=== PATIENT | female | born 1950 | race Caucasian/White ===

== ENCOUNTER → 2018-07-18 10:04 | Outpatient (CLI) | payer MEDICARE, SELFPAY ==
--- NOTE | 2018-07-18 10:08 | MM_ITS ---
MM Dig screening mamm BI w/CAD ORDERING PHYSICIAN : Brittany Crespo PATIENT AGE: 68 years GENDER: Female COMPARISON: May 2016, June 2017, April 2015 INDICATION: ITS.REASON: SCREENING 68-year-old no hormones. No new complaints. Noncontributory family history. TECHNIQUE: Standard CC and MLO images were obtained. R2 CAD reviewed. . Additional right breast CC and nipple profile MLO included FINDINGS: Low density breast with generalized fatty replacement. No dominant mass no suspicious calcifications. No architectural distortion. No new areas of significant concern. No significant change since previous comparison studies listed above . Follow-up in one year recommended IMPRESSION: Stable bilateral mammogram. No new areas of concern. Bilateral follow-up one year recommended BI-RADS Category: 1 Negative RECOMMENDED FOLLOW-UP: 1YR 1 YEAR FOLLOW-UP (A letter has been sent to the patient regarding results of the study.)
== END ==
PROVIDERS: PCP Nurse Practitioner Family; Visit Provider Nurse Practitioner Family
DX: Z12.31 Encounter for screening mammogram for malignant neoplasm of breast (principal)
CPT/HCPCS: 77067

== ENCOUNTER → 2019-08-28 09:31 | Outpatient (CLI) | payer MEDICARE, SELFPAY ==
--- NOTE | 2019-08-28 09:33 | MM_ITS ---
PROCEDURE: MM DIG SCREENING MAMM BI W/CAD Patient Age:69Y CLINICAL INDICATION: SCREENING 69-year-old. No hormones. No new complaints noncontributory family history COMPARISON: [facility] DIG MAMM-SCREEN [facility]KA from 05/10/2015 [facility] DIG MAMM-SCREEN [facility]KA from 05/11/2016 [facility] DIG MAMM-SCREEN [facility]KA W/CAD from 06/28/2017 [facility] MM Dig screening mamm BI w/CAD from 07/18/2018 additional nipple profile cc view right breast and left MLO view TECHNIQUE: Standard CC and MLO images were obtained. R2 CAD reviewed. FINDINGS: Low-density breast with no dominant mass or suspicious calcifications. No significant change since prior studies. Right breast. No new findings. Stable moderate size axillary node again observed Left breast: No new findings. Stable benign spherical calcification. Stable small the intramammary node axillary left breast Bilateral follow-up 1 year recommended IMPRESSION: Stable bilateral mammogram No areas of concern Bilateral follow-up is recommended 1 year BI-RAD Category: 1 Negative FOLLOW-UP: 1YR 1 Year Follow-up (A letter has been sent to the patient regarding results of the study.) Dictated by: Juan Mascorro MD 08/29/2019 08:50 Electronically signed by Juan Mascorro MD in [place] 08/29/2019 08:50
== END ==
PROVIDERS: PCP Nurse Practitioner Family; Visit Provider Nurse Practitioner Family
DX: Z12.31 Encounter for screening mammogram for malignant neoplasm of breast (principal)
CPT/HCPCS: 77067

== ENCOUNTER → 2020-08-30 09:43 | Outpatient (CLI) | payer MEDICARE, SELFPAY ==
--- NOTE | 2020-08-30 10:01 | MM_ITS ---
PROCEDURE: MM DIG SCREENING MAMM BI W/CAD Digital Breast Tomosynthesis Included CLINICAL INDICATION: SCREENING There is no personal or family history of breast cancer. COMPARISON: MG [facility] DIG MAMM-SCREEN [facility]IVKA W/CAD from 06/28/2017 MG [facility] MM Dig screening mamm BI w/CAD from 07/18/2018 MG MM DIG SCREENING MAMM BI W/CAD from 08/28/2019 TECHNIQUE: Standard CC and MLO images and 3D Tomosynthesis was obtained. R2 CAD reviewed. FINDINGS: Scattered fibroglandular densities are seen in each breast. Able benign-appearing nodular density near the axillary tail left breast. There are stable benign-appearing macrocalcifications left breast. There is no new or suspicious lesion in either breast and no suspicious microcalcifications. IMPRESSION: Fibrofatty parenchyma with no suspicious lesions seen BI-RAD Category: 2 Benign Finding(s) FOLLOW-UP: 1YR 1 Year Follow-up (A letter has been sent to the patient regarding results of the study.) Dictated by: Dr. Brian Good MD 09/01/2020 10:20 Dr. Brian Good MD in [place] 09/01/2020 10:20
== END ==
PROVIDERS: PCP Nurse Practitioner Family; Visit Provider Nurse Practitioner Family
DX: Z12.31 Encounter for screening mammogram for malignant neoplasm of breast (principal)
CPT/HCPCS: 77063; 77067

== ENCOUNTER → 2021-02-22 07:47 | Outpatient (CLI) | payer MEDICARE, SELFPAY ==
[2021-02-22 08:22] LABS: Basophils # 0.1 K/mm3 (0-0.2); Basophils % 0.9 % (0.1-2.0); Eosinophils # 0.3 K/mm3 (0.0-0.4); Eosinophils % 3.8 % (0.1-12.0); Hematocrit 40.5 % (37.0-47.0); Hemoglobin 14.4 g/dL (12.2-16.2); Lymphocytes % 30.9 % (10-50); Mean Corpuscular HGB Conc 35.7 g/dL (31.8-35.4); Mean Corpuscular Hemoglobin 35.1 pg (27.0-31.2); Mean Corpuscular Volume 98.3 fl (81-99); Mean Platelet Volume 8.6 fl (7.4-10.4); Monocytes # 0.5 K/mm3 (0.1-1.0); Monocytes % 7.5 % (1.7-9.3); Neutrophils # 3.8 K/mm3 (1.8-7.8); Neutrophils % 56.9 % (37.0-80.0); Platelet Count 82 K/mm3 (142-424); Red Blood Count 4.12 M/mm3 (4.20-5.40); Red Cell Distribution Width 14.1 % (11.5-17.5); White Blood Count 6.6 K/mm3 (4.8-10.8)
[2021-02-22 08:44] LABS: Hemoglobin A1C 6.4 % (4.0-6.0)
[2021-02-22 10:22] LABS: Alanine Aminotransferase 38 U/L (12-78); Albumin Level 3.3 g/dl (3.5-5.0); Alkaline Phosphatase 116 U/L (38-126); Anion Gap 5.9 mEq/L (5-15); Aspartate Amino Transferase 55 U/L (14-36); Bilirubin,Total 1.6 mg/dl (0.2-1.3); Blood Urea Nitrogen 11 mg/dl (7-17); Calcium 8.9 mg/dl (8.4-10.2); Carbon Dioxide 31 mmol/L (22.0-30.0); Chloride 108 mmol/L (98-107); Chol/HDL Ratio 3.2 (1-3.5); Cholesterol 151 mg/dl (140-200); Estimated Glomerular Filt Rate 99 ml/min (>60); GFR (African American) 119 ML/MIN (>60); Globulin 3.2 g/dL (1.3-3.2); Glucose 124 mg/dl (74-100); HDL Cholesterol 47 mg/dl (40-60); Potassium 3.9 mmoL/L (3.5-5.1); Sodium 141 mmol/L (136-145); Total Protein,Serum 6.5 g/dl (6.3-8.2); Triglycerides 68 mg/dl (30-150); VLDL Cholesterol 14 mg/dL (0-40)
[2021-02-22 10:33] LABS: Direct LDL Cholesterol 82.31 mg/dL (100-129)
[2021-02-22 10:53] LABS: Thyroid Stimulating Hormone 2.32 uIU/mL (0.465-4.68)
== END ==
PROVIDERS: Visit Provider Nurse Practitioner Family
DX: D69.6 Thrombocytopenia, unspecified (principal); I10 Essential (primary) hypertension; R94.5 Abnormal results of liver function studies; E78.5 Hyperlipidemia, unspecified; E55.9 Vitamin D deficiency, unspecified; E11.9 Type 2 diabetes mellitus without complications; Z79.84 Long term (current) use of oral hypoglycemic drugs
CPT/HCPCS: 36415; 80053; 80061; 82306; 83036; 84443; 85025

== ENCOUNTER → 2021-06-08 06:53 | Outpatient (CLI) | payer MEDICARE, SELFPAY ==
[2021-06-08 07:48] LABS: Basophils # 0.1 K/mm3 (0-0.2); Basophils % 1.5 % (0.1-2.0); Eosinophils # 0.3 K/mm3 (0.0-0.4); Eosinophils % 4.8 % (0.1-12.0); Hematocrit 42.4 % (37.0-47.0); Hemoglobin 14.6 g/dL (12.2-16.2); Lymphocytes # 1.6 K/mm3 (0.7-4.5); Mean Corpuscular HGB Conc 34.5 g/dL (31.8-35.4); Mean Corpuscular Hemoglobin 35.4 pg (27.0-31.2); Mean Corpuscular Volume 102.4 fl (81-99); Mean Platelet Volume 8.1 fl (7.4-10.4); Monocytes # 0.5 K/mm3 (0.1-1.0); Monocytes % 9.1 % (1.7-9.3); Neutrophils # 2.8 K/mm3 (1.8-7.8); Neutrophils % 53.5 % (37.0-80.0); Platelet Count 86 K/mm3 (142-424); Red Blood Count 4.14 M/mm3 (4.20-5.40); Red Cell Distribution Width 13.6 % (11.5-17.5); White Blood Count 5.2 K/mm3 (4.8-10.8)
[2021-06-08 08:34] LABS: Alanine Aminotransferase 38 U/L (12-78); Albumin Level 3.1 g/dl (3.5-5.0); Alkaline Phosphatase 120 U/L (38-126); Anion Gap 4.9 mEq/L (5-15); Aspartate Amino Transferase 65 U/L (14-36); Bilirubin,Total 1.4 mg/dl (0.2-1.3); Blood Urea Nitrogen 12 mg/dl (7-17); Calcium 9.1 mg/dl (8.4-10.2); Carbon Dioxide 29 mmol/L (22.0-30.0); Chloride 110 mmol/L (98-107); Estimated Glomerular Filt Rate 121 ml/min (>60); GFR (African American) 147 ML/MIN (>60); Globulin 3.2 g/dL (1.3-3.2); Glucose 135 mg/dl (74-100); Potassium 3.9 mmoL/L (3.5-5.1); Sodium 140 mmol/L (136-145); Total Protein,Serum 6.3 g/dl (6.3-8.2)
[2021-06-08 10:06] LABS: Hemoglobin A1C 6.6 % (4.0-6.0)
== END ==
PROVIDERS: PCP Nurse Practitioner Family; Visit Provider Nurse Practitioner Family
DX: E11.9 Type 2 diabetes mellitus without complications (principal); D69.6 Thrombocytopenia, unspecified; Z79.84 Long term (current) use of oral hypoglycemic drugs
CPT/HCPCS: 36415; 80053; 83036; 85025

== ENCOUNTER → 2021-09-05 10:30 | Outpatient (CLI) | payer MEDICARE, SELFPAY ==
--- NOTE | 2021-09-05 10:33 | MM_ITS ---
PROCEDURE INFORMATION: Exam: MG Bilateral Screening 3D Mammography Exam date and time: 09/05/2021 10:33 AM Age: 71 years old Clinical indication: Screening mammogram TECHNIQUE: Imaging protocol: Bilateral screening tomosynthesis and 2D mammography including computer-aided detection (CAD) when performed. COMPARISON: 1. MG MM DIG SCREENING MAMM BI W/CAD 08/30/2020 10:04 AM 2. MG MM DIG SCREENING MAMM BI W/CAD 08/28/2019 9:41 AM 3. MG [facility] MM Dig screening mamm BI w/CAD 07/18/2018 10:36 AM 4. MG [facility] DIG MAMM-SCREEN [facility]KA W/CAD 06/28/2017 9:37 AM FINDINGS: MAMMOGRAPHY: Breast composition: There are scattered areas of fibroglandular density. Mass: None. Architectural distortion: No new or suspicious architectural distortion. Calcifications: No new or suspicious calcifications are present Asymmetric density: No new or suspicious asymmetric density is present Skin thickening: None. Axillary adenopathy: None. IMPRESSION: No mammographic evidence of malignancy. Recommend annual screening mammography unless otherwise clinically indicated. ASSESSMENT: BI-RADS category 1: Negative
== END ==
PROVIDERS: PCP Nurse Practitioner Family; Visit Provider Nurse Practitioner Family
DX: Z12.31 Encounter for screening mammogram for malignant neoplasm of breast (principal)
CPT/HCPCS: 77063; 77067

== ENCOUNTER → 2021-09-08 07:07 | Outpatient (CLI) | payer MEDICARE, SELFPAY ==
[2021-09-08 07:31] LABS: Basophils # 0.1 K/mm3 (0-0.2); Basophils % 1.1 % (0.1-2.0); Eosinophils # 0.3 K/mm3 (0.0-0.4); Eosinophils % 6.2 % (0.1-12.0); Hematocrit 41.5 % (37.0-47.0); Hemoglobin 13.8 g/dL (12.2-16.2); Lymphocytes # 1.7 K/mm3 (0.7-4.5); Lymphocytes % 36.1 % (10-50); Mean Corpuscular HGB Conc 33.3 g/dL (31.8-35.4); Mean Corpuscular Hemoglobin 34.5 pg (27.0-31.2); Mean Corpuscular Volume 103.6 fl (81-99); Mean Platelet Volume 8.7 fl (7.4-10.4); Monocytes # 0.4 K/mm3 (0.1-1.0); Monocytes % 9.1 % (1.7-9.3); Neutrophils # 2.3 K/mm3 (1.8-7.8); Neutrophils % 47.5 % (37.0-80.0); Platelet Count 76 K/mm3 (142-424); White Blood Count 4.8 K/mm3 (4.8-10.8)
[2021-09-08 08:52] LABS: Alanine Aminotransferase 42 U/L (12-78); Albumin/Globulin Ratio 0.9 (1.1-1.8); Alkaline Phosphatase 112 U/L (38-126); Anion Gap 8.1 mEq/L (5-15); Aspartate Amino Transferase 73 U/L (14-36); Bilirubin,Total 1.4 mg/dl (0.2-1.3); Blood Urea Nitrogen 11 mg/dl (7-17); Calcium 8.8 mg/dl (8.4-10.2); Carbon Dioxide 29 mmol/L (22.0-30.0); Chloride 108 mmol/L (98-107); Chol/HDL Ratio 3.8 (1-3.5); Cholesterol 157 mg/dl (140-200); Estimated Glomerular Filt Rate 98 ml/min (>60); GFR (African American) 119 ML/MIN (>60); Globulin 3.2 g/dL (1.3-3.2); Glucose 144 mg/dl (74-100); HDL Cholesterol 41 mg/dl (40-60); Potassium 4.1 mmoL/L (3.5-5.1); Sodium 141 mmol/L (136-145); Total Protein,Serum 6.2 g/dl (6.3-8.2); Triglycerides 81 mg/dl (30-150); VLDL Cholesterol 16 mg/dL (0-40)
[2021-09-08 09:03] LABS: Direct LDL Cholesterol 97.81 mg/dL (100-129)
[2021-09-08 09:08] LABS: 25-OH Vitamin D, Total 47.6 ng/mL (30-100)
== END ==
PROVIDERS: Visit Provider Nurse Practitioner Family
DX: E11.9 Type 2 diabetes mellitus without complications (principal); I10 Essential (primary) hypertension; D69.6 Thrombocytopenia, unspecified; E55.9 Vitamin D deficiency, unspecified; Z79.84 Long term (current) use of oral hypoglycemic drugs
CPT/HCPCS: 36415; 80053; 80061; 82306; 83036; 85025

== ENCOUNTER → 2021-12-13 12:23 | Outpatient (CLI) | payer MEDICARE, SELFPAY ==
[2021-12-13 13:03] LABS: Basophils # 0.1 K/mm3 (0-0.2); Basophils % 0.3 % (0.1-2.0); Eosinophils # 0.1 K/mm3 (0.0-0.4); Eosinophils % 0.7 % (0.1-12.0); Hematocrit 41.3 % (37.0-47.0); Hemoglobin 14.2 g/dL (12.2-16.2); Lymphocytes # 1.3 K/mm3 (0.7-4.5); Lymphocytes % 9.1 % (10-50); Mean Corpuscular HGB Conc 34.4 g/dL (31.8-35.4); Mean Corpuscular Hemoglobin 36.1 pg (27.0-31.2); Mean Corpuscular Volume 105.2 fl (81-99); Monocytes # 0.8 K/mm3 (0.1-1.0); Monocytes % 5.4 % (1.7-9.3); Neutrophils % 84.4 % (37.0-80.0); Platelet Count 85 K/mm3 (142-424); Red Blood Count 3.93 M/mm3 (4.20-5.40); Red Cell Distribution Width 14.5 % (11.5-17.5); White Blood Count 14.2 K/mm3 (4.8-10.8)
[2021-12-13 13:18] LABS: Alanine Aminotransferase 48 U/L (12-78); Albumin Level 2.9 g/dl (3.5-5.0); Albumin/Globulin Ratio 0.9 (1.1-1.8); Alkaline Phosphatase 91 U/L (38-126); Anion Gap 6.4 mEq/L (5-15); Aspartate Amino Transferase 61 U/L (14-36); Bilirubin,Total 2.3 mg/dl (0.2-1.3); Blood Urea Nitrogen 22 mg/dl (7-17); Calcium 8.6 mg/dl (8.4-10.2); Carbon Dioxide 29 mmol/L (22.0-30.0); Chloride 102 mmol/L (98-107); Estimated Glomerular Filt Rate 71 ml/min (>60); GFR (African American) 85 ML/MIN (>60); Globulin 3.1 g/dL (1.3-3.2); Glucose 165 mg/dl (74-100); Potassium 3.4 mmoL/L (3.5-5.1); Sodium 134 mmol/L (136-145)
[2021-12-13 13:23] LABS: C-Reactive Protein 143.6 mg/L (0-4)
[2021-12-13 13:41] LABS: Erythrocyte Sedimentation Rate 86 mm/hr (0-30)
== END ==
PROVIDERS: PCP Nurse Practitioner Family; Visit Provider Nurse Practitioner Family
DX: K52.9 Noninfective gastroenteritis and colitis, unspecified (principal); L03.116 Cellulitis of left lower limb; B95.1 Streptococcus, group B, as the cause of diseases classified elsewhere
CPT/HCPCS: 36415; 80053; 85025; 85651; 86140; 87070; 87077; 87186; 87205

== ENCOUNTER → 2021-12-14 10:19 | Outpatient (CLI) | payer MEDICARE, SELFPAY ==
--- NOTE | 2021-12-14 10:24 | XR_ITS ---
FINAL REPORT CLINICAL HISTORY: CELLULITIS OF LT anterior LEG. stuck in leg with milton barbed wired FINDINGS: LEFT TIBIA FIBULA Two views demonstrate no acute fracture or dislocation. There are mild degenerative changes of the knee and ankle. No soft tissue abnormality is seen. IMPRESSION: No acute process. Reviewed, Interpreted and Dictated by Nahum Ernandez III, MD Transcribed by Shanta Peoples Authenticated by Nahum Ernandez III, MD on 12/14/2021 11:30:36 AM [facility]
== END ==
PROVIDERS: PCP Nurse Practitioner Family; Visit Provider Nurse Practitioner Family
DX: L03.116 Cellulitis of left lower limb (principal)
CPT/HCPCS: 73590

== ENCOUNTER → 2022-06-21 07:12 | Outpatient (CLI) | payer MEDICARE, SELFPAY ==
[2022-06-21 08:57] LABS: Basophils # 0.1 K/mm3 (0-0.2); Basophils % 1.3 % (0.1-2.0); Eosinophils # 0.4 K/mm3 (0.0-0.4); Eosinophils % 8.2 % (0.1-12.0); Hemoglobin 13.9 g/dL (12.2-16.2); Lymphocytes # 1.6 K/mm3 (0.7-4.5); Lymphocytes % 29.3 % (10-50); Mean Corpuscular HGB Conc 33.8 g/dL (31.8-35.4); Mean Corpuscular Hemoglobin 34.9 pg (27.0-31.2); Mean Corpuscular Volume 103.2 fl (81-99); Mean Platelet Volume 9.2 fl (7.4-10.4); Monocytes # 0.5 K/mm3 (0.1-1.0); Monocytes % 8.3 % (1.7-9.3); Neutrophils # 2.8 K/mm3 (1.8-7.8); Platelet Count 89 K/mm3 (142-424); Red Blood Count 3.97 M/mm3 (4.20-5.40); Red Cell Distribution Width 14.3 % (11.5-17.5); White Blood Count 5.4 K/mm3 (4.8-10.8)
[2022-06-21 09:58] LABS: Alanine Aminotransferase 37 U/L (12-78); Albumin Level 3.1 g/dl (3.5-5.0); Alkaline Phosphatase 155 U/L (38-126); Anion Gap 9.2 mEq/L (5-15); Aspartate Amino Transferase 76 U/L (14-36); Bilirubin,Total 1.3 mg/dl (0.2-1.3); Blood Urea Nitrogen 12 mg/dl (7-17); Carbon Dioxide 29 mmol/L (22.0-30.0); Chloride 105 mmol/L (98-107); Estimated Glomerular Filt Rate 98 ml/min (>60); GFR (African American) 119 ML/MIN (>60); Globulin 3.2 g/dL (1.3-3.2); Glucose 137 mg/dl (74-100); Potassium 4.2 mmoL/L (3.5-5.1); Sodium 139 mmol/L (136-145); Total Protein,Serum 6.3 g/dl (6.3-8.2)
[2022-06-21 11:37] LABS: Hemoglobin A1C 6.3 % (4.0-6.0)
== END ==
PROVIDERS: PCP Nurse Practitioner Family; Visit Provider Nurse Practitioner Family
DX: E11.9 Type 2 diabetes mellitus without complications (principal); D69.6 Thrombocytopenia, unspecified; Z79.84 Long term (current) use of oral hypoglycemic drugs
CPT/HCPCS: 36415; 80053; 83036; 85025

== ENCOUNTER → 2022-11-03 07:00 | Outpatient (CLI) | payer MEDICARE, SELFPAY ==
[2022-11-03 07:26] LABS: Basophils # 0.1 K/mm3 (0-0.2); Basophils % 2.1 % (0.1-2.0); Eosinophils # 0.5 K/mm3 (0.0-0.4); Eosinophils % 9.8 % (0.1-12.0); Hematocrit 38.7 % (37.0-47.0); Hemoglobin 13.2 g/dL (12.2-16.2); Lymphocytes # 1.5 K/mm3 (0.7-4.5); Mean Corpuscular HGB Conc 34.1 g/dL (31.8-35.4); Mean Corpuscular Hemoglobin 34.9 pg (27.0-31.2); Mean Corpuscular Volume 102.4 fl (81-99); Monocytes # 0.4 K/mm3 (0.1-1.0); Monocytes % 8.6 % (1.7-9.3); Neutrophils # 2.5 K/mm3 (1.8-7.8); Neutrophils % 50.5 % (37.0-80.0); Platelet Count 81 K/mm3 (142-424); Red Blood Count 3.78 M/mm3 (4.20-5.40); Red Cell Distribution Width 14.8 % (11.5-17.5)
[2022-11-03 07:29] LABS: Hemoglobin A1C 6.5 % (4.0-6.0)
[2022-11-03 07:44] LABS: Chloride 108 mmol/L (98-107); Potassium 3.7 mmoL/L (3.5-5.1); Sodium 138 mmol/L (136-145)
[2022-11-03 07:47] LABS: Alanine Aminotransferase 33 U/L (12-78); Albumin Level 2.9 g/dl (3.5-5.0); Albumin/Globulin Ratio 0.9 (1.1-1.8); Alkaline Phosphatase 115 U/L (38-126); Anion Gap 3.7 mEq/L (5-15); Aspartate Amino Transferase 63 U/L (14-36); Blood Urea Nitrogen 10 mg/dl (7-17); Calcium 8.5 mg/dl (8.4-10.2); Carbon Dioxide 30 mmol/L (22.0-30.0); Chol/HDL Ratio 3.7 (1-3.5); Cholesterol 150 mg/dl (140-200); Estimated Glomerular Filt Rate 98 ml/min (>60); GFR (African American) 119 ML/MIN (>60); Globulin 3.4 g/dL (1.3-3.2); Glucose 141 mg/dl (74-100); HDL Cholesterol 41 mg/dl (40-60); Total Protein,Serum 6.3 g/dl (6.3-8.2); Triglycerides 95 mg/dl (30-150); VLDL Cholesterol 19 mg/dL (0-40)
[2022-11-03 07:58] LABS: Direct LDL Cholesterol 84.13 mg/dL (100-129)
== END ==
PROVIDERS: PCP Internal Medicine Adolescent Medicine; Visit Provider Nurse Practitioner Family
DX: I10 Essential (primary) hypertension (principal); E11.9 Type 2 diabetes mellitus without complications; D69.6 Thrombocytopenia, unspecified; Z79.84 Long term (current) use of oral hypoglycemic drugs
CPT/HCPCS: 36415; 80053; 80061; 83036; 85025

== ENCOUNTER → 2023-05-18 07:14 | Outpatient (CLI) | payer MEDICARE, SELFPAY ==
[2023-05-18 07:38] LABS: Basophils % 0.7 % (0.1-2.0); Eosinophils # 0.4 K/mm3 (0.0-0.4); Eosinophils % 9.7 % (0.1-12.0); Hematocrit 36.7 % (37.0-47.0); Hemoglobin 12.2 g/dL (12.2-16.2); Lymphocytes # 1.3 K/mm3 (0.7-4.5); Lymphocytes % 31.1 % (10-50); Mean Corpuscular HGB Conc 33.3 g/dL (31.8-35.4); Mean Corpuscular Hemoglobin 34.3 pg (27.0-31.2); Mean Platelet Volume 8.3 fl (7.4-10.4); Monocytes # 0.3 K/mm3 (0.1-1.0); Monocytes % 7.3 % (1.7-9.3); Neutrophils # 2.1 K/mm3 (1.8-7.8); Neutrophils % 51.3 % (37.0-80.0); Platelet Count 87 K/mm3 (142-424); Red Blood Count 3.57 M/mm3 (4.20-5.40); Red Cell Distribution Width 14.2 % (11.5-17.5); White Blood Count 4.2 K/mm3 (4.8-10.8)
[2023-05-18 08:47] LABS: Hemoglobin A1C 5.3 % (4.0-6.0)
[2023-05-18 08:54] LABS: Alanine Aminotransferase 32 U/L (12-78); Albumin Level 2.8 g/dl (3.5-5.0); Albumin/Globulin Ratio 0.8 (1.1-1.8); Alkaline Phosphatase 125 U/L (38-126); Anion Gap 8.9 mEq/L (5-15); Aspartate Amino Transferase 60 U/L (14-36); Bilirubin,Total 1.8 mg/dl (0.2-1.3); Blood Urea Nitrogen 11 mg/dl (7-17); Carbon Dioxide 28 mmol/L (22.0-30.0); Chloride 109 mmol/L (98-107); Chol/HDL Ratio 4.4 (1-3.5); Cholesterol 137 mg/dl (140-200); Estimated Glomerular Filt Rate 82 ml/min (>60); GFR (African American) 99 ML/MIN (>60); Globulin 3.5 g/dL (1.3-3.2); Glucose 120 mg/dl (74-100); HDL Cholesterol 31 mg/dl (40-60); Potassium 3.9 mmoL/L (3.5-5.1); Sodium 142 mmol/L (136-145); Total Protein,Serum 6.3 g/dl (6.3-8.2); Triglycerides 111 mg/dl (30-150); VLDL Cholesterol 22 mg/dL (0-40)
[2023-05-18 09:05] LABS: Creatinine,Urine Random 178 mg/dL (Not Estab.); Microalbumin/Creatinine Ratio 5.4
[2023-05-18 09:06] LABS: Direct LDL Cholesterol 65.18 mg/dL (100-129)
[2023-05-18 09:11] LABS: 25-OH Vitamin D, Total 67.6 ng/mL (30-100)
== END ==
PROVIDERS: PCP Nurse Practitioner Family; Visit Provider Nurse Practitioner Family
DX: D69.6 Thrombocytopenia, unspecified (principal); E11.9 Type 2 diabetes mellitus without complications; I10 Essential (primary) hypertension; E55.9 Vitamin D deficiency, unspecified; E78.5 Hyperlipidemia, unspecified
CPT/HCPCS: 36415; 80053; 80061; 82043; 82306; 82570; 83036; 85025

== ENCOUNTER 2023-11-23 07:53 | Outpatient (CLI) | payer MEDICARE, SELFPAY ==
[2023-11-23 08:52] LABS: Basophils # 0.1 K/mm3 (0-0.2); Basophils % 1.5 % (0.1-2.0); Eosinophils # 0.5 K/mm3 (0.0-0.4); Hematocrit 38.1 % (37.0-47.0); Hemoglobin 13.2 g/dL (12.2-16.2); Lymphocytes # 1.2 K/mm3 (0.7-4.5); Lymphocytes % 27.3 % (10-50); Mean Corpuscular HGB Conc 34.7 g/dL (31.8-35.4); Mean Corpuscular Hemoglobin 36.9 pg (27.0-31.2); Mean Corpuscular Volume 106.4 fl (81-99); Monocytes # 0.4 K/mm3 (0.1-1.0); Monocytes % 8.4 % (1.7-9.3); Neutrophils # 2.4 K/mm3 (1.8-7.8); Neutrophils % 52.8 % (37.0-80.0); Platelet Count 68 K/mm3 (142-424); Red Blood Count 3.58 M/mm3 (4.20-5.40); Red Cell Distribution Width 14.3 % (11.5-17.5); White Blood Count 4.5 K/mm3 (4.8-10.8)
[2023-11-23 09:30] LABS: Alanine Aminotransferase 38 U/L (12-78); Albumin Level 2.9 g/dl (3.5-5.0); Albumin/Globulin Ratio 0.9 (1.1-1.8); Alkaline Phosphatase 122 U/L (38-126); Anion Gap 6.7 mEq/L (5-15); Aspartate Amino Transferase 70 U/L (14-36); Blood Urea Nitrogen 14 mg/dl (7-17); Calcium 9.3 mg/dl (8.4-10.2); Carbon Dioxide 28 mmol/L (22.0-30.0); Chloride 108 mmol/L (98-107); Chol/HDL Ratio 3.6 (1-3.5); Cholesterol 153 mg/dl (140-200); Estimated Glomerular Filt Rate 82 ml/min (>60); GFR (African American) 99 ML/MIN (>60); Globulin 3.3 g/dL (1.3-3.2); Glucose 117 mg/dl (74-100); HDL Cholesterol 43 mg/dl (40-60); Potassium 3.7 mmoL/L (3.5-5.1); Sodium 139 mmol/L (136-145); Total Protein,Serum 6.2 g/dl (6.3-8.2); Triglycerides 82 mg/dl (30-150); VLDL Cholesterol 16 mg/dL (0-40)
[2023-11-23 09:55] LABS: Direct LDL Cholesterol 78.83 mg/dL (100-129)
== END 2023-11-23 23:59 ==
LOC: LAB 07:53
PROVIDERS: PCP Nurse Practitioner Family; Visit Provider Nurse Practitioner Family
DX: I10 Essential (primary) hypertension (principal); E11.9 Type 2 diabetes mellitus without complications; E78.5 Hyperlipidemia, unspecified; D69.6 Thrombocytopenia, unspecified
CPT/HCPCS: 36415; 80053; 80061; 83036; 85025

== ENCOUNTER 2024-02-07 13:35 | Outpatient (CLI) | payer MEDICARE, SELFPAY ==
--- NOTE | 2024-02-07 | CA_ITS ---
FINAL REPORT TECHNIQUE: Multiple transverse and longitudinal images were performed of the right femoral-popliteal deep venous system with augmentation and compression maneuvers. CLINICAL HISTORY: Right lower extremity pain and edema FINDINGS: Right lower extremity duplex ultrasound demonstrates normal flow in the deep venous system. There is no abnormal echogenicity to suggest thrombus. There is normal compression and augmentation. A visualized lymph node seen in the right groin demonstrates a fatty hilum. IMPRESSION: No evidence of right DVT. Reviewed, Interpreted and Dictated by Tristan Chinchilla MD Transcribed by Ann Marsh Authenticated and [facility]
== END 2024-02-07 23:59 | disposition home or self-care (01) ==
LOC: RT 13:36
PROVIDERS: PCP Nurse Practitioner Family; Visit Provider Physician Assistant
DX: M79.604 Pain in right leg; R60.1 Generalized edema
CPT/HCPCS: 93971

== ENCOUNTER 2024-03-14 06:52 | Outpatient (CLI) | payer MEDICARE, SELFPAY ==
[2024-03-14 07:26] LABS: Basophils % 0.9 % (0.1-2.0); Eosinophils # 0.4 K/mm3 (0.0-0.4); Eosinophils % 9.8 % (0.1-12.0); Hematocrit 34.5 % (37.0-47.0); Lymphocytes # 1.5 K/mm3 (0.7-4.5); Lymphocytes % 35.8 % (10-50); Mean Corpuscular HGB Conc 34.9 g/dL (31.8-35.4); Mean Corpuscular Hemoglobin 36.7 pg (27.0-31.2); Mean Corpuscular Volume 105.4 fl (81-99); Mean Platelet Volume 9.2 fl (7.4-10.4); Monocytes # 0.4 K/mm3 (0.1-1.0); Monocytes % 8.5 % (1.7-9.3); Neutrophils # 1.9 K/mm3 (1.8-7.8); Platelet Count 67 K/mm3 (142-424); Red Blood Count 3.28 M/mm3 (4.20-5.40); Red Cell Distribution Width 14.7 % (11.5-17.5); White Blood Count 4.2 K/mm3 (4.8-10.8)
[2024-03-14 08:16] LABS: Hemoglobin A1C 5.4 % (4.0-6.0)
[2024-03-14 09:29] LABS: Chloride 109 mmol/L (98-107); Sodium 136 mmol/L (136-145)
[2024-03-14 09:30] LABS: Potassium 4.1 mmoL/L (3.5-5.1)
[2024-03-14 09:32] LABS: Alanine Aminotransferase 29 U/L (12-78); Alkaline Phosphatase 119 U/L (38-126); Anion Gap 5.1 mEq/L (5-15); Aspartate Amino Transferase 58 U/L (14-36); Bilirubin,Total 1.6 mg/dl (0.2-1.3); Blood Urea Nitrogen 10 mg/dl (7-17); Carbon Dioxide 26 mmol/L (22.0-30.0); Estimated Glomerular Filt Rate 82 ml/min (>60); GFR (African American) 99 ML/MIN (>60)
[2024-03-14 09:33] LABS: Albumin Level 2.7 g/dl (3.5-5.0); Albumin/Globulin Ratio 0.8 (1.1-1.8); Calcium 9.3 mg/dl (8.4-10.2); Globulin 3.4 g/dL (1.3-3.2); Glucose 93 mg/dl (74-100); Total Protein,Serum 6.1 g/dl (6.3-8.2)
== END 2024-03-14 23:59 | disposition home or self-care (01) ==
LOC: LAB 06:53
PROVIDERS: PCP Nurse Practitioner Family; Visit Provider Nurse Practitioner Family
DX: I10 Essential (primary) hypertension (principal); E11.69 Type 2 diabetes mellitus with other specified complication; E55.9 Vitamin D deficiency, unspecified
CPT/HCPCS: 36415; 80053; 82306; 83036; 85025

== ENCOUNTER 2024-07-08 07:06 | Outpatient (CLI) | payer MEDICARE, SELFPAY ==
[2024-07-08 07:41] LABS: Albumin Level 2.4 g/dl (3.5-5.0); Chloride 108 mmol/L (98-107)
[2024-07-08 07:42] LABS: Basophils % 0.9 % (0.1-2.0); Eosinophils # 0.3 K/mm3 (0.0-0.4); Eosinophils % 7.2 % (0.1-12.0); Hematocrit 34.6 % (37.0-47.0); Hemoglobin 12.3 g/dL (12.2-16.2); Lymphocytes # 1.2 K/mm3 (0.7-4.5); Lymphocytes % 29.2 % (10-50); Mean Corpuscular HGB Conc 35.4 g/dL (31.8-35.4); Mean Corpuscular Hemoglobin 36.2 pg (27.0-31.2); Mean Corpuscular Volume 102.3 fl (81-99); Mean Platelet Volume 8.3 fl (7.4-10.4); Monocytes # 0.4 K/mm3 (0.1-1.0); Neutrophils # 2.1 K/mm3 (1.8-7.8); Neutrophils % 52.6 % (37.0-80.0); Platelet Count 69 K/mm3 (142-424); Potassium 3.8 mmoL/L (3.5-5.1); Red Blood Count 3.38 M/mm3 (4.20-5.40); Red Cell Distribution Width 14.5 % (11.5-17.5); Sodium 139 mmol/L (136-145); White Blood Count 3.9 K/mm3 (4.8-10.8)
[2024-07-08 07:44] LABS: Alanine Aminotransferase 30 U/L (12-78); Anion Gap 6.8 mEq/L (5-15); Aspartate Amino Transferase 53 U/L (14-36); Blood Urea Nitrogen 11 mg/dl (7-17); Carbon Dioxide 28 mmol/L (22.0-30.0); Estimated Glomerular Filt Rate 70 ml/min (>60); GFR (African American) 85 ML/MIN (>60)
[2024-07-08 07:45] LABS: Albumin/Globulin Ratio 0.8 (1.1-1.8); Alkaline Phosphatase 105 U/L (38-126); Bilirubin,Total 1.9 mg/dl (0.2-1.3); Calcium 8.8 mg/dl (8.4-10.2); Chol/HDL Ratio 3.5 (1-3.5); Cholesterol 136 mg/dl (140-200); Globulin 3.2 g/dL (1.3-3.2); Glucose 109 mg/dl (74-100); HDL Cholesterol 39 mg/dl (40-60); Total Protein,Serum 5.6 g/dl (6.3-8.2); Triglycerides 74 mg/dl (30-150); VLDL Cholesterol 15 mg/dL (0-40)
[2024-07-08 07:56] LABS: Direct LDL Cholesterol 61.34 mg/dL (100-129)
[2024-07-08 08:39] LABS: Hemoglobin A1C 4.7 % (4.0-6.0)
== END 2024-07-08 23:59 | disposition home or self-care (01) ==
LOC: LAB 07:11
PROVIDERS: PCP Nurse Practitioner Family; Visit Provider Nurse Practitioner Family
DX: I10 Essential (primary) hypertension (principal); E11.9 Type 2 diabetes mellitus without complications; E78.5 Hyperlipidemia, unspecified
CPT/HCPCS: 36415; 80053; 80061; 83036; 85025

== ENCOUNTER 2024-12-17 09:16 | Outpatient (CLI) | payer MEDICARE, SELFPAY ==
--- NOTE | 2024-12-17 09:20 | US_ITS ---
FINAL REPORT CLINICAL HISTORY: ABNORMAL LFT S COMPARISON: None FINDINGS: HEPATIC ULTRASOUND Multiple transverse and longitudinal scans were performed of the right upper quadrant of the abdomen. FINDINGS: There is a hypoechoic mass in the central anterior liver measuring up to 46 mm. The lesion appears solid. The remainder of the liver parenchyma is unremarkable. There is mild biliary ductal dilatation measuring up to 10 mm. The gallbladder is surgically absent. No evidence of ascites. IMPRESSION: Liver mass. Recommend MR correlation using hemangioma protocol. Mild biliary ductal dilatation. This could also be better evaluated with MRI. Reviewed, Interpreted and Dictated by Neva Valente MD Transcribed by Tere Bo Authenticated and [facility]
== END 2024-12-17 23:59 | disposition home or self-care (01) ==
LOC: RAD 09:17
PROVIDERS: PCP Nurse Practitioner Family; Visit Provider Physician Assistant Medical
DX: R79.89 Other specified abnormal findings of blood chemistry (principal); K76.0 Fatty (change of) liver, not elsewhere classified
CPT/HCPCS: 76705

== ENCOUNTER 2025-05-21 15:46 | Outpatient (CLI) | payer MEDICARE, SELFPAY ==
--- OUTSIDE RECORDS SUMMARY | 2025-04-02 06:13 | XMS_ITS | Encounter Summary ---
Author Organization [facility] Address [address] [id number] Care Team Providers Care Mechanical Designer Name Role Phone Juaquin Anaya MD Primary Care Provider [phone] Eryn Valente MD Unavailable [phone] Reason for Referral * Consultation (Routine) - Closed Specialty Diagnoses / Procedures Referred By Contact Referred To Contact Interventional Radiology Diagnoses Liver cell carcinoma Kanika Diaz MD [address] [place] [address] Phone: tel:[phone] fax:[phone] [facility] Vascular Interventional Radiology [address], [facility] [address] [place] [address] Phone: tel: Referral ID Status Reason Start Date Expiration Date V isits Requested Visits Authorized [id number] Closed Specialty Services Required 04/02/2025 10/02/2026 1 1 * Imaging (Routine) - Closed Specialty Diagnoses / Procedures Referred By Salvador chopra Referred To Contact Radiology Diagnoses Liver cell carcinoma Procedures IR Therasphere Treatment Kanika Diaz MD [address] [place] [address] Phone: tel: fax: Referral ID Status Reason Start Date Expiration Date Visits Re quested Visits Authorized [id number] Closed 03/26/2025 09/25/2026 1 1 Reason for Visit * Imaging (Routine) - Closed Specialty Diagnoses / Procedures Referred By Contac t Referred To Contact Radiology Diagnoses Liver cell carcinoma Procedures IR Therasphere Treatment Kanika Diaz MD [address] [place] [address] Phone: tel: fax: Referral ID Status Reason Start Date Expiration Date Visits Re quested Visits Authorized [id number] Closed 03/26/2025 09/25/2026 1 1 Encounter Details Date Type Department Care Team (Latest Contact Info) Description 04/02/2025 6:13 AM EDT - 04/02/2025 7:59 AM EDT Hospital Encounter [facility] Interventional Radiology [address] [place] [phone] Kanika Diaz MD [address] [place] [address] Cynthia Mir RN HOSPTIAL SYSTEM DESIGNER RECOVERY Liver cell carcinoma Discharge Disposition: Home or Self Care Social History Tobacco Use Types Packs/Day Years Used Date Smoking Tobacco: Never Passive Smoke Exposure: Never Smokeless Tobacco: Never Alcohol Use Standard Drinks/Week Comments No 0 (1 standard drink = 0.6 oz pur e alcohol) PHQ-2 Answer Date Recorded Patient Health Questionnaire-2 Score 0 12/02/2024 PHQ-9 Answer Date Recorded Patient Health Questionnaire-9 Score 0 12/02/2024 Comments No Sex and Gender Information Value Date Recorded Sex Assigned at Not on file Legal Sex Female 6:06 PM EDT Gender Identity Not on file Sexual Orientation Not on file documented as of this encounter Last Filed Vital Signs Vital Sign Reading Time Taken Comments Blood Pressure 121/48 04/02/2025 7:25 AM EDT Pulse 56 04/02/2025 7:30 AM EDT Temperature 36.7 C (98 F) 04/02/2025 7:10 AM EDT Respiratory Rate 17 04/02/2025 7:30 AM EDT Oxygen Saturation 98% 04/02/2025 7:30 AM EDT Inhaled Oxygen Concentration - - Weight - - Height - - Body Mass Index - - documented in this encounter Discharge Instructions * Discharge Instructions* Cynthia Mir RN - 04/02/2025 11:33 AM EDT *Interventional Radiology* (IR) Questions/Concerns & Appointments If there are questions or concerns after discharge please call: [facility]iology Clinic at [phone] Sunday - Sunday 8:00 AM to 4:30 PM After hours, weekends, and holidays please call [phone] and ask for the Interventional Radiology provider/Resident on-call For Emergencies please go to the nearest Emergency Room or dial 911. Intervention Radiology Appointments: If you need to reschedule a procedure, please call our Schedulers at [phone], option [phone]. If you need to schedule or reschedule a clinic appointment, please call [phone]. [facility] Vascular and Interventional Radiology Clinic [id number] [facility] [address] [place] [address] DISCHARGE INSTRUCTIONS FOR GROIN STICK After discharge, take it easy for the next 72 hours. The day you come home from your procedure, youare instructed to rest with as little walking as necessary. You should avoid going up and down stairs. You may sleep, watch TV and read. Day #1 (the day after your procedure): You may start to increase your walking but only minimal walking. Continue to mostly rest. Day #2 (the second day after your procedure): You may resume regular (not strenuous) walking. Do not do any strenuous activity or lift anything heavier than a carton of milk for 72 hours after the procedure. Try not to go up and down stairs too frequently. You should not drive for at least 48 hours. There will be a dressing over your groin. You may remove it after 24 hours, but keep the area cleanand dry. Although you may shower with no dressing on your groin after 24 hours, please place a Band-Aid at the puncture site after showering. Pat site dry. Do Not Rub. No tub baths, swimming or submerging in water for the next week. It is normal to have a little more discomfort in your groin the day after the procedure. You may have slightly more bruising at the puncture site. This is normal. You may take acetaminophen in regular or extra strength to minimize the discomfort. Your doctor or nurse practitioner will contact you within a couple of days after your procedure to see how you are feeling and discuss any follow-up plan. If you should develop bleeding at your groin site, apply direct pressure for 15 to 20 minutes. Oncebleeding stop lay flat for 2 hours. If bleeding persists continue to hold pressure and call 911 or go to the emergency department WHEN TO CALL YOUR HEALTHCARE PROVIDER: - Severe pain near the groin site - Fainting or feeling lightheaded - Trouble breathing - A fever of 100.4F (38C) or higher, or as directed by your healthcare provider - Feeling weak - Foot that is cold to touch on the same side of the groin stick documented in this encounter Medications at Time of Discharge Calcium Carb-Cholecalcif flaca (Caltrate 600+D3 Soft) 600-20 MG-MCG chewable tablet in the morning. carvedilol (Coreg) 3.125 MG tablet TAKE 1 TABLET BY MOUTH EVERY MORNING AND TAKE 1 TABLET BY MOUTH EVERY EVENING with food 60 tablet 2 03/04/2025 losartan-hydroCH LOROthiazide (Hyzaar) 100-25 MG tablet Take 1 tablet by mouth Daily. nutrional drink glucose control (Boost Glucose Control) liquid liquid Drink 1 supplement up to 3 times a day or As Directed as a nutritional supplement. Flavor preference: per patient. Please dispense up to 4 cases at a time per patient request 237 mL 25 12/02/2024 Semaglutide,0.25 or 0.5MG/DOS, (Ozempic, 0.25 or 0.5 MG/DOSE,) 2 MG/3ML solution pen-injector spironolactone (Aldactone) 25 MG tablet Take 1 tablet by mouth twice a day. 07/09/2024 documented as of this encounter Miscellaneous Notes * Post-Procedure Note - Gonzalez Beck MD - 04/02/2025 8:00 AM EDT Vascular and Interventional Radiology Brief Postprocedure Note Attending: Dr. Diaz Head Of Talent Management: Dr. Beck Pre-operative Diagnosis: LI-RADS 5 segment 5/6 lesion. Post-operative Diagnosis: Same Type of Anesthesia: Conscious Sedation Description of Findings: Technically successful segment 6 and 8 Y 90 treatment. No immediate complication. Technical/Surgical Procedures Used: Please see separate PACS dictation for further details. Specimen Obtained: No Complications: None Estimated Blood Loss: minimal Procedure Events Event Event Time Sedation Start 04/02/2025 8:44 AM Sedation Stop 04/02/2025 10:19 AM See detailed result report with images in PACS. The patient tolerated the procedure well without incident or complication and is in stable condition. * Pre-Procedure Note - Gonzalez Beck MD - 04/02/2025 8:00 AM EDT Images from the original note were not included. INTERVENTIONAL RADIOLOGY SEDATION PRE-PROCEDURAL ASSESSMENT AND PLAN OF CARE Indication for procedure: The encounter diagnosis was Liver cell carcinoma. Planned Procedure: Theraspheres treatment Relevant past medical history: Lirads 5 lesion segment 5/6 Previous problems with surgery, anesthesia or sedation: No Previous family history or problems with anesthesia or sedation: No History of tobacco use, alcohol use, or substance abuse: Tobacco Use History[1], Social History Substance and Sexual Activity Alcohol Use No , Social History Substance and Sexual Activity Drug Use No Comment: Drug use: No illicit drug use Height and Weight: Visit Vitals BP (!) 121/48 Pulse 56 Temp 36.7 ??C (98 ??F) SpO2 98% Allergies to medication: Sulfa drugs Current medications: Current Medications[2] Relevant Labs: Lab Results Component Value Date CREATININE 0.94 03/11/2025 EGFR 63.4 03/11/2025 INR 1.3 (H) 03/11/2025 Planned Sedation/Anesthesia: Moderate Airway assessment: normal Mallampati Score: III (soft and hard palate and base of uvula visible) ASA: ASA 2 - Patient with mild systemic disease with no functional limitations Directed physical examination: Vitals: 04/02/25 0730 BP: Pulse: 56 Resp: 17 Temp: SpO2: 98% Patient is awake, alert and oriented. Hemodynamically stable. No respiratory difficulty. No acute distress. Benefits, risks and alternatives of procedure and planned sedation have been discussed with the patient and/or their environmental marketing representative. All questions answered and they agree to proceed. [1] Social History Tobacco Use Smoking Status Never Passive exposure: Never Smokeless Tobacco Never [2] Current Outpatient Medications Medication Sig Dispense Refill Calcium Carb-Cholecalciferol (Caltrate 600+D3 Soft) 600-20 MG-MCG chewable tablet in the morning. carvedilol (Coreg) 3.125 MG tablet TAKE 1 TABLET BY MOUTH EVERY MORNING AND TAKE 1 TABLET BY MOUTH EVERY EVENING with food (Patient taking differently: Take 1 tablet by mouth 2 times a day with meals.) 60 tablet 2 losartan-hydroCHLOROthiazide (Hyzaar) 100-25 MG tablet Take 1 tablet by mouth Daily. nutrional drink glucose control (Boost Glucose Control) liquid liquid Drink 1 supplement up to 3 times a day or As Directed as a nutritional supplement. Flavor preference: per patient. Please dispense up to 4 cases at a time per patient request 237 mL 25 Semaglutide,0.25 or 0.5MG/DOS, (Ozempic, 0.25 or 0.5 MG/DOSE,) 2 MG/3ML solution pen-injector spironolactone (Aldactone) 25 MG tablet Take 1 tablet by mouth twice a day. Current Facility-Administered Medications Medication Dose Route Frequency Provider Last Rate Last Admin Heparin in NS 1999-0.9 UNIT/L-% infusion - Pyxis Override Pull iohexol (OMNIPaque) 300 MG/ML injection - Pyxis Override Pull lidocaine PF (Xylocaine) 1 % injection - Pyxis Override Pull sodium chloride 0.9 % flush 10 mL 10 mL Intravenous q12h Kanika Diaz MD And sodium chloride 0.9 % flush 10 mL 10 mL Intravenous PRN Kanika Diaz MD * H&P - Gonzalez Beck MD - 04/02/2025 7:59 AM EDT Images from the original note were not included. Subjective Chief complaint LIRADS 5 segment 5/6 lesion here for theraspheres treatment. History Of Present Illness Malini Ma is a 74 y.o. female with PMH of CAD, HTN, PAC, Takotsubo Cardiomyopathy, T2DM, obesity with BMI 38, pantycopenia, hepatic steatosis, elevated LFTs, and recently discovered right hepatic lobe mass. MR abdomen on 02/16/25 demonstrated cirrhosis, borderline splenomegaly, multiple portosystemic collaterals, and a segment V/ 4.5 cm LI-RADS 5 (Definite HCC) mass. AFP on 12/02/24 was 4.5, Tbili on 03/11/25 was 1.3. She was presented to tumor board on 02/20/25 with plan for y90. ECOG 1. Patient underwent Theraspheres mapping on of the segment V/ mass. She does not have any new complaints today and is amenable with proceeding with Theraspheres treatment. Medical/Surgical/Social/Family History Past Medical History[1] Surgical History[2] Social History[3] Family History[4] Travel History Relevant International Travel History: Travel Screening Question Response Have you been in contact with someone who was sick? No / Unsure Do you have any of the following new or worsening symptoms? None of these Have you traveled internationally or domestically in the last month? No Travel History Travel since 03/03/25 No documented travel since 03/03/25 Allergies Sulfa drugs Medications Current Medications[5] Objective A complete ROS was obtained. All were negative except as noted in HPI. Reviewed and is negative as pertains to the current illness unless specifically specified. General: resting comfortably, in no apparent distress HEENT: normocephalic, atraumatic, PERRL, conjunctiva clear, oropharynx unremarkable Cardiovascular: regular rate and rhythm. Respiratory: without signs of respiratory distress. Abdomen: soft, nontender, nondistended, without masses. Extremities: no gross deformities, intact range of motion, without cyanosis or edema. Small skin tear in right inguinal fold. Neuro: normal reactivity for age. Last Recorded Vitals Blood pressure (!) 121/48, pulse 56, temperature 36.7 ??C (98 ??F), resp. rate 17, SpO2 98%. Results Review {Vanishing Link Review Results :[id number] I have reviewed the latest lab and imaging results. Assessment & Plan Liver cell carcinoma 74 y.o. female with PMH of hepatic steatosis, elevated LFTs, and recently discovered right hepatic lobe mass. MR abdomen on 02/16/25 demonstrated a segment V/ 4.5 cm LI-RADS 5 mass. Patient presents for Theraspheres treatment following mapping on 03/16/25. PLAN: Image guided Theraspheres treatment of segment V/ mass. [1] Past Medical History: Diagnosis Date Personal history of other diseases of the circulatory system History of hypertension Personal history of other endocrine, nutritional and metabolic disease History of diabetes mellitus [2] Past Surgical History: Procedure Laterality Date GALLBLADDER SURGERY N/A Gallbladder surgery from [facility] HAND SURGERY N/A Hand surgery from [facility] HYSTERECTOMY N/A Hysterectomy from [facility] WISDOM TOOTH EXTRACTION N/A [place] tooth extraction from [facility] [3] Social History Tobacco Use Smoking status: Never Passive exposure: Never Smokeless tobacco: Never Vaping Use Vaping status: Never Used Substance Use Topics Alcohol use: No Drug use: No Comment: Drug use: No illicit drug use [4] Family History Problem Relation Name Age of Onset Aneurysm Mother [5] Current Outpatient Medications Medication Sig Dispense Refill Calcium Carb-Cholecalciferol (Caltrate 600+D3 Soft) 600-20 MG-MCG chewable tablet in the morning. carvedilol (Coreg) 3.125 MG tablet TAKE 1 TABLET BY MOUTH EVERY MORNING AND TAKE 1 TABLET BY MOUTH EVERY EVENING with food (Patient taking differently: Take 1 tablet by mouth 2 times a day with meals.) 60 tablet 2 losartan-hydroCHLOROthiazide (Hyzaar) 100-25 MG tablet Take 1 tablet by mouth Daily. nutrional drink glucose control (Boost Glucose Control) liquid liquid Drink 1 supplement up to 3 times a day or As Directed as a nutritional supplement. Flavor preference: per patient. Please dispense up to 4 cases at a time per patient request 237 mL 25 Semaglutide,0.25 or 0.5MG/DOS, (Ozempic, 0.25 or 0.5 MG/DOSE,) 2 MG/3ML solution pen-injector spironolactone (Aldactone) 25 MG tablet Take 1 tablet by mouth twice a day. Current Facility-Administered Medications Medication Dose Route Frequency Provider Last Rate Last Admin Heparin in NS 1999-0.9 UNIT/L-% infusion - Pyxis Override Pull iohexol (OMNIPaque) 300 MG/ML injection - Pyxis Override Pull lidocaine PF (Xylocaine) 1 % injection - Pyxis Override Pull sodium chloride 0.9 % flush 10 mL 10 mL Intravenous q12h Kanika Diaz MD And sodium chloride 0.9 % flush 10 mL 10 mL Intravenous PRN Kanika Diaz MD Cosigned by Kanika Diaz MD at 04/06/2025 6:37 PM EDT Associated attestation - Kanika Diaz MD - 04/06/2025 6:37 PM EDT I saw and evaluated the patient with the resident/fellow. I discussed the case with the resident/fellow and agree with the findings and plan as documented. documented in this encounter Plan of Treatment Upcoming Encounters Date Type Department Care Team (Late st Contact Info) Description 06/04/2025 1:00 PM EDT Office Visit [facility] Medicine Specialties [address] [place] [address] Jefferson Barger PA [address] [place] [address] 07/03/2025 12:30 PM EDT Appointment [facility] MRI [address] [place] [id number] 07/06/2025 11:00 AM EDT Office Visit [facility] Vascular Interventional Radiology [address] [facility] [address] [place] [phone] Scheduled Referrals Name Type Priority Associated Diagnoses Order Schedule Discharge Ambulatory referral to [facility] Outpatient Referral Routine Liver cell carcinoma Expected: 04/16/2025, Expires: 10/04/2026 documented as of this encounter Goals Goal Patient Goal Type Associated Problems Recent Progress Patient-Stated? Author Autogenera dajuan Goal Care Plan Autogenerated Problem No Isabell Farrar documented as of this encounter Procedures Procedure Name Priority Date/Time Associated Diagnosis Comments IR THERASPHERE TREATMENT Routine 04/02/2025 10:30 AM EDT Liver cell carcinoma EXTRA TUBE LAVENDER TOP Routine 04/02/2025 7:28 AM EDT EXTRA TUBES Routine 04/02/2025 7:28 AM EDT COMPREHENSIVE METABOLIC PANEL, PLASMA STAT 04/02/2025 7:28 AM EDT documented in this encounter Results * IR Therasphere Treatment (04/02/2025 10:30 AM EDT) Anatomical Region Laterality Modality X-Ray Angiograph y Impressions 04/06/2025 7:20 PM EDT Technically successful glass microspheres selective internal radiation therapy of the segment 8 branch of the right hepatic artery of the liver as described above. Technically successful glass microspheres selective internal radiation therapy of the segment 6 branch of the right hepatic artery of the liver as described above. PLAN: -Standard postprocedural monitoring while in recovery. -Strict bedrest x2 hours with right leg straight. -Patient will follow-up in outpatient VIR clinic in 2 weeks. CRITICAL RESULT: No. COMMUNICATION: Per this written report. By electronically signing this report, I, the attending physician, attest that I was present for the entire procedure(s) and agree with the final edited report. Drafted by Gonzalez Beck MD on 04/02/2025 11:45 AM Final report signed by Kanika Diaz MD on 04/06/2025 7:20 PM Narrative 04/06/2025 7:20 PM EDT CLINICAL INDICATION: 74 y.o. female with PMH of hepatic steatosis, elevated LFTs, and recently discovered right hepatic lobe mass. MR abdomen on 02/16/25 demonstrated a segment V/ 4.5 cm LI-RADS 5 mass. Patient presents for Theraspheres treatment following mapping on 03/16/25. TECHNIQUE: Rehab Care Assistant: Kanika Diaz MD Secondary Patented Hogshead Assembler: Gonzalez Beck M.D. Nurse: Erin Sow Technologist: Eugene Alvarez and Toño Hooks Radiation dose: 2375 mGy Medications: IV conscious sedation with continuous physiologic monitoring provided by a qualified healthcare professional using Versed 2 mg IV and Fentanyl 100 mcg IV. Nitroglycerin 200 mcg intra-arterial administration. 1% Lidocaine SQ. Antibiotics: None. Duration of Conscious Sedation: Time out: 0844 hours close out: 1019 hours Data points as follows: Dose 1 (segment 8): Previous Dose: None. Lung dose: 2.72 daniels Dose Administered today: 49.37 mci of Y-90 total dose. PreCal ordered: 1.83 GBq x 1 vials Estimated lung mass: 1 kg Dose 2 (segment 6): Previous Dose: 49.37 mCi to segment 8 branch RHA. Lung dose: 2.68 daniels Dose Administered today: 48.11 mci of Y-90 total dose. PreCal ordered: 1.88 GBq x 1 vials Estimated lung mass: 1 kg Treatment Simulation: Performed on 03/16/2025. TC-99m MAA planar scan and SPECT/CT images demonstrated predominant intrahepatic localization with lung shunt fraction of 3%. Correlation with MRI of the liver from 02/16/2025 was made. Correlation with angiographic finding made between initial planning angiography and same dayTC-99m MAA with today's planned angiographic site of administration. Procedure: Hepatic Intra-arterial Administration of Yttrium-90 spheres for Brachytherapy of segment 5/6 mass. The patient was identified. After the risks and benefits of the procedure were discussed with the patient, an informed written consent was obtained. The patient was then brought back to the interventional suite and placed supine on the table. A time out was performed. The patient was then prepped and draped in the normal sterile fashion. [facility] AppGratiss safety checklist was followed before, during, and at the end of the procedure. The right common femoral artery was identified in the groin. An infrainguinal site of access was marked on fluoroscopy. Ultrasound guidance was used to evaluate potential access sites. The right common femoral artery was identified as adequate in caliber and patency for vascular access. Local anesthetic was administered. Ultrasound guided access to the right common femoral artery was obtained with a 21 gauge Micropuncture needle. Ultrasound images were sent to permanent storage in PACS. After standard exchanges, a 0.035 inch Bentson wire was advanced. Access was secured using a 5 Fr vascular sheath. A 5 Afghan Cobra catheter was advanced over the Bentson wire and formed in the descending aorta. Using the 5 Afghan catheter, the Celiac artery was catheterized. The position was confirmed with hand contrast injection. The catheter was advanced into the common hepatic artery over a 0.035 inch Glidewire. Hand contrast injection again confirmed appropriate positioning. Digital subtraction angiography was performed. Through the Cobra catheter, a 2.4 Afghan Progreat microcatheter in conjunction with the microwire was advanced into the segment 8 branch of the right hepatic artery and digital subtraction angiography was performed. From this position, CT arterial and venous phase images were obtained to confirm appropriate catheter positioning and coverage of the segment 8 portion of the right hepatic lobe mass. Intra-arterial Theraspheres glass spheres administration was performed with the microcatheter in this location as per IFU by the Interventional Radiologist Dr. Kanika Diaz. Subsequently, the microcatheter was removed along with BTG's administration tubing and placed in appropriate radioactive waste container as per IFU. Attention was then turned to the segment 6 branch of the right hepatic artery supplying the segment 5/6 mass. Through the 5 Afghan Cobra catheter, a new 2.4 Afghan Progreat microcatheter in conjunction with the microwire was advanced into the segment 6 branch of the right hepatic artery and digital subtraction angiography was performed. Mild spasm was noted. Therefore, 200 mcg nitroglycerin was instilled via the microcatheter. From this position, CT arterial and venous phase images were obtained to confirm appropriate catheter positioning and coverage of the segment 6 portion of the right hepatic lobe mass. Intra-arterial Theraspheres glass spheres administration was performed with the microcatheter in this location as per IFU by the Interventional Radiologist Dr. Kanika Diaz. Subsequently, the microcatheter and Cobra catheter were removed in unison along with BTG's administration tubing and placed in appropriate radioactive waste container as per IFU. Prior to sheath removal, a run was done at the groin to assess ability to use a vascular closure device. The 5 Afghan [place] sheath was exchanged over a 0.035 inch Bentson wire for a 6 Afghan Angio-Seal closure device which was deployed as per IFU followed by 5 minutes of manual compression. A sterile occlusive dressing was then applied. No immediate complications. The patient tolerated the procedure well. The patient was transferred immediately after termination of procedure to obtain [facility] abdominal imaging in stable condition. Radiation pharmacovigilance safety expert was present for production quality manager and radiation safety monitoring. COMPARISON: MRI abdomen 02/16/2025, Theraspheres mapping 03/16/2025 . FINDINGS: 1. Digital subtraction angiography of the common hepatic artery: Patent right hepatic, middle hepatic, GDA, and right gastric arteries. Delayed arterial enhancement of the right hepatic lobe mass is noted. 2. DSA, CTA, and CTV of segment 8 branch RHA: This branch vessel supplies the anteriormost portion of the right hepatic lobe mass. 3. Theraspheres administration within segment 8 branch of the right hepatic artery supplying the segment 5/6 mass. 4. DSA, CTA, and CTV of segment 6 branch RHA: Dominant arterial supply to the right hepatic lobe mass. 5. Theraspheres administration within segment 6 branch of the right hepatic artery supplying the segment 5/6 mass. COMPLICATIONS: No immediate complication. Procedure Note Kanika Diaz MD - 04/06/2025 CLINICAL INDICATION: 74 y.o. female with PMH of hepatic steatosis, elevated LFTs, and recentlydiscovered right hepatic lobe mass. MR abdomen on 02/16/25 demonstrated asegment V/ 4.5 cm LI-RADS 5 mass. Patient presents for Theraspherestreatment following mapping on 03/16/25. TECHNIQUE: Rehab Care Assistant: Kanika Diaz MD Secondary Patented Hogshead Assembler: Gonzalez Beck M.D. Nurse: Erin Sow Technologist: Eugene Alvarez and Toño Hooks Radiation dose: 2375 mGy Medications: IV conscious sedation with continuous physiologic monitoringprovided by a qualified healthcare professional using Versed 2 mg IV andFentanyl 100 mcg IV. Nitroglycerin 200 mcg intra-arterial administration.1% Lidocaine SQ. Antibiotics: None. Duration of Conscious Sedation: Time out: 0844 hours close out: 1019hours Data points as follows: Dose 1 (segment 8): Previous Dose: None. Lung dose: 2.72 daniels Dose Administered today: 49.37 mci of Y-90 total dose. PreCal ordered: 1.83 GBq x 1 vials Estimated lung mass: 1 kg Dose 2 (segment 6): Previous Dose: 49.37 mCi to segment 8 branch RHA. Lung dose: 2.68 daniels Dose Administered today: 48.11 mci of Y-90 total dose. PreCal ordered: 1.88 GBq x 1 vials Estimated lung mass: 1 kg Treatment Simulation: Performed on 03/16/2025. TC-99m MAA planar scan and SPECT/CT imagesdemonstrated predominant intrahepatic localization with lung shuntfraction of 3%. Correlation with MRI of the liver from 02/16/2025 was made. Correlation with angiographic finding made between initial planningangiography and same dayTC-99m MAA with today's planned angiographic siteof administration. Procedure: Hepatic Intra-arterial Administration of Yttrium-90 spheres forBrachytherapy of segment 5/6 mass. The patient was identified. After the risks and benefits of the procedurewere discussed with the patient, an informed written consent was obtained.The patient was then brought back to the interventional suite and placedsupine on the table. A time out was performed. The patient was thenprepped and draped in the normal sterile fashion. [facility] Theraspheres safetychecklist was followed before, during, and at the end of the procedure. The right common femoral artery was identified in the groin. Aninfrainguinal site of access was marked on fluoroscopy. Ultrasoundguidance was used to evaluate potential access sites. The right commonfemoral artery was identified as adequate in caliber and patency forvascular access. Local anesthetic was administered. Ultrasound guidedaccess to the right common femoral artery was obtained with a 21 gaugeMicropuncture needle. [facility] After standard exchanges, a 0.035 inch Bentson wire was advanced. Accesswas secured using a 5 Fr vascular sheath. A 5 Afghan Cobra catheter wasadvanced over the Bentson wire and formed in the descending aorta. Usingthe 5 Afghan catheter, the Celiac artery was catheterized. The positionwas confirmed with hand contrast injection. The catheter was advanced intothe common hepatic artery over a 0.035 inch Glidewire. Hand contrastinjection again confirmed appropriate positioning. Digital subtractionangiography was performed. Through the Cobra catheter, a 2.4 Afghan Progreat microcatheter inconjunction with the microwire was advanced into the segment 8 branch ofthe right hepatic artery and digital subtraction angiography wasperformed. From this position, CT arterial and venous phase images wereobtained to confirm appropriate catheter positioning and coverage of thesegment 8 portion of the right hepatic lobe mass. Intra-arterialTheraspheres glass spheres administration was performed with themicrocatheter in this location as per IFU by the InterventionalRadiologist Dr. Kanika Diaz. Subsequently, the microcatheter wasremoved along with [facility]'s administration tubing and placed in appropriateradioactive waste container as per IFU. Attention was then turned to the segment 6 branch of the right hepaticartery supplying the segment 5/6 mass. Through the 5 Afghan Cobracatheter, a new 2.4 Afghan Progreat microcatheter in conjunction with themicrowire was advanced into the segment 6 branch of the right hepaticartery and digital subtraction angiography was performed. Mild spasm wasnoted. Therefore, 200 mcg nitroglycerin was instilled via themicrocatheter. From this position, CT arterial and venous phase imageswere obtained to confirm appropriate catheter positioning and coverage ofthe segment 6 portion of the right hepatic lobe mass. Intra-arterialTheraspheres glass spheres administration was performed with themicrocatheter in this location as per IFU by the InterventionalRadiologist Dr. Kanika Diaz. Subsequently, the microcatheter and Cobracatheter were removed in unison along with [facility]'s administration tubing andplaced in appropriate radioactive waste container as per IFU. Prior to sheath removal, a run was done at the groin to assess ability touse a vascular closure device. The 5 Afghan Hineston sheath was exchangedover a 0.035 inch Bentson wire for a 6 Afghan Angio-Seal closure devicewhich was deployed as per IFU followed by 5 minutes of manual compression.A sterile occlusive dressing was then applied. No immediate complications. The patient tolerated the procedure well. Thepatient was transferred immediately [facility]. Radiationsafety officer was present for production quality manager and radiation safetymonitoring. COMPARISON: MRI abdomen 02/16/2025, Theraspheres mapping 03/16/2025 . FINDINGS: 1. Digital subtraction angiography of the common hepatic artery: Patentright hepatic, middle hepatic, GDA, and right gastric arteries. Delayedarterial enhancement of the right hepatic lobe mass is noted. 2. DSA, CTA, and CTV of segment 8 branch RHA: This branch vessel suppliesthe anteriormost portion of the right hepatic lobe mass. 3. Theraspheres administration within segment 8 branch of the righthepatic artery supplying the segment 5/6 mass. 4. DSA, CTA, and CTV of segment 6 branch RHA: Dominant arterial supply tothe right hepatic lobe mass. 5. Theraspheres administration within segment 6 branch of the righthepatic artery supplying the segment 5/6 mass. COMPLICATIONS: No immediate complication. IMPRESSION: Technically successful glass microspheres selective internal radiationtherapy of the segment 8 branch of the right hepatic artery of the liveras described above. Technically successful glass microspheres selective internal radiationtherapy of the segment 6 branch of the right hepatic artery of the liveras described above. PLAN: -Standard postprocedural monitoring while in recovery. -Strict bedrest x2 hours with right leg straight. -Patient will follow-up in outpatient VIR clinic in 2 weeks. CRITICAL RESULT: No. COMMUNICATION: Per this written report. By electronically signing this report, I, the attending physician, attestthat I was present for the entire procedure(s) and agree with the finaledited report. Drafted by Gonzalez eBck MD on 04/02/2025 11:45 AM Final report signed by Kanika Diaz MD on 04/06/2025 7:20 PM us Kanika Diaz MD IMG IR PROCEDURES Final Res ult * Lavender Top (04/02/2025 7:28 AM EDT) Pathologist [facility] Extra Hold for add-ons 04/02/2025 8:13 AM EDT [facility] Comment:Auto resulted. Blood Venous blood specimen / Unknown 04/02/2025 7:28 AM EDT 04/02/2025 7:33 AM EDT us Kanika Diaz MD LAB BLOOD ORDERABLES Final Result [facility] [address] [place] [address] * (ABNORMAL) Comprehensive metabolic panel (04/02/2025 7:28 AM EDT) Pathologist [facility] Glucose, Plasma 107(H) 74 - 99 mg/dL 04/02/2025 8:03 AM EDT [facility] BUN, Plasma 22 8 - 23 mg/dL 04/02/2025 8:03 AM EDT [facility] Creatinine, Plasma 0.98 0.60 - 1.10 mg/dL 04/02/2025 8:03 AM EDT [facility] BUN/Creatinine Ratio 22 04/02/2025 8:03 AM EDT [facility] Sodium, Plasma 135(L) 136 - 145 mmol/L 04/02/2025 8:03 AM EDT [facility] Potassium, Plasma 5.2(H) 3.6 - 4.9 mmol/L 04/02/2025 8:03 AM EDT [facility] Chloride, Plasma 107 97 - 107 mmol/L 04/02/2025 8:03 AM EDT [facility] CO2, Plasma 20(L) 22 - 29 mmol/L 04/02/2025 8:03 AM EDT [facility] Anion Gap 8 6 - 16 mmol/L 04/02/2025 8:03 AM EDT [facility] Total Calcium, Plasma 9.2 8.9 - 10.2 mg/dL 04/02/2025 8:03 AM EDT [facility] Total Protein 6.1(L) 6.3 - 7.9 g/dL 04/02/2025 8:03 AM EDT [facility] Albumin, Plasma 3.2(L) 3.5 - 5.2 g/dL 04/02/2025 8:03 AM EDT [facility] AST, Plasma 55(H) 10 - 35 U/L 04/02/2025 8:03 AM EDT [facility] ALT, Plasma 36(H) 10 - 35 U/L 04/02/2025 8:03 AM EDT [facility] Alkaline Phosphatase, Plasma 115 46 - 142 U/L 04/02/2025 8:03 AM EDT [facility] Total Bilirubin, Plasma 1.3(H) 0.2 - 1.1 mg/dL 04/02/2025 8:03 AM EDT [facility] eGFRcr 60.3 mL/min/1.7 3m*2 04/02/2025 8:03 AM EDT [facility] Comment:Reported eGFRcr in m L/min/1.73m2 is based the CKD-EPI 2020 equation that does not use a race coefficient. Blood Venous blood specimen / Unknown Venipuncture / Unknown 04/02/2025 7:28 AM EDT 04/02/2025 7:32 AM EDT Kanika Diaz MD LAB BLOOD ORDERABLES Final Result [facility] [address] [place] [address] documented in this encounter Visit Diagnoses Diagnosis Liver cell carcinoma Malignant neoplasm of liver, primary documented in this encounter Administered Medications Inactive Administered Medications - up to 3 most recent administrations Medication Order MAR Action Action Date Dose Rate Site fentaNYL (Sublimaze) injection Intravenous, As needed, Starting on Farrah 04/02/25 at 0845, Until Farrah 04/02/25 at 0919, Routine, Intraprocedure Given 04/02/2025 9:19 AM EDT 50 mcg Given 04/02/2025 8:45 AM EDT 50 mcg iohexol (OMNIPaque) 300 MG/ML injection - Pyxis Override Pull 1 dose, Starting on Farrah 04/02/25 at 0730, Until Farrah 04/02/25 at 1031 Given 04/02/2025 10:31 AM EDT 100 mL lidocaine (Xylocaine) 1 % injection Intradermal, As needed, Starting on Farrah 04/02/25 at 0858, Until Farrah 04/02/25 at 0858, Routine, Intraprocedure Given 04/02/2025 8:58 AM EDT 10 mL Rig ht Femoral midazolam (Versed) injection Intravenous, As needed, Starting on Farrah 04/02/25 at 0845, Until Farrah 04/02/25 at 0919, Routine, Intraprocedure Given 04/02/2025 9:19 AM EDT 1 mg Given 04/02/2025 8:45 AM EDT 1 mg nitroglycerin (Tridil) in D5W IV solution 100 mcg/mL As needed, Starting on Farrah 04/02/25 at 0956, Until Farrah 04/02/25 at 0956, Routine, Intraprocedure Given 04/02/2025 9:56 AM EDT 200 mcg Right Femoral yttrium-90 glass miscrospheres (TheraSphere) radio-isotope injection 49.46 millicurie 49.46 millicurie, Intrahepatic, Once, 1 dose, On Farrah 04/02/25 at 1000, Routine, Imaging NM Protocol Orders Given by Other 04/02/2025 10:20 AM EDT 49.46 millicuries yttrium-90 glass miscrospheres (TheraSphere) radio-isotope injection 49.46 millicurie 49.46 millicurie, Intrahepatic, Once, 1 dose, On Farrah 04/02/25 at 1000, Routine, Imaging NM Protocol Orders Given by Other 04/02/2025 9:45 AM EDT 49.37 millicuries documented in this encounter Additional Health Concerns Active Problems Noted Date Diagnosed Date Autogenerated Problem 12/03/2024 Assessment Noted Time PHQ-9 Depression Total Score: 0 12/03/19 11:48 AM EDT A fall risk assessment has been complete d for the patient 03/11/2025 9:24 AM EDT A Body Mass Index follow-up plan has been documented for the patient 04/02/2025 12:29 PM EDT documented as of this encounter Care Teams Mechanical Designer Relationship Specialty Start Date End Date Juaquin Anaya MD [address] [place] [address] PCP - General 01/21/21 Eryn Valente MD [address] [address] Medical Oncologist Hematology and Oncology 11/14/23 documented as of this encounter
--- OUTSIDE RECORDS SUMMARY | 2025-04-02 08:00 | XMS_ITS | Encounter Summary ---
Author Organization [facility] Address [address] [id number] Care Team Providers Care Manager Career Name Role Phone Juaquin Anaya MD Primary Care Provider [phone] Eryn Valente MD Unavailable [phone] Reason for Referral * Imaging (Routine) - Closed Specialty Diagnoses / Procedures Referred By Contac t Referred To Contact Radiology Diagnoses Liver cell carcinoma Procedures NM Supervision Parenteral Radiomicrospheres Therapy Liver Tumor Kanika Diaz MD [address] [place] [address] Phone: tel: fax: Referral ID Status Reason Start Date Expiration Date Visits Re quested Visits Authorized [id number] Closed 03/26/2025 09/25/2026 1 1 Reason for Visit * Imaging (Routine) - Closed Specialty Diagnoses / Procedures Referred By Contac t Referred To Contact Radiology Diagnoses Liver cell carcinoma Procedures NM Supervision Parenteral Radiomicrospheres Therapy Liver Tumor Kanika Diaz MD [address] [place] [address] Phone: tel: fax: Referral ID Status Reason Start Date Expiration Date Visits Re quested Visits Authorized [id number] Closed 03/26/2025 09/25/2026 1 1 Encounter Details Date Type Department Care Team (Latest Contact Info) Description 04/02/2025 8:00 AM EDT - 04/02/2025 9:59 AM EDT Hospital Encounter [facility] Nuclear Medicine [address] [place] [id number] Liver cell carcinoma Discharge Disposition: Home or [...] on file documented as of this encounter Medications at Time of Discharge [...] day. 07/09/2024 documented as of this encounter Plan of Treatment Upcoming Encounters Date Type Department Care Team (Late st Contact Info) Description 06/04/2025 1:00 PM EDT [facility] Visit [facility] [address] [place] [address] Jefferson Barger PA [address] [place] [address] 07/03/2025 12:30 PM EDT Appointment [facility] [address] [place] [address] 07/06/2025 11:00 AM EDT Office Visit [facility] Vascular Interventional Radiology [address] [place] [address] documented as of this encounter Goals Goal Patient Goal Type Associated Problems Recent Progress Patient-Stated? Author Autogenera dajuan Goal Care Plan Autogenerated Problem No Isabell Farrar documented as of this encounter Procedures Procedure Name Priority Date/Time Associated Diagnosis Comments NM SUPERVISION PARENTERAL RADIOMICROSPHERES THERAPY LIVER TUMOR Routine 04/02/2025 10:30 AM EDT Liver cell carcinoma documented in this encounter Results * NM Supervision Parenteral Radiomicrospheres Therapy Liver Tumor (04/02/2025 10:30 AM EDT) Anatomical Region Laterality Modality Nuclear Medicine Impressions 04/02/2025 3:14 PM EDT 49.37 mCi of Y-90 TheraSpheres administered into liver (segment 8). 48.11 mCi of Y-90 TheraSpheres administered into liver (segment 6). Post-therapy imaging planned. CRITICAL RESULT: No. COMMUNICATION: Per this written report. By electronically signing this report, I, the attending physician, attest that I have personally reviewed the images/data for the above examination(s) and agree with the final edited report. Drafted by Leroy Salgado DO on 04/02/2025 2:58 PM Final report signed by Herson Mjeia MD on 04/02/2025 3:14 PM Narrative 04/02/2025 3:14 PM EDT CLINICAL INDICATION: Neoplasm, liver malignant, primary. Patient has been evaluated by Interventional Radiology for suitability of initial Y-90 TheraSphere therapy. Pre-therapy hepatic arterial perfusion scan on 03/16/2025 showed 3% extrahepatic shunting to lungs. excluded by post-menopausal state or hysterectomy. TECHNIQUE: First Administration: 49.46 mCi of Y-90 TheraSpheres deemed appropriate for treatment of hepatic lesion(s). Y-90 TheraSpheres delivered to [facility] as unit dosage, assayed, and taken to Interventional Radiology. Delivery apparatus returned to [facility] and residual activity measured to determine administered activity. Intra-arterial administration of 49.37 mCi of Y-90 TheraSpheres into segment 8 by interventional radiologistKanika MD. Second Administration: 49.46 mCi of Y-90 TheraSpheres deemed appropriate for treatment of hepatic lesion(s). Delivery apparatus returned to [facility] and residual activity measured to determine administered activity. Intra-arterial administration of 48.11 mCi of Y-90 TheraSpheres into segment 6 by interventional radiologistKanika MD. COMPARISON/CORRELATION: Pre-therapy hepatic arterial perfusion scan dated 03/16/2025. Correlation with same-day abdominal angiography. FINDINGS: 49.37 mCi of Y-90 TheraSpheres administered into liver (segment 8). 48.11 mCi of Y-90 TheraSpheres administered into liver (segment 6). Procedure Note Herson Mejia MD - 04/02/2025 CLINICAL INDICATION: Neoplasm, liver malignant, primary. Patient has been evaluated by Interventional Radiology for suitability ofinitial Y-90 TheraSphere therapy. Pre-therapy hepatic arterial perfusionscan on 03/16/2025 showed 3% extrahepatic shunting to lungs. Pregnancyexcluded by post-menopausal state or hysterectomy. TECHNIQUE: First Administration: 49.46 mCi of Y-90 TheraSpheres deemed appropriatefor treatment of hepatic lesion(s). Y-90 TheraSpheres delivered to [facility] as unit dosage, assayed,and taken to Interventional Radiology. Delivery apparatus returned to [facility] and residual activitymeasured to determine administered activity. Intra-arterial administration of 49.37 mCi of Y-90 TheraSpheres intosegment 8 by interventional radiologistKanika MD. Second Administration: 49.46 mCi of Y-90 TheraSpheres deemed appropriatefor treatment of hepatic lesion(s). Delivery apparatus returned to [facility] and residual activitymeasured to determine administered activity. Intra-arterial administration of 48.11 mCi of Y-90 TheraSpheres intosegment 6 by interventional radiologistKanika MD. COMPARISON/CORRELATION: Pre-therapy hepatic arterial perfusion scan dated 03/16/2025. Correlationwith same-day abdominal angiography. FINDINGS: 49.37 mCi of Y-90 TheraSpheres administered into liver (segment 8). 48.11 mCi of Y-90 TheraSpheres administered into liver (segment 6). IMPRESSION: 49.37 mCi of Y-90 TheraSpheres administered into liver (segment 8). 48.11 mCi of Y-90 TheraSpheres administered into liver (segment 6). Post-therapy imaging planned. CRITICAL RESULT: No. COMMUNICATION: Per this written report. By electronically signing this report, I, the attending physician, attestthat I have personally reviewed the images/data for the aboveexamination(s) and agree with the final edited report. Drafted by Leroy Salgado DO on 04/02/2025 2:58 PM Final report signed by Herson Mejia MD on 04/02/2025 3:14 PM Kanika Diaz MD IMG NM PROCEDURES Final Res ult documented in this encounter Visit Diagnoses Diagnosis Liver cell carcinoma Malignant neoplasm of liver, primary documented in this encounter Additional Health Concerns Active Problems Noted Date Diagnosed Date Autogenerated Problem 12/03/2024 Assessment Noted Time PHQ-9 Depression Total Score: 0 12/03/19 25 11:48 AM EDT A fall risk assessment has been complete d for the patient 03/11/2025 9:24 AM EDT A Body Mass Index follow-up plan has been documented for the patient 04/02/2025 12:29 PM EDT documented as of this encounter Care Teams Manager Career Relationship Specialty Start Date End Date Juaquin Anaya MD [address] [place] [address] PCP - General 01/21/21 Eryn Valente MD [address] [place] [address] Medical Oncologist Hematology and Oncology 11/14/23 documented as of this encounter
--- OUTSIDE RECORDS SUMMARY | 2025-04-02 10:00 | XMS_ITS | Encounter Summary ---
Author Organization [facility] Address [address] [id number] Care Team Providers Care Roadway Engineer Name Role Phone Juaquin Anaya MD Primary Care Provider [phone] Eryn Valente MD Unavailable [phone] Reason for Referral * Imaging (Routine) - Authorized Specialty Diagnoses / Procedures Referred By Contac t Referred To Contact Radiology Diagnoses Liver cell carcinoma Procedures NM Liver Spleen Scan w SPECT/CT Kanika Diaz MD [address] [place] [phone] Phone: tel: fax: Referral ID Status Reason Start Date Expiration Date V isits Requested Visits Authorized [id number] Authorized 03/26/2025 09/25/2026 2 2 Reason for Visit * Imaging (Routine) - Authorized Specialty Diagnoses / Procedures Referred By Contac t Referred To Contact Radiology Diagnoses Liver cell carcinoma Procedures NM Liver Spleen Scan w SPECT/CT Kanika Diaz MD [address] [place] [phone] Phone: tel: fax: Referral ID Status Reason Start Date Expiration Date V isits Requested Visits Authorized [id number] Authorized 03/26/2025 09/25/2026 2 2 Encounter Details Date Type Department Care Team (Latest Contact Info) Description 04/02/2025 10:00 AM EDT - 04/02/2025 11:59 PM EDT Hospital Encounter [facility] Nuclear Medicine [address] [place] [phone] Liver cell carcinoma Discharge Disposition: Home or [...] Description 06/04/2025 1:00 PM EDT Office Visit [facility] [address] [place] [address] Jefferson Barger PA [address] [place] [address] 07/03/2025 12:30 PM EDT Appointment Loli DELGADO [address] [place] [address] 07/06/2025 11:00 AM EDT Office Visit [facility] Vascular Interventional Radiology [address] Dwyer [address] [place] [phone] documented as of this encounter Goals Goal Patient Goal Type Associated Problems Recent Progress Patient-Stated? Author Autogenera dajuan Goal Care Plan Autogenerated Problem No Isabell Farrar documented as of this encounter Procedures Procedure Name Priority Date/Time Associated Diagnosis Comments NM LIVER SPLEEN SCAN W SPECT/CT Routine 04/02/2025 11:29 AM EDT Liver cell carcinoma documented in this encounter Results * NM Liver Spleen Scan w SPECT/CT (04/02/2025 11:29 AM EDT) Anatomical Region Laterality Modality Abdomen Nuclear Medicine Impressions 04/02/2025 3:49 PM EDT Predominant intrahepatic localization. No significant extrahepatic localization. Compared to Pre-therapy Perfusion Scan: No significant change in biodistribution. CRITICAL RESULT: No. COMMUNICATION: Per this written report. By electronically signing this report, I, the attending physician, attest that I have personally reviewed the images/data for the above examination(s) and agree with the final edited report. Drafted by Leroy Salgado DO on 04/02/2025 3:07 PM Final report signed by Herson Mejia MD on 04/02/2025 3:49 PM Narrative 04/02/2025 3:49 PM EDT CLINICAL INDICATION: Neoplasm, liver malignant, primary. TECHNIQUE: Initial intra-arterial administration of 49.37 mCi of Y-90 TheraSpheres into the segment 8, and 48.11 mCi of Y-90 TheraSpheres into segment 6 by interventional radiologist, Kanika Diaz MD. Bremsstrahlung images of abdomen were acquired using high-energy collimator with pulse height analyzer set wide open. There were 43 minutes between radiopharmaceutical administration and imaging. SPECT and CT images of liver and upper abdomen were acquired and processed using Siemens Press-sensevo 16 SPECT/CT hybrid technology. Three-dimensional attenuation-corrected SPECT, CT and fused SPECT/CT tomographic images in coronal, sagittal, and transverse planes were created and reviewed interactively to optimize sensitivity, specificity, and anatomic localization. CT: low-dose, [id number], without intravenous contrast; TOTAL DLP (Dose Length Product): 224.78 mGy*cm. For reference to the report, annotated images have not been created and made available in PACS. COMPARISON/CORRELATION: Pre-therapy hepatic arterial perfusion scan dated 03/16/2025. Correlation with same-day abdominal angiography. MRI abdomen 02/16/2025. FINDINGS: Liver: All administered activity localized in right lobe (segments 6 and 8). Chest and Abdomen: No gross lung, stomach, intestine or spleen localization. Incidental CT: Known right liver mass is barely visible and better characterized on comparison MRI. Cirrhotic liver morphology. Splenomegaly. No acute findings. Procedure Note Herson Mejia MD - 04/02/2025 CLINICAL INDICATION: Neoplasm, liver malignant, primary. TECHNIQUE: Initial intra-arterial administration of 49.37 mCi of Y-90 TheraSpheresinto the segment 8, and 48.11 mCi of Y-90 TheraSpheres into segment 6 byinterventional radiologist, Kanika Diaz MD. Bremsstrahlung images of abdomen were acquired using high-energycollimator with pulse height analyzer set wide open. There were 43 minutesbetween radiopharmaceutical administration and imaging. SPECT and CT images of liver and upper abdomen were acquired and processedusing Siemens TradeTools FXa Intevo 16 SPECT/CT hybrid technology.Three-dimensional attenuation-corrected SPECT, CT and fused SPECT/CTtomographic images in coronal, sagittal, and transverse planes werecreated and reviewed interactively to optimize sensitivity, specificity,and anatomic localization. CT: low-dose, [id number]-uviw, withoutintravenous contrast; TOTAL DLP (Dose Length Product): 224.78 mGy*cm. For reference to the report, annotated images have not been created andmade available in PACS. COMPARISON/CORRELATION: Pre-therapy hepatic arterial perfusion scan dated 03/16/2025. Correlationwith same-day abdominal angiography. MRI abdomen 02/16/2025. FINDINGS: Liver: All administered activity localized in right lobe (segments 6 and8). Chest and Abdomen: No gross lung, stomach, intestine or spleenlocalization. Incidental CT: Known right liver mass is barely visible and bettercharacterized on comparison MRI. Cirrhotic liver morphology. Splenomegaly.No acute findings. IMPRESSION: Predominant intrahepatic localization. No significant extrahepatic localization. Compared to Pre-therapy Perfusion Scan: No significant change inbiodistribution. CRITICAL RESULT: No. COMMUNICATION: Per this written report. By electronically signing this report, I, the attending physician, attestthat I have personally reviewed the images/data for the aboveexamination(s) and agree with the final edited report. Drafted by Leroy Salgado DO on 04/02/2025 3:07 PM Final report signed by Herson Mejia MD on 04/02/2025 3:49 PM Kanika Diaz MD IMG NM PROCEDURES [...] documented as of this encounter Care Teams Roadway Engineer Relationship Specialty Start Date End Date Juaquin Anaya MD [address] [place] [address] PCP - General 01/21/21 Eryn Valente MD [address] [facility] [address] [place] [address] Medical Oncologist Hematology and Oncology 11/14/23 documented as of this encounter
--- OUTSIDE RECORDS SUMMARY | 2025-04-06 10:00 | XMS_ITS ---
Author Organization [facility] Address [address] [facility] [address] [place] [address] Care Team Providers Care Roll Slicing Machine Tender Name Role Phone Juaquin Anaya Primary Care Provider Brittany Crespo [phone] Allergies No Known Allergies REASON FOR VISIT Cold/allergies Medications Medication SIG (Take, Route, Frequency, Duration) Notes Start Date End Date Status Nystop 562187 UNIT/GM 1 ko applied topically 3 times a day; Duration: 10 days prn 11/23/2021 Active Carvedilol 3.125 MG 1 tablet with food Orally Twice a day Active Losartan Potassium-HCTZ 100-25 MG TAKE ONE TABLET BY MOUTH ONCE A DAY; Duration: 90 Active Triamcinolone Acetonide 0.1 % 1 application Externally twice a day; Duration: 7 days 03/10/2025 Active FREE STYLE LITE TEST STRIPS DIRECTED BID AND PRN *Please review for potential replacement for e-prescription and drug interaction check* 04/03/2011 Active Spironolactone 25 MG 1 tab(s) orally 2 times a day; Duration: 30 days 07/09/2024 Active Ozempic (0.25 or 0.5 MG/DOSE) 2 MG/3ML INJECT 0.25 MG SUBCUTANEOUSLY ONCE WEEKLY; Duration: 28 Active Triamcinolone Acetonide 0.1 % 1 ko applied topically 3 times a day; Duration: 7 days 05/22/2023 Active Levocetirizine Dihydrochloride 5 MG 1 tablet in the evening Orally Once a day; Duration: 30 days 04/06/2025 Active Escitalopram Oxalate 10 MG 1 tab(s) orally once a day at night; Duration: 90 days Active Cefdinir 300 MG 300 mg Orally 2 times a day; Duration: 7 days 04/06/2025 Active Caltrate 600+D Plus Minerals 600-800 MG-UNIT 1 tab(s) orally 2 times a day Active FreeStyle Lancets DIRECTED BID AND PRN *Please review and pick correct strength-formulat ion from [employer] options. If intended option is not shown, discontinue and re-order from Quick Search* 04/03/2011 Active Vital Signs Temperature 97.5 degrees Fahrenheit 04/06/20 25 Heart Rate 72 /min 04/06/2025 Blood pressure systolic 108 mm Hg 04/06/20 25 Blood pressure diastolic 60 mm Hg 025 Height 63.75 in 04/06/2025 Weight 228.4 lbs 04/06/2025 BMI 39.51 kg/m2 04/06/2025 Encounters Encounter Location Date Provider Diagnosis [facility] [address] [place] [address] 04/06/2025 Brittany Crespo Lower resp. tract infection J22 ; Wheezing R06.2 and Nasal congestion R09.81 Assessments Encounter Date Diagnosis (ICD Code) Assessment Notes Treatment Notes Treatment Clinical Notes Section Notes 04/06/2025 Lower resp. tract infection (ICD-10 - J22) Given her age, sputum production, abnormal lung sounds and multiple risk factors for pneumonia we will start on oral antibiotics as noted. Encourage close follow-up in 1 week, sooner with any progressive symptoms. Also encouraged her to start plain Mucinex, use her albuterol as needed and add levocetirizine once a day. Return precautions reviewed 04/06/2025 Wheezing (ICD-10 - R06.2) 04/06/2025 Nasal congestion (ICD-10 - R09.81) Plan Of Treatment Medication Medication Name Sig Start Date Stop Date Notes Levocetirizine Dihydrochlori de 5 MG 1 tablet in the evening Orally Once a day; Duration: 30 days 04/06/2025 Cefdinir 300 MG 300 mg Orally 2 time s a day; Duration: 7 days 04/06/2025 Next Appt Details Follow Up: 1-2 weeks, Reason : Progress Notes * Malini MADOB: [birth year] (74 yo F)Acc No.[id number]:04/06/2025 Progress Notes Patient: Malini KERNS Provider: ALLEN John :1950 A ge:74 Y S ex:Female Date:04/06/2025 Address:[address] [place], [place] [address], [id number] Pcp:Juaquin Anaya Subjective: * Chief Complaints: * 1 . Cold/allergies. * HPI: g en: 74-year-old female with recently diagnosed hepatocellular cancer presents with complaints of progressive cough, wheezing, chest congestion over the past 1 to 2 weeks. Cough has gotten worse and is productive over the past few days. She can hear herself wheezing and rattling when she lies down at night and this wakes her from sleep. No fevers to her knowledge. Not sure about the quality of what she is coughing up. She is not taking any kind of allergy or cough medication currently. Denies any known exposure to illness other than being in and out of hospital recently. * ROS: C ONSTITUTIONAL: no L oss of appetite. n o F ever. n o W eakness. F atigue yes. D ERMATOLOGY: no R bernie. G ASTROENTEROLOGY: no V omiting. n o D iarrhea. * Medical History: D egenerative Disc Disease s/p surgery with Dr Ceja, Right middle finger tendon rupture, type II diabetes, Hypertension, Dysrhymthia, Osteopenia, noncritical CAD, Chronic thrombocytopenia, evaluated by [facility] [place]Onc [facility], Portal HTN/Fatty liver disease, positive cologuard test in January 2020, Liver cirrhosis, Hepatocellular cancer. * Medications: T aking Carvedilol 3.125 MG Tablet 1 tablet with food Orally Twice a day , Taking FREE STYLE LITE TEST STRIPS DIRECTED BID AND PRN , Notes to Pharmacist: *Please review for potential replacement for e-prescription and drug interaction check*, Taking FreeStyle Lancets DIRECTED BID AND PRN , Notes to Pharmacist: *Please review and pick correct strength-formulation from [employer] options. If intended option is not shown, discontinue and re-order from Quick Search*, Taking Caltrate 600+D Plus Minerals 600-800 MG-UNIT Tablet 1 tab(s) orally 2 times a day , Taking Escitalopram Oxalate 10 MG Tablet 1 tab(s) orally once a day at night , Taking Triamcinolone Acetonide 0.1 % Cream 1 ko applied topically 3 times a day , Taking Spironolactone 25 MG Tablet 1 tab(s) orally 2 times a day , Taking Ozempic (0.25 or 0.5 MG/DOSE) 2 MG/3ML Solution Pen-injector INJECT 0.25 MG SUBCUTANEOUSLY ONCE WEEKLY , Taking Losartan Potassium-HCTZ 100-25 MG Tablet TAKE ONE TABLET BY MOUTH ONCE A DAY , Taking Triamcinolone Acetonide 0.1 % Cream 1 application Externally twice a day , Taking Nystop 449843 UNIT/GM Powder 1 ko applied topically 3 times a day , Notes to Pharmacist: prn, Medication List reviewed and reconciled with the patient * Allergies: N .K.D.A. Objective: * Vitals: N urse: KJ, Pain: 0, Temp: 97.5, RR: 18, HR: 72, BP: 108/60, Ht: 63.75, Wt: 228.4, BMI:39.51. * Examination: E NT/Respiratory: General Appearance : w ell nourished and hydrated, alert.? Ears: a uditory canals normal bilaterally, tympanic membranes normal bilaterally. Nose : m ild congestion. Sinuses : n on tender bilaterally. Oral Cavity n o erythema or exudate seen on pharynx. Neck : n o cervical lymphadenopathy. Heart : R RR, normal S1 S2, no murmurs. Lungs : r honchi in the right upper chest and left lower chest that do not clear with cough, c ongested cough. Abdomen : s oft, NT/ND, BS present. Skin : c lear without rashes. Assessment: * Assessment: 1. L ower resp. tract infection - J22 (Primary) 2 . W heezing - R06.2 ? 3 . N carmen congestion - R09.81 Plan: * Treatment: 2. N carmen congestion Start Levocetirizine Dihydrochloride Tablet, 5 MG, 1 tablet in the evening, Orally, Once a day, 30 days, 30, Refills 1. * Follow Up: 1 -2 weeks * * Sign off status: Completed true * Provider: ALLEN John Date: 04/06/2025 Generated for Rodneyi ng/Fanicki/eTransmitting on: 05/21/2025 03:48 PM EDT History and Physical Notes * Examination Category Sub-Category Detail Notes Category Not es ENT/Respiratory Oral Cavity no erythema or exudate se en on pharynx Sinuses : non tender bilateral ly Ears: auditory canals norm al bilaterally, tympanic membranes normal bilaterally Neck : no cervical lymphade nopathy Heart : RRR, normal S1 S2, n o murmurs Lungs : rhonchi in the right upper chest and left lower chest that do not clear with cough, congested cough Abdomen : soft, NT/ND, BS pres ent General Appearance : well nourished and hydrated, alert Nose : mild congestion Skin : clear without rashes
--- OUTSIDE RECORDS SUMMARY | 2025-04-16 05:00 | XMS_ITS ---
Author Organization [facility] Address [address] [facility] [address] [place] [address] Care Team Providers Care Php Engineer Name Role Phone Juaquin Anaya Primary Care Provider [phone] Brittany Crespo [phone] Allergies No Known Allergies REASON FOR VISIT 1 Week Follow up Medications Medication SIG (Take, Route, Frequency, Duration) Notes Start Date End Date Status Nystop 133961 UNIT/GM 1 ko applied topically 3 times a day; Duration: 10 days prn 11/23/2021 Active Triamcinolone Acetonide 0.1 % 1 application Externally twice a day; Duration: 7 days 03/10/2025 Active Losartan Potassium-HCTZ 100-25 MG TAKE ONE TABLET BY MOUTH ONCE A DAY; Duration: 90 Active Levocetirizine Dihydrochloride 5 MG 1 tablet in the evening Orally Once a day; Duration: 30 days 04/06/2025 Active Cefdinir 300 MG 300 mg Orally 2 times a day; Duration: 7 days 04/06/2025 Active Ozempic (0.25 or 0.5 MG/DOSE) 2 MG/3ML INJECT 0.25 MG SUBCUTANEOUSLY ONCE WEEKLY; Duration: 28 Active Spironolactone 25 MG 1 tab(s) orally 2 times a day; Duration: 30 days 07/09/2024 Active Triamcinolone Acetonide 0.1 % 1 ko applied topically 3 times a day; Duration: 7 days 05/22/2023 Active Escitalopram Oxalate 10 MG 1 tab(s) orally once a day at night; Duration: 90 days Active Caltrate 600+D Plus Minerals 600-800 MG-UNIT 1 tab(s) orally 2 times a day Active FreeStyle Lancets DIRECTED BID AND PRN *Please review and pick correct strength-formulat ion from [employer] options. If intended option is not shown, discontinue and re-order from Quick Search* 04/03/2011 Active FREE STYLE LITE TEST STRIPS DIRECTED BID AND PRN *Please review for potential replacement for e-prescription and drug interaction check* 04/03/2011 Active Carvedilol 3.125 MG 1 tablet with food Orally Twice a day Active Vital Signs Temperature 97.5 degrees Fahrenheit 04/16/20 25 Heart Rate 62 /min 04/16/2025 Blood pressure systolic 114 mm Hg 04/16/20 25 Blood pressure diastolic 64 mm Hg 025 Height 63.75 in 04/16/2025 Weight 227.6 lbs 04/16/2025 BMI 39.37 kg/m2 04/16/2025 Encounters Encounter Location Date Provider Diagnosis [facility] [address] [place] [address] 04/16/2025 Brittany Crespo Lower resp. tract infection J22 ; Wheezing R06.2 and Nasal congestion R09.81 Assessments Encounter Date Diagnosis (ICD Code) Assessment Notes Treatment Notes Treatment Clinical Notes Section Notes 04/16/2025 Lower resp. tract infection (ICD-10 - J22) Lung exam is improved Continue xyzal, albuterol as needed, provided her a spacer to use with her inhaler encouraged to discuss coreg with her hepatology team, consider different beta collin if symptoms progress she needs CXR 04/16/2025 Wheezing (ICD-10 - R06.2) 04/16/2025 Nasal congestion (ICD-10 - R09.81) Plan Of Treatment Next Appt Details Follow Up: as scheduled, Luz Maira son: Progress Notes * Malini MADOB: [birth year] (75 yo F)Acc No.[id number]:04/16/2025 Progress Notes Patient: Malini KERNS Provider: ALLEN John :1950 A ge:75 Y S ex:Female Date:04/16/2025 Address:[place], [id number] Pcp:Juaquin Anaya Subjective: * Chief Complaints: * 1 . 1 Week Follow up. * HPI: g en: 74-year-old female with recently diagnosed hepatocellular cancer presents to [facility] regarding complaints of progressive cough, wheezing, chest congestion over the past couple of weeks. Completing antibiotics and feels much better overall. Cough is occasional, less SOA. Still with some intermittent wheezing. Believes some of her symptoms are allergy related and also notes general malaise and SOA since starting coreg for EV a/w cirrhosis. * ROS: C ONSTITUTIONAL: no L oss of appetite. n o F ever. n o W eakness. F atigue y es. D ERMATOLOGY: no R bernie. G ASTROENTEROLOGY: no V omiting. n o D iarrhea. * Medical History: D egenerative Disc Disease s/p surgery with Dr Ceja, Right middle finger tendon rupture, type II diabetes, Hypertension, Dysrhymthia, Osteopenia, noncritical CAD, Chronic thrombocytopenia, evaluated by [facility] Hem/Onc clinic, Portal HTN/Fatty liver disease, positive cologuard test in January 2020, Liver cirrhosis, Hepatocellular cancer. * Surgical History: B ack surgery , MARIBELL BSO , Cholecystectomy , heart catherization 2013, colonoscopy 05/2020. * Hospitalization/Major Diagno stic Procedure: C hildbirth , Surgeries . * Family History: F ather: , heart issues. M other: , diagnosed with Stroke. P aternal Grand Father: . P aternal Grand Mother: . M aternal Grand Father: . Maternal Grand Mother: . M aternal uncle: , aneurysm. M aternal aunt: , aneurysm. S iblings: alive. C hildren: alive. 1 brother(s) , 1 sister(s) . 1 son(s) , 2 daughter(s) - healthy. . * Social History: S moking A re you a:: nonsmoker. R ecreational drug use: no. Exercise: no. Home smoke detector use: yes. Caffeine: yes, frequency: 2 cups coffee in am. Living Will: Yes. Alcohol: no. Sexually active: yes. Travel outside [place]: no. Occupation: retired from school cafeteria. * Medications: T riri Carvedilol 3.125 MG Tablet 1 tablet with food Orally Twice a day , Taking FREE STYLE LITE TEST STRIPS DIRECTED BID AND PRN , Notes to Pharmacist: *Please review for potential replacement for e-prescription and drug interaction check*, Taking FreeStyle Lancets DIRECTED BID AND PRN , Notes to Pharmacist: *Please review and pick correct strength-formulation from [employer] options. If intended option is not shown, [...] Externally twice a day , Taking Nystop 819946 UNIT/GM Powder 1 ko applied topically 3 times a day , Notes to Pharmacist: prn, Taking Cefdinir 300 MG Capsule 300 mg Orally 2 times a day , Taking Levocetirizine Dihydrochloride 5 MG Tablet 1 tablet in the evening Orally Once a day , Medication List reviewed and reconciled with the patient * Allergies: N .K.D.A. Objective: * Vitals: N urse: KJ, Pain: 0, Temp: 97.5, RR: 18, HR: 62, BP: 114/64, Ht: 63.75, Wt: 227.6, BMI:39.37. * Examination: E NT/Respiratory: General Appearance : w ell nourished and hydrated, alert.? Ears: a uditory canals normal bilaterally, tympanic membranes normal bilaterally. Nose : m ild congestion. Sinuses : n on tender bilaterally. Oral Cavity n o erythema or exudate seen on pharynx. Neck : n o cervical lymphadenopathy. Heart : R RR, normal S1 S2, no murmurs. Lungs : c lear to auscultation bilaterally. Abdomen : s oft, NT/ND, BS present. Skin : c lear without rashes. Assessment: * Assessment: 1. L ower resp. tract infection - J22 (Primary) 2 . W heezing - R06.2 ? 3 . N carmen congestion - R09.81 Plan: * Treatment: * Follow Up: a s scheduled * * Sign off status: Completed true * Provider: ALLEN John Date: 04/16/2025 Generated for Venus brice/Thomas/Kaveh on: 0 05/21/2025 03:48 PM EDT History and Physical Notes * Examination Category Sub-Category Detail Notes Category Not es ENT/Respiratory Oral Cavity no erythema or exudate se en on pharynx Sinuses : non tender bilateral ly Ears: auditory canals norm al bilaterally, tympanic membranes normal bilaterally Neck : no cervical lymphade nopathy Heart : RRR, normal S1 S2, n o murmurs Lungs : clear to auscultatio n bilaterally Abdomen : soft, NT/ND, BS pres ent General Appearance : well nourished and hydrated, alert Nose : mild congestion Skin : clear without rashes
--- OUTSIDE RECORDS SUMMARY | 2025-04-16 14:30 | XMS_ITS | Encounter Summary ---
Author Organization [facility] [address] [facility] [place] [id number] Care Team Providers Care Instructor [employer] Name Role Phone Juaquin Anaya MD Primary Care Provider [phone] Eryn Valente MD Unavailable [phone] Reason for Referral * Imaging (Routine) - Pending Review Specialty Diagnoses / Procedures Referred By Contac t Referred To Contact Radiology Diagnoses Hepatocellular carcinoma Procedures MR Abdomen w and wo IV Contrast Solange Diop APRN, DNP [address] [place] [address] Phone: tel: fax: Referral ID Status Reason Start Date Expiration Date V isits Requested Visits Authorized [id number] Pending Review 04/16/2025 10/16/2026 1 1 Reason for Visit * Consultation (Routine) - Closed Specialty Diagnoses / Procedures Referred By Contact Referred To Contact Interventional Radiology Diagnoses Liver cell carcinoma Kanika Diaz MD [address] [place] [address] Phone: tel:[phone] fax:[phone] [facility] Vascular Interventional Radiology [address] [place] [address] Phone: tel: Referral ID Status Reason Start Date Expiration Date V isits Requested Visits Authorized [id number] Closed Specialty Services Required 04/02/2025 10/02/2026 1 1 Encounter Details Date Type Department Care Team (Latest Contact Info) Description 04/16/2025 2:30 PM EDT Office Visit [facility] Vascular Interventional Radiology [address] [place] [address] Solange Diop APRN, [facility] [address] [place] [address] Abnormal LFTs (Primary Dx); Hepatocellular carcinoma Social History Tobacco Use Types Packs/Day Years Used Date Smoking Tobacco: Never Passive Smoke Exposure: Never Smokeless Tobacco: Never Alcohol Use Standard Drinks/Week Comments Never 0 (1 standard drink = 0.6 oz pur e alcohol) PHQ-2 Answer Date Recorded Patient Health Questionnaire-2 Score 0 12/02/2024 PHQ-9 Answer Date Recorded Patient Health Questionnaire-9 Score 0 12/02/2024 AUDIT-C Answer Date Recorded Q1: How often do you have a drink containing alcohol? Never 04/16/2025 Q2: How many drinks containi ng alcohol do you have on a typical day when you are drinking? Patient does not drink Q3: How often do you have si x or more drinks on one occasion? Never 04/16/2025 Comments No Sex and Gender Information Value Date Recorded Sex Assigned at Not on file Legal Sex Female 6:06 PM EDT Gender Identity Not on file Sexual Orientation Not on file documented as of this encounter Last Filed Vital Signs Vital Sign Reading Time Taken Comments Blood Pressure 118/75 04/16/2025 2:19 PM EDT Pulse 58 04/16/2025 2:19 PM EDT Temperature 36.4 C (97.5 F) 04/16/2025 2:19 PM EDT Respiratory Rate - - Oxygen Saturation 98% 04/16/2025 2:19 PM EDT Inhaled Oxygen Concentration - - Weight 104 kg (228 lb 2.8 oz) 04/16/2025 2:19 PM EDT Height 160 cm (5' 2.99 ) 04/16/2025 2:19 PM EDT Body Mass Index 40.43 04/16/2025 2:19 PM EDT documented in this encounter Functional Status * AUDIT-C Score Answer Date of Assessment Author 0 04/16/2025 2:22 PM EDT Magda Dooley RN * Question Answer Date of Assessment Author Q1: How often do you have a drink containing alcohol? Never 04/16/2025 2:22 PM EDT Magda Dooley R N Q2: How many drinks containing alcohol do you have on a typical day when you are drinking? Patient does not drink 04/16/2025 2:22 PM EDT Magda Dooley RN Q3: How often do you have six or more drinks on one occasion? Never 04/16/2025 2:22 PM EDT Magda Dooley R N documented as of this encounter Miscellaneous Notes * Progress Notes - Solange Diop, VOLUNTEER SERVICES SPECIALIST, DNP - 04/16/2025 2:30 PM EDT Images from the original note were not included. Malini Ma presents today for follow up after y90 of the liver. Subjective History of Present Illness: Malini Ma is a 75 y.o. year old female with CAD, HTN, PAC, Takotsubo Cardiomyopathy, T2DM,Obesity with BMI 38, Pantycopenia, Hepatic Steatosis and Elevated Liver enzymes who presents for follow up after y90 mapping and treatment. She had an MR on 02/16 with cirrhosis, borderline splenomegaly and multiple portosystemic collaterals, segment V/ 4/5 cm LI-RADS 5 (Definite HCC). AFP on 12/02 was 4.5, Tbili was 1.1. She was presented to tumor board on 02/20 with plan for y90, which she underwent on 04/02/25. Lung shunt fraction 3%. Segment 8 treatment: lung dose 2.72 daniels, 49.37 mci of Y-90 total dose Segment 6 treatment: lung dose 2.68 daniels, 48.11 mci of Y-90 total dose She endorses decreased appetite. Denies fever, chills, nausea, vomiting, abdominal pain, jaundice, SOA or chest pain. Allergies: Sulfa drugs Medications: Current Medications[1] Past Surgical History: Surgical History[2] Past Medical History: She has a past medical history of Personal history of other diseases of the circulatory system and Personal history of other endocrine, nutritional and metabolic disease. Past Family History: Herfamily history includes Aneurysm in her mother. Past Social History: She reports that she has never smoked. She has never been exposed to tobacco smoke. She has never used smokeless tobacco. She reports that she does not drink alcohol and does not use drugs. Review of Symptoms: 14 point ROS negative except for above. Objective Physical Exam: Vitals: 04/16/25 1419 BP: 118/75 Pulse: 58 Temp: 36.4 ??C (97.5 ??F) SpO2: 98% Physical Exam Constitutional: Appearance: Normal appearance. She is obese. Eyes: Pupils: Pupils are equal, round, and reactive to light. Cardiovascular: Rate and Rhythm: Regular rhythm. Pulmonary: Effort: Pulmonary effort is normal. Abdominal: Palpations: Abdomen is soft. Skin: General: Skin is warm. Neurological: General: No focal deficit present. Mental Status: She is alert and oriented to person, place, and time. Psychiatric: Mood and Affect: Mood normal. Behavior: Behavior normal. Imaging: IR Therasphere Treatment Narrative: CLINICAL INDICATION: 74 y.o. female with PMH of hepatic steatosis, elevated LFTs, and recently discovered right hepatic lobe mass. MR abdomen on 02/16/25 demonstrated a segment V/ 4.5 cm LI-RADS 5 mass. Patient presents for Theraspheres treatment following mapping on 03/16/25. TECHNIQUE: Lab Coordinator: Kanika Diaz MD Secondary Regional Safety Manager: Gonzalez Beck M.D. Nurse: Erin Sow Technologist: [...] Administration of Yttrium-90 spheres for Brachytherapy of segment5/6 mass. The patient was identified. After the risks and benefits of the procedure were discussed with the patient, an informed written consent was obtained. The patient was then brought back to the interventional suite and placed supine on the table. A time out was performed. The patient was then prepped and draped in the normal sterile fashion. [facility] Theraspheres safety checklist was followed before, during, and [...] a 5 Fr vascular sheath. A 5 [place] Cobra catheter was advanced over the Bentson wire and formed in the descending aorta. Using the 5 [place] catheter, the Celiac artery was catheterized. The position was confirmed with hand contrast injection. The catheter was advanced into the common hepatic artery over a 0.035 inch Glidewire. Hand contrast injection again confirmed appropriate positioning. Digital subtraction angiography was performed. Through the Cobra catheter, a 2.4 [place] Progreat microcatheter in conjunction with the microwire was advanced into the segment 8 branch of the right hepatic artery and digital subtraction angiography was performed. From this position, CT arterial and venous phase images were obtained to confirm appropriate catheter positioning and coverage of the segment 8 portion of the right hepatic lobe mass.Intra-arterial Theraspheres glass spheres administration was performed with the microcatheter in this location as per IFU by the Interventional Radiologist Dr. Kanika Diaz. Subsequently, the microcatheter was removed along with [facility]'s administration tubing and placed in appropriate radioactive waste container as per IFU. Attention was then turned to the segment 6 branch of the right hepatic artery supplying the segment5/6 mass. Through the 5 [place] Cobra catheter, a new 2.4 [place] Progreat microcatheter in conjunction with the microwire was advanced into the segment 6 branch of the right hepatic artery and digitalsubtraction angiography was performed. Mild spasm was noted. [...] use a vascular closure device. The 5 [place] Wheeling sheath was exchanged over a 0.035 inch Bentson wire for a 6 [place] Angio-Seal closure device which was deployed as per IFU followed by 5 minutes of manual compression. A sterile occlusive dressing was then applied. No immediate complications. The patient tolerated the procedure well. The patient was transferred immediately after termination of procedure to obtain Bremsstrahlung abdominal imaging in stable condition. Radiation public safety police was present for quality assurance auditor and radiation safety monitoring. COMPARISON: MRI abdomen [...] segment 5/6 mass. COMPLICATIONS: No immediate complication. Impression: Technically successful glass microspheres selective internal radiation [...] Kanika Diaz MD on 04/06/2025 7:20 PM Labs: Labs in chart were reviewed. 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 Hyperbilirubinemia - MELD 3.0: 17 at 04/17/2025 2:45 PM MELD-Na: 18 at 04/17/2025 2:45 PM Calculated from: Serum Creatinine: 1 mg/dL at 04/16/2025 3:08 PM Serum Sodium: 131 mmol/L at 04/16/2025 3:08 PM Total Bilirubin: 1.9 mg/dL at 04/16/2025 3:08 PM Serum Albumin: 3.3 g/dL at 04/16/2025 3:08 PM INR(ratio): 1.3 at 04/17/2025 2:45 PM Age at listing (hypothetical): 75 years Sex: Female at 04/17/2025 2:45 PM - Followed by GI - Metabolic associations with elevated BMI 38, T2DM (well controlled; Ozempic), HTN (well controlled; Losartan/hydrochlorothiazide) and CAD/HLD (well controlled; no medication). - Fibroscan 12/02/2024: CAP Median 289, E Median 23.8 kPa - CT Chest 02/18/2025: No evidence of metastatic disease in the chest. - MR on 02/16 with cirrhosis, borderline splenomegaly and multiple portosystemic collaterals, and a segment V/ 4/5 cm LI-RADS 5 (Definite HCC). AFP on 12/02 was 4.5, tbilit was 1.1. 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 - HE: Denies - She was presented to tumor board on 02/20 with plan for y90 - Underwent mapping on 03/16/25, lung shunt fraction 3% - Underwent SIR therapy of segment 8 and segment 6 branches of right hepatic artery - Segment 8 treatment: lung dose 2.72 daniels, 49.37 mci of Y-90 total dose - Segment 6 treatment: lung dose 2.68 daniels, 48.11 mci of Y-90 total dose - She endorses decreased appetite - Denies fever, chills, nausea, vomiting, abdominal pain, jaundice, SOA or chest pain - T bili increased to 1.9 and AFP increased from 4.5 in November to 13.7 on 04/16/25 Class 3 obesity: - Body mass index is 40.43 kg/m??. - Complicates multiple aspects of care PLAN: - CMP and AFP ordered, personally reviewed as above - Follow up with GI scheduled for 06/04/25, GI notified of increased bilirubin and AFP and recommendto repeat labs at that visit - Scheduled for repeat MR abdomen on 07/03/25 - Follow up in VIR clinic for imaging review on 07/06/25 - Return to clinic as needed Case discussed with attending physician, Dr. Diaz. Diagnosis Plan 1. Abnormal LFTs Comprehensive metabolic panel Alpha fetoprotein, serum 2. Hepatocellular carcinoma MR Abdomen w and wo IV Contrast I spent 53 minutes on this encounter; including preparing to see the patient, which involved review/interpretation of diagnostics and reports, obtaining and/or reviewing separately obtained history, performing appropriate physical exam, communicating findings, reviewing labs/imaging, counseling/educating the patient, discussing potential complications (bleeding, infection, damage to surrounding structures), documentation in EMR and formulating subsequent treatment plan. This note was generated, at least in part, by Voice Recognition Technology in combination with keyboard input. It has been reviewed by the undersigned; however, may still contain unintended errors. Thank you for allowing me to participate in the care of Malini Ma. Solange Diop APRN, DNP Vascular & Interventional Radiology [1] Current Outpatient Medications: Calcium Carb-Cholecalciferol (Caltrate 600+D3 Soft) 600-20 MG-MCG chewable tablet, in the morning.,Disp: , Rfl: losartan-hydroCHLOROthiazide (Hyzaar) 100-25 MG tablet, Take 1 tablet by mouth Daily., Disp: , Rfl: nutrional drink glucose control (Boost Glucose Control) liquid liquid, Drink 1 supplement up to 3 times a day or As Directed as a nutritional supplement. Flavor preference: per patient. Please dispense up to 4 cases at a time per patient request, Disp: 237 mL, Rfl: 25 Semaglutide,0.25 or 0.5MG/DOS, (Ozempic, 0.25 or 0.5 MG/DOSE,) 2 MG/3ML solution pen-injector, , Disp: , Rfl: spironolactone (Aldactone) 25 MG tablet, Take 1 tablet by mouth twice a day., Disp: , Rfl: carvedilol (Coreg) 3.125 MG tablet, TAKE 1 TABLET BY MOUTH EVERY MORNING AND TAKE 1 TABLET BY MOUTHEVERY EVENING with food (Patient not taking: Reported on 04/16/2025), Disp: 60 tablet, Rfl: 2 [2] Past Surgical History: Procedure Laterality Date GALLBLADDER SURGERY N/A Gallbladder surgery from [facility] HAND SURGERY N/A Hand surgery from [facility] HYSTERECTOMY N/A Hysterectomy from [facility] WISDOM TOOTH EXTRACTION N/A Thurman tooth extraction from [facility] documented in this encounter Plan of Treatment Upcoming Encounters Date Type Department Care Team (Late st Contact Info) Description 06/04/2025 1:00 PM EDT Office Visit [facility] Medicine Specialties [address] [place] [address] Jefferson Barger, PA [address] [place] [address] 07/03/2025 12:30 PM EDT Appointment [facility] [address] [place] [address] 07/06/2025 11:00 AM EDT Office Visit [facility] Vascular Interventional Radiology [address] [place] [address] Scheduled Orders Name Type Priority Associated Diagnoses Orde r Schedule MR Abdomen w and wo IV Contrast Imaging Routine Hepatocellular carcinoma Expected: 04/16/2025 (Approximate), Expires: 10/18/2026 documented as of this encounter Goals Goal Patient Goal Type Associated Problems Recent Progress Patient-Stated? Author Autogenera dajuan Goal Care Plan Autogenerated Problem No Isabell Farrar documented as of this encounter Results * (ABNORMAL) Alpha fetoprotein, serum (04/16/2025 3:08 PM EDT) Alpha Fetoprotein, Serum 13.7(H) <10.0 ng/mL 04/16/2025 4:54 PM EDT [facility] Blood Venous blood specimen / Unknown Venipuncture / Unknown 04/16/2025 3:08 PM EDT 04/16/2025 3:08 PM EDT Narrative [facility] - 04/16/2025 4:54 PM EDT Performed by Jamal electrochemiluminescent immunoassay which is traceable to the 1st AFP IRP WHO Reference standard 72/255. Results obtained with different test methods or kits cannot be used interchangeably. us Alma Bridges VOLUNTEER SERVICES SPECIALIST LAB BLOOD ORDERABLES Final R esult [facility] [address] [place] [address] * (ABNORMAL) Comprehensive metabolic panel (04/16/2025 3:08 PM EDT) Glucose, Plasma 101(H) 74 - 99 mg/dL 04/16/2025 4:46 PM EDT [facility] BUN, Plasma 16 8 - 23 mg/dL 04/16/2025 4:46 PM EDT [facility] Creatinine, Plasma 1.00 0.60 - 1.10 mg/dL 04/16/2025 4:46 PM EDT [facility] BUN/Creatinine Ratio 16 04/16/2025 4:46 PM EDT [facility] Sodium, Plasma 131(L) 136 - 145 mmol/L 04/16/2025 4:46 PM EDT [facility] Potassium, Plasma 5.1(H) 3.6 - 4.9 mmol/L 04/16/2025 4:46 PM EDT [facility] Chloride, Plasma 103 97 - 107 mmol/L 04/16/2025 4:46 PM EDT [facility] CO2, Plasma 22 22 - 29 mmol/L 04/16/2025 4:46 PM EDT [facility] Anion Gap 6 6 - 16 mmol/L 04/16/2025 4:46 PM EDT [facility] Total Calcium, Plasma 9.2 8.9 - 10.2 mg/dL 04/16/2025 4:46 PM EDT [facility] Total Protein 6.6 6.3 - 7.9 g/dL 04/16/2025 4:46 PM EDT [facility] Albumin, Plasma 3.3(L) 3.5 - 5.2 g/dL 04/16/2025 4:46 PM EDT [facility] AST, Plasma 68(H) 10 - 35 U/L 04/16/2025 4:46 PM EDT [facility] ALT, Plasma 44(H) 10 - 35 U/L 04/16/2025 4:46 PM EDT [facility] Alkaline Phosphatase, Plasma 177(H) 46 - 142 U/L 04/16/2025 4:46 PM EDT [facility] Total Bilirubin, Plasma 1.9(H) 0.2 - 1.1 mg/dL 04/16/2025 4:46 PM EDT [facility] eGFRcr 58.5 mL/min/1.7 3m*2 04/16/2025 4:46 PM EDT [facility] Comment:Reported eGFRcr in m L/min/1.73m2 is based the CKD-EPI 2020 equation that does not use a race coefficient. Blood Venous blood specimen / Unknown Venipuncture / Unknown 04/16/2025 3:08 PM EDT 04/16/2025 3:08 PM EDT us Alma Bridges VOLUNTEER SERVICES SPECIALIST LAB BLOOD ORDERABLES Final R esult [facility] [address] [place] [address] documented in this encounter Visit Diagnoses Diagnosis Abnormal LFTs- Primary Hepatocellular carcinoma Malignant neoplasm of liver, primary documented in this encounter Additional Health Concerns Active Problems Noted Date Diagnosed Date Autogenerated Problem 12/03/2024 Assessment Noted Time PHQ-9 Depression Total Score: 0 12/03/19 25 11:48 AM EDT A fall risk assessment has been complete d for the patient 04/16/2025 2:23 PM EDT A Body Mass Index follow-up plan has been documented for the patient 04/21/2025 2:16 PM EDT documented as of this encounter Care Teams Instructor Bus [employer] Relationship Specialty Start Date End Date Juaquin Anaya MD [address] [place] [address] PCP - General 01/21/21 Eryn Valente MD [address] [address] Medical Oncologist Hematology and Oncology 11/14/23 documented as of this encounter
--- OUTSIDE RECORDS SUMMARY | 2025-05-14 05:00 | XMS_ITS ---
Author Organization [facility] Address [address] [place] [address] Care Team Providers Care Electric Powerline Examiner Name Role Phone Juaquin Anaya Primary Care Provider Cherie Brittany Unavailable [phone] Allergies No Known Allergies Results Component Value Reference Range Notes Microalbumin (In-House) Reviewed date:05/14/2025 01:52:02 PM Interpretation:Normal Performing Lab: Notes/Report: Normal ALB 10 mg CRE 100 mg A:C < 30 mg/g LIPID PANEL, STANDARD (7600) Reviewed date:05/18/2025 11:20:44 AM Interpretation: Performing Lab:CB, [facility] [id number] [facility], [place] [id number] Dominic Ruth Notes/Report: NON-FASTING; NON-FASTING FASTING:YES FASTING: YES CHOLESTEROL, TOTAL 120 <200 mg/dL HDL CHOLESTEROL 42 > OR = 50 mg/dL TRIGLYCERIDES 45 <150 mg/dL LDL-CHOLESTEROL 65 Reference range: <100 Desirable range <100 mg/dL for primary prevention; <70 mg/dL for patients with CHD or diabetic patients with > or = 2 CHD risk factors. LDL-C is now calculated using the Harleen calculation, which is a validated novel method providing better accuracy than the Friedewald equation in the estimation of LDL-C. Ari ROJAS et al. RIDDHI. 2013;310(19): 5152-9194 (http://education.Carsabi.com/faq/VWF865) CHOL/HDLC RATIO 2.9 <5.0 (calc) NON HDL CHOLESTEROL 78 <130 mg/dL (calc) For patients with diabetes plus 1 major ASCVD risk factor, treating to a non-HDL-C goal of <100 mg/dL (LDL-C of <70 mg/dL) is considered a therapeutic option. HEMOGLOBIN A1c (496) Reviewed date:05/18/2025 11:20:44 AM Interpretation: Performing Lab:CB, [facility], [facility] ServicesSndrMP[address] Dominic Ruth Notes/Report: NON-FASTING; NON-FASTING FASTING:YES FASTING: YES HEMOGLOBIN A1c 5.2 <5.7 % For the purpose of screening for the presence of diabetes: <5.7% Consistent with the absence of diabetes 5.7-6.4% Consistent with increased risk for diabetes (prediabetes) > or =6.5% Consistent with diabetes This assay result is consistent with a decreased risk of diabetes. Currently, no consensus exists regarding use of hemoglobin A1c for diagnosis of diabetes in children. According to [place] Diabetes Association (ADA) guidelines, hemoglobin A1c <7.0% represents optimal control in non- diabetic patients. Different metrics may apply to specific patient populations. Standards of Medical Care in Diabetes(ADA). REASON FOR VISIT Annual Wellness-fasting Medications Medication SIG (Take, Route, Frequency, Duration) Notes Start Date End Date Status Nystop 444186 UNIT/GM 1 raquel applied topi akosua 3 times a day; Duration: 10 days prn 11/23/2021 Active Levocetirizine Dihydrochloride 5 MG 1 tablet in the evening Orally Once a day; Duration: 30 days 04/06/2025 Active Spironolactone 25 mg TAKE 1 TABLET BY [facility] TWICE DAILY; Duration: 30 Active Ozempic (0.25 or 0.5 MG/DOSE) 2 MG/3ML INJECT 0.25 MG SUBCUTANEOUSLY ONCE WEEKLY; Duration: 28 Active Losartan Potassium-HCTZ 100-25 MG TAKE ONE TABLET BY MOUTH ONCE A DAY; Duration: 90 Active Triamcinolone Acetonide 0.1 % 1 application Externally twice a day; Duration: 7 days 03/10/2025 Active Caltrate 600+D Plus Minerals 600-800 MG-UNIT 1 tab(s) orally 2 times a day Active Escitalopram Oxalate 10 MG 1 tab(s) oral ly once a day at night; Duration: 90 days Active Triamcinolone Acetonide 0.1 % 1 raquel applied topically 3 times a day; Duration: 7 days 05/22/2023 Active Carvedilol 3.125 MG 1 tablet with food O rally Twice a day Active FREE STYLE LITE TEST STRIPS DIRECTED BID AND PRN 04/03/2011 Active FreeStyle Lancets DIRECTED BID AND PRN 04/03/20 11 Active Immunizations Vaccine Route Administration Date Status Comme nts Arexvy IM Intramuscular 05/14/2025 Administered Vital Signs Temperature 97.2 degrees Fahrenheit 05/14/20 25 Heart Rate 74 /min 05/14/2025 Blood pressure systolic 106 mm Hg 05/14/20 25 Blood pressure diastolic 58 mm Hg 025 Height 63.75 in 05/14/2025 Weight 224.8 lbs 05/14/2025 BMI 38.89 kg/m2 05/14/2025 Encounters Encounter Location Date Provider Diagnosis [facility] [address] [place] [address] 05/14/2025 Brittany Crespo Visit for screening mammogram Z12.31 ; Medicare annual wellness visit, subsequent Z00.00 ; Type 2 diabetes mellitus with other specified complication E11.69 ; Encounter for immunization Z23 ; Cirrhosis of liver without ascites, unspecified hepatic cirrhosis type K74.60 ; HCC (hepatocellular carcinoma) C22.0 ; Essential hypertension I10 ; Thrombocytopenia D69.6 ; Anxiety F41.9 ; BMI 38.0-38.9,adult Z68.38 and Mixed hyperlipidemia E78.2 Assessments Encounter Date Diagnosis (ICD Code) Assessment Notes Treatment Notes Treatment Clinical Notes Section Notes 05/14/2025 Visit for screening mammogram (ICD-10 - Z12.31) 05/14/2025 Medicare annual wellness visit, subsequent (ICD-10 - Z00.00) wellness is UTD with exception of updating mammogram. Declines DEXA repeat 05/14/2025 Type 2 diabetes mellitus with other specified complication (ICD-10 - E11.69) well controlled, labs as noted 05/14/2025 Encounter for immunization (ICD-10 - Z23) 05/14/2025 Cirrhosis of liver without ascites, unspecified hepatic cirrhosis type (ICD-10 - K74.60) continue FU with , notes reviewed with patient 05/14/2025 HCC (hepatocellular carcinoma) (ICD-10 - C22.0) s/p treatment and following with [facility] 05/14/2025 Essential hypertension (ICD-10 - I10) Well-controll ed on current regimen 05/14/2025 Thrombocytopenia (ICD-10 - D69.6) stable, due to cirrhosis 05/14/2025 Anxiety (ICD-10 - F41.9) continue lexapro 05/14/2025 BMI 38.0-38.9,adult (ICD-10 - Z68.38) weight is down overall, continue efforts 05/14/2025 Mixed hyperlipidemia (ICD-10 - E78.2) Statin therapy held secondary to liver disease, cardiology has reviewed this as well Plan Of Treatment Treatment Notes Assessment Notes Essential hypertension Well-controlled o n current regimen Pending Test Test Name Order Date Mammogram: Screening 05/14/2025 Next Appt Details Follow Up: 6 Months, Reason: Progress Notes * Malini MADOB: [birth year] (75 yo F)Acc No.[id number]:05/14/2025 Progress Notes Patient: Cher TomasMÓNICA Malini Provider: ALLEN John :1950 A ge:75 Y S ex:Female Date:05/14/2025 Address:[address] [place], [place] [address] , [id number] Pcp:Juaquin Anaya Subjective: * Chief Complaints: * 1 . Annual Wellness-fasting. * HPI: g en: 75 year old female presents today for routine 6 month FU regarding DM, fatty liver disease, HTN. Since her last AWV has been diagnosed with HCC likely secondary to liver cirrhosis and is following with . S/P Y90 procedure and has FU labs tomorrow, imaging in about 6-8 weeks Has annual FU with cardiology. No CP, SOA, palpitations. Follows with podiatry in [place], no recent foot or ankle issues. Still with some dermatitis intermittently, triamcinolone PRN. Foot pain is better overall. She has had some issues recently with recurring respiratory symptoms, wheezing, cough, shortness of breath. These are all significantly better since starting levocetirizine routinely. She continues to feel like carvedilol has caused some of her issues with swelling, shortness of breath, fatigue and plans to discuss this with her hepatology team. * ROS: F UNCTIONAL STATUS: ADLS I ndependent for all ADL/IADL. R ESPIRATORY: See HPI Y es. S hortness of breath y es. n o?Chest pain. C ARDIOLOGY: Positive for a nnual cardiology visit at [facility]. ? C ONSTITUTIONAL: Weight gain y es. n o F ever. n o W eakness. F atigue yes. D ERMATOLOGY: Reviewed, No Symptoms Reported: Y es. E NDOCRINOLOGY: See HPI Y es. D iabetes yes. G ASTROENTEROLOGY: Reviewed, No Symptoms Reported: Y es. H EMATOLOGY/LYMPH: See HPI Y es. M USCULOSKELETAL: back pain y es. P SYCHOLOGY: no D epression. H igh stress level yes. A nxiety y es, w ell controlled on lexapro. U ROLOGY: no D ifficulty urinating. n o F requent urination.?no U rinary incontinence. * Medical History: D egenerative Disc Disease s/p surgery with Dr Ceja, Right middle finger tendon rupture, type II diabetes, Hypertension, Dysrhymthia, Osteopenia, noncritical CAD, Chronic thrombocytopenia, evaluated by [facility]On[facility], Portal HTN/Fatty liver disease, positive cologuard test in January 2020, Liver cirrhosis, Hepatocellular cancer. * Surgical History: B ack surgery , MARIBELL BSO , Cholecystectomy , heart catherization 2013, colonoscopy 05/2020, Y90 03/2025. * Hospitalization/Major Diagno stic Procedure: Yanet mccann , Surgeries . * Family History: F ather: , heart issues. M other: , diagnosed with Stroke. P aternal Grand Father: . P aternal Grand Mother: . M aternal Grand Father: . Maternal Grand Mother: . M aternal uncle: , aneurysm. M aternal aunt: , aneurysm. S iblings: alive. C veronique: alive. 1 brother(s) , 1 sister(s) . 1 son(s) , 2 daughter(s) - healthy. . * Social History: S moking A re you a:: nonsmoker. R ecreational drug use: no. Exercise: no. Home smoke detector use: yes. Caffeine: yes, frequency: 2 cups coffee in am. Living Will: Yes. Alcohol: no. Sexually active: yes. Travel outside [place]: no. Occupation: retired from [employer]. * Medications: T aking Carvedilol 3.125 MG Tablet 1 tablet with food Orally Twice a day , Taking FREE STYLE LITE TEST STRIPS DIRECTED BID AND PRN , Taking FreeStyle Lancets DIRECTED BID AND PRN , Taking Caltrate 600+D Plus Minerals 600-800 MG-UNIT Tablet 1 tab(s) orally 2 times a day , Taking Escitalopram Oxalate 10 MG Tablet 1 tab(s) orally once a day at night , Taking Triamcinolone Acetonide 0.1 % Cream 1 raquel applied topically 3 times a day , Taking Losartan Potassium-HCTZ 100-25 MG Tablet TAKE ONE TABLET BY MOUTH ONCE A DAY , Taking Triamcinolone Acetonide 0.1 % Cream 1 application Externally twice a day , Taking Nystop 344125 UNIT/GM Powder 1 raquel applied topically 3 times a day , Notes to Pharmacist: prn, Taking Levocetirizine Dihydrochloride 5 MG Tablet 1 tablet in the evening Orally Once a day , Taking Spironolactone 25 mg Tablet TAKE 1 TABLET BY MOUTH TWICE DAILY , Taking Ozempic (0.25 or 0.5 MG/DOSE) 2 MG/3ML Solution Pen-injector INJECT 0.25 MG SUBCUTANEOUSLY ONCE WEEKLY , Discontinued Cefdinir 300 MG Capsule 300 mg Orally 2 times a day , Medication List reviewed and reconciled with the patient * Allergies: N .K.D.A. Objective: * Vitals: N urse: jl, Pain: 0, Temp: 97.2, RR: 18, HR: 74, BP: 106/58, Ht: 63.75, Wt: 224.8, BMI:38.89. * Examination: G eneral Examination: General P leasant and Cooperative, NAD on RA,. Chest: n ormal shape and expansion. Heart: R egular Rate and Rhythm, no murmur, rubs or gallops. Lungs: L CTAB, No wheezes, crackles or rhonchi, Good air movement,. Neurologic Exam: Alert and oriented x 3. Peripheral pulses: n ormal (2+) bilaterally. Extremities: n o clubbing, trace BLE edema, no acute foot lesions. neck S upple without lymphadenopathy. Psych Normal Mood/Affect. Assessment: * Assessment: 1. M edicare annual wellness visit, subsequent - Z00.00 (Primary) 2 . V isit for screening mammogram - Z12.31 3 . T ype 2 diabetes mellitus with other specified complication - E11.69 4 . E ncounter for immunization - Z23 5. C irrhosis of liver without ascites, unspecified hepatic cirrhosis type - K74.60 ? 6 . H CC (hepatocellular carcinoma) - C22.0 7 . E ssential hypertension - I10 8 . T hrombocytopenia - D69.6 9 . A nxiety - F41.9 10. B WI 38.0-38.9,adult - Z68.38 1 1. M ixed hyperlipidemia - E78.2 Plan: * Treatment: 2. V isit for screening mammogram I maging: Mammogram: Screening 3.?Type 2 diabetes mellitus with other specified complication?LAB: LIPID PANEL, STANDARD (7600) (Collection Date & Time - 05/14/2025 09:50 AM)* Value Reference Range T RIGLYCERIDES 45 <150 - mg/dL * C HOLESTEROL, TOTAL 120 <200 - mg/dL * H DL CHOLESTEROL 42 L > OR = 50 - mg/dL * L DL-CHOLESTEROL 65 - mg/dL (calc) * C HOL/HDLC RATIO 2.9 <5.0 - (calc) * N ON HDL CHOLESTEROL 78 <130 - mg/dL (calc) * Ana Cottrell 05/18/2025 11:19:33 AM EDT > Patient informedThis lab was reviewed by Ana Cottrell on 05/18/2025 at 11:20 AM EDT ?LAB: HEMOGLOBIN A1c (496) (Collection Date & Time - 05/14/2025 09:50 AM)* Value Reference Range H EMOGLOBIN A1c 5.2 <5.7 - % * Ana Cottrell 05/18/2025 11:19:33 AM EDT > Patient informedThis lab was reviewed by Ana Cottrell on 05/18/2025 at 11:20 AM EDT ?LAB: Microalbumin (In-House) (Collection Date & Time - 05/14/2025)?Normal* Value Reference Range A LB 10 mg * C RE 100 mg * A :C < 30 mg/g Clinical Notes: well controlled, labs as noted??4.?Cirrhosis of liver without ascites, unspecified hepatic cirrhosis type? Clinical Notes: continue FU with [facility], notes reviewed with patient??5.?HCC (hepatocellular carcinoma)? Clinical Notes: s/p treatment and following with [facility]??6.?Essential hypertension? Notes: Well-controlled on current regimen??7.?Thrombocytopenia? Clinical Notes: stable, due to cirrhosis??8.?Anxiety? Clinical Notes: continue lexapro??9.?BMI 38.0-38.9,adult? Clinical Notes: weight is down overall, continue efforts??10.?Mixed hyperlipidemia? Clinical Notes: Statin therapy held secondary to liver disease, cardiology has reviewed this as well?? * Immunizations: Arexvy : 0.5 mL (Dose No:1) (Route: Intramuscular) given by CLIFTON Broussard on Right Deltoid * Procedure Codes: 8 2044 MICROALBUMIN, URINE, Modifiers: QW , 96713 Arexvy, 70144 ADMINISTRATION IMMUNIZATION ONE VACCINE, G0439 ANNUAL WELLNESS VST; PPS SUBSQT VST, 42202 HEALTH RISK [id number], 1123F ADVANCED DIRECTIVE - HAS A LIVING WILL, G8417 BMI >=30 CALCUATE W/FOLLOWUP, G8510 NEGATIVE SCREENING F/U NOT REQUIRED, G9903 Pt scrn tbco id as non user, G8752 Most recent systolic blood pressure < 140mmhg, G8754 Most recent diastolic blood pressure < 90mmhg, G9744 PATIENT NOT ELIG D/T ACTIVE DX HTN * Preventive Medicine: Counseling: L iving will H as living will. C are goal follow up plan B WI management provided Y es, E xercise Counseling Provided- Y es, Saniya medina Normal BMI Follow-up G iving encouragement to exercise. RAQUEL Screening: F alls: Future screening for fall risks H ave you had two or more falls in the past year? N o, H ave you had any falls with injury in the past year? N o. Depression Screening: P HQ 2 F eeling down depressed or hopeless N o. Immunizations: i nfluenza H ave you had a flu shot since the most recent May 11 ? Y es. P neumonia vaccine: Status for Older Adults A re you up-to-date on your pneumonia vaccine? yes or no B oth Prevnar and Pneumovax. H epatitis A C ompleted series.?Shingrix U TD. C OVID C ompleted series. R SV vaccination C ompleted today.? Screening / Special Tests: M ammogram a nnually. P ap Smear o justo age 64 years, s/p hysterectomy for noncancerous reasons. C olonoscopy 2 023, repeat 5 years. B one mineral Density 2 016 Osteopenia, needs update, will consider. L roscoe Cancer Screening Not indicated - nonsmoker. * Follow Up: 6 Months * * Sign off status: Completed true * Provider: ALLEN John Date: 0 05/14/2025 Generated for Venus brice/Thomas/Teresaitting on: 05/21/2025 03:48 PM EDT History and Physical Notes * Examination Category Sub-Category Detail Notes Category Not es General Examination Heart: Regular Rate and Rhythm, no murmur, rubs or gallops Lungs: LCTAB, No wheezes, c rackles or rhonchi, Good air movement, Extremities: no clubbing, trace B LE edema, no acute foot lesions Neurologic Exam: Alert and oriented x 3 Peripheral pulses: normal (2+) bilatera lly Chest: normal shape and exp ansion neck Supple without lymph adenopathy General Pleasant and Coopera tive, NAD on RA, Psych Normal Mood/Affect
--- NOTE | 2025-05-21 15:48 | MM_ITS ---
PROCEDURE INFORMATION: Exam: MG Bilateral Screening 3D Mammography Exam date and time: 05/21/2025 3:49 PM Age: 75 years old Clinical indication: Screening examination TECHNIQUE: Imaging protocol: Bilateral Screening tomosynthesis and 2D mammography including computer-aided detection (CAD) when performed. COMPARISON: 1. MG MM DIG SCREENING MAMM BI W/CAD 09/05/2021 10:34 AM 2. MG MM DIG SCREENING MAMM BI W/CAD 08/30/2020 10:04 AM FINDINGS: MAMMOGRAPHY: Breast composition: The breasts are almost entirely fatty. Mass: None. Architectural distortion: None. Calcifications: No suspicious calcifications. Asymmetric density: None. Skin thickening: None. Axillary adenopathy: None. IMPRESSION: No mammographic evidence of malignancy. Annual screening is recommended unless otherwise clinically indicated. ASSESSMENT: BI-RADS Category 1: Negative.
--- OUTSIDE RECORDS SUMMARY | 2025-05-21 15:48 | XMS_ITS | Encounter Summary ---
Author Organization [facility] Address [address] [place] [address] Care Team Providers Care Operations Accountant Name Role Phone Juaquin Anaya MD Primary Care Provider [phone] Eryn Valente MD Unavailable [phone] Encounter Details Date Type Department Care Team (Latest Contact Info) Description 04/17/2025 Travel Social History Tobacco Use Types Packs/Day Years [...] on file documented as of this encounter Plan of Treatment Upcoming Encounters Date Type Department Care Team (Late st Contact Info) Description 06/04/2025 1:00 PM EDT Office Visit [facility] [address] [place] [address] Jefferson Barger, PA [address] [place] [address] 07/03/2025 12:30 PM EDT Appointment Loli DELGAOD [address] [place] [id number] 07/06/2025 11:00 AM EDT Office Visit [facility] Vascular Interventional Radiology [address] [place] [id number] documented as of this encounter Goals Goal Patient Goal Type Associated Problems Recent Progress Patient-Stated? Author Autogenera dajuan Goal Care Plan Autogenerated Problem No Isabell Farrar documented as of this encounter Visit Diagnoses Not on filedocumented in this encounter Additional Health Concerns Active [...] documented as of this encounter Care Teams Operations Accountant Relationship Specialty Start Date End Date Juaquin Anaya MD [facility] [address] [place] [address] PCP - General 01/21/21 Eryn Valente MD [address] [place] [address] Medical Oncologist Hematology and Oncology 11/14/23 documented as of this encounter
--- OUTSIDE RECORDS SUMMARY | 2025-05-21 15:48 | XMS_ITS | Encounter Summary ---
Author Organization Healthcare Address [address] [place] [address] Care Team Providers Care Store Receiver Name Role Phone Juaquin Anaya MD Primary Care Provider [phone] Eryn Valente MD Unavailable [phone] Encounter Details Date Type Department Care Team (Late st Contact Info) Description 04/17/2025 Orders Only [facility] Medicine Specialties [address] [place] [address] Jefferson Barger, PA [address] [place] [address] Other cirrhosis of liver (CMS/HCC) (Primary Dx); Other fatigue; Dyspnea, unspecified type Social History Tobacco Use Types Packs/Day Years [...] Description 06/04/2025 1:00 PM EDT Office Visit [facility] Medicine Specialties [address] [place] [address] Jefferson Barger PA [address] [place] [address] 07/03/2025 12:30 PM EDT Appointment [facility] [address] [place] [address] 07/06/2025 11:00 AM EDT Office Visit [facility] Vascular Interventional Radiology [address] [facility] [address] [place] [address] documented as of this encounter Goals Goal Patient Goal Type Associated Problems Recent Progress Patient-Stated? Author Autogenera dajuan Goal Care Plan Autogenerated Problem No Isabell Farrar documented as of this encounter Results * (ABNORMAL) Ferritin (04/17/2025 2:45 PM EDT) Ferritin, Serum 548(H) 13 - 150 ng/mL 04/17/2025 4:43 PM EDT [facility] Blood Venous blood specimen / Unknown Venipuncture / Unknown 04/17/2025 2:45 PM EDT 04/17/2025 2:45 PM EDT us Jefferson ANNE LAB BLOOD ORDERABLES Final Res ult [facility] [address] [place] [address] * (ABNORMAL) Iron & Total Iron Binding Capacity, Plasma (Includes Transferrin) (04/17/2025 2:45 PM EDT) Iron, Plasma 152 30 - 160 ug/dL 04/17/2025 4:12 PM EDT [facility] Transferrin, Plasma 175(L) 200 - 360 mg/dL 04/17/2025 4:12 PM EDT [facility] Total Iron Binding Capacity, Plasma 219(L) 240 - 450 ug/mL 04/17/2025 4:12 PM EDT [facility] Transferrin Saturation 69(H) 14 - 50 % 04/17/2025 4:12 PM EDT [facility] Blood Venous blood specimen / Unknown Venipuncture / Unknown 04/17/2025 2:45 PM EDT 04/17/2025 2:45 PM EDT Jefferson ANNE LAB BLOOD ORDERABLES Final Res ult Performing Organization Address [facility] Co de Phone Number [facility] [address] [place] [address] * (ABNORMAL) Protime-INR (04/17/2025 2:45 PM EDT) Prothrombin Time 16.4(H) 12.0 - 14.3 sec LAB COAGULATION METHOD 04/17/2025 4:40 PM EDT [facility] INR 1.3(H) 0.9 - 1.1 LAB COAGULATION METHOD 04/17/2025 4:40 PM EDT [facility] Blood Venous blood specimen / Unknown Venipuncture / Unknown 04/17/2025 2:45 PM EDT 04/17/2025 2:45 PM EDT Narrative [facility] - 04/17/2025 4:40 PM EDT OPTIMAL INR RANGES FOR PATIENT ON ORAL ANTICOAGULANT THERAPY Prevention of venous thromboembolism INR 2.0 to 3.0 In patients with heart disease: Atrial fibrillation INR 2.0 to 3.0 Valvular heart disease INR 2.0 to 3.0 Tissue heart valves INR 2.0 to 3.0 Mechanical prosthetic valves INR 2.5 to 3.5 Prevention of recurrent GA INR 2.5 to 3.5 us Jefferson ANNE LAB BLOOD ORDERABLES Final Res ult Performing Organization Address [facility]/ZIP Co de Phone Number [facility] [address] [place] [address] * (ABNORMAL) CBC and differential (04/17/2025 2:45 PM EDT) WBC Count 4.93 3.70 - 10.30 10*3/uL LAB HEMATOLOGY METHOD 04/17/2025 4:42 PM EDT [facility] RBC Count 2.73(L) 3.90 - 5.20 10*6/uL LAB HEMATOLOGY METHOD 04/17/2025 4:42 PM EDT [facility] HGB 10.2(L) 11.2 - 15.7 g/dL LAB HEMATOLOGY METHOD 04/17/2025 4:42 PM EDT [facility] HCT 29.1(L) 34.0 - 45.0 % LAB HEMATOLOGY METHOD 04/17/2025 4:42 PM EDT [facility] Platelet Count 73(L) 155 - 369 10*3/uL LAB HEMATOLOGY METHOD 04/17/2025 4:42 PM EDT [facility] MCV 107(H) 79 - 98 fL LAB HEMATOLOGY METHOD 04/17/2025 4:42 PM EDT [facility] MCH 37.4(H) 26.0 - 32.0 pg LAB HEMATOLOGY METHOD 04/17/2025 4:42 PM EDT [facility] MCHC 35.1 30.7 - 35.5 g/dL LAB HEMATOLOGY METHOD 04/17/2025 4:42 PM EDT [facility] RDW 13.5 11.5 - 14.5 % LAB HEMATOLOGY METHOD 04/17/2025 4:42 PM EDT [facility] MPV 10.3 8.8 - 12.5 fL LAB HEMATOLOGY METHOD 04/17/2025 4:42 PM EDT [facility] nRBC 0.0 <=0.0 per 100 WBCs LAB HEMATOLOGY METHOD 04/17/2025 4:42 PM EDT [facility] Differential Type Automated LAB HEMATOLOGY METHOD 04/17/2025 4:42 PM EDT [facility] Neutrophils % 62 % LAB HEMATOLOGY METHOD 04/17/2025 4:42 PM EDT [facility] Lymphocytes % 6 % LAB HEMATOLOGY METHOD 04/17/2025 4:42 PM EDT [facility] Monocytes % 19 % LAB HEMATOLOGY METHOD 04/17/2025 4:42 PM EDT [facility] Eosinophils % 10 % LAB HEMATOLOGY METHOD 04/17/2025 4:42 PM EDT [facility] Basophils % 1 % LAB HEMATOLOGY METHOD 04/17/2025 4:42 PM EDT [facility] Immature Granulocytes % 2 % LAB HEMATOLOGY METHOD 04/17/2025 4:42 PM EDT [facility] Neutrophils Absolute 3.06 1.60 - 6.10 10*3/uL LAB HEMATOLOGY METHOD 04/17/2025 4:42 PM EDT [facility] Lymphocytes Absolute 0.30(L) 1.20 - 3.90 10*3/uL LAB HEMATOLOGY METHOD 04/17/2025 4:42 PM EDT [facility] Monocytes Absolute 0.93(H) 0.30 - 0.90 10*3/uL LAB HEMATOLOGY METHOD 04/17/2025 4:42 PM EDT [facility] Eosinophils Absolute 0.51(H) 0.00 - 0.50 10*3/uL LAB HEMATOLOGY METHOD 04/17/2025 4:42 PM EDT [facility] Basophils Absolute 0.05 0.00 - 0.10 10*3/uL LAB HEMATOLOGY METHOD 04/17/2025 4:42 PM EDT [facility] Immature Granulocytes Absolute 0.08(H) 0.00 - 0.06 10*3/uL LAB HEMATOLOGY METHOD 04/17/2025 4:42 PM EDT [facility] Blood Venous blood specimen / Unknown Venipuncture / Unknown 04/17/2025 2:45 PM EDT 04/17/2025 2:45 PM EDT Narrative [facility] - 04/17/2025 4:42 PM EDT Therapeutic decision making should be based on absolute values, rather than percentages. us Jefferson ANNE LAB BLOOD ORDERABLES Final Res ult [facility] [address] [place] [address] documented in this encounter Visit Diagnoses Diagnosis Other cirrhosis of liver (CMS/HCC)- Primary Other fatigue Dyspnea, unspecified type documented in this encounter Additional Health Concerns [...] documented as of this encounter Care Teams Store Receiver Relationship Specialty Start Date End Date Juaquin Anaya MD [address] [place] [address] PCP - General 01/21/21 Eryn Valente MD [address] [id number] Medical Oncologist Hematology and Oncology 11/14/23 documented as of this encounter
--- OUTSIDE RECORDS SUMMARY | 2025-05-21 15:48 | XMS_ITS | Encounter Summary ---
Author Organization [facility] Address [address] [id number] Care Team Providers Care Lithographic Platemaker Name Role Phone Juaquin Anaya MD Primary Care Provider [phone] Eryn Valente MD Unavailable [phone] Encounter Details Date Type Department Care Team (Latest Contact Info) Description 04/16/2025 Travel Social History Tobacco Use Types Packs/Day [...] on file documented as of this encounter Functional Status * AUDIT-C Score Answer Date of Assessment Author 0 04/16/2025 2:22 PM EDT Magda Dooley, RN * Question Answer Date of Assessment Author Q1: How often do you have a drink containing alcohol? Never 04/16/2025 2:22 PM EDT Magda Dooley R N Q2: How many drinks containing alcohol do you have on a typical day when you are drinking? Patient does not drink 04/16/2025 2:22 PM EDT Magda Dooley, RN Q3: How often do you have six or more drinks on one occasion? Never 04/16/2025 2:22 PM EDT Magda Dooley R N documented as of this encounter Plan of Treatment Upcoming Encounters Date Type Department Care Team (Late st Contact Info) Description 06/04/2025 1:00 PM EDT Office Visit [facility] Medicine Specialties [address] [place] [address] Jefferson Barger PA [address] [place] [address] 07/03/2025 12:30 PM EDT Appointment [facility] [address] [place] [address] 07/06/2025 11:00 AM EDT Office Visit [facility] Vascular Interventional Radiology [address] [facility] [address] [place] [address] documented as of this encounter [...] documented as of this encounter Care Teams Lithographic Platemaker Relationship Specialty Start Date End Date Juaquin Anaya MD [address] [place] [address] PCP - General 01/21/21 Eryn Valente MD [address] [place] [address] Medical Oncologist Hematology and Oncology 11/14/23 documented as of this encounter
--- OUTSIDE RECORDS SUMMARY | 2025-05-21 15:48 | XMS_ITS | Encounter Summary ---
Author Organization [facility] Address [address] [place] [address] Care Team Providers Care Public Administration Teacher Name Role Phone Juaquin Anaya MD Primary Care Provider Eryn Valente MD Unavailable [phone] Encounter Details Date Type Department Care Team (Late st Contact Info) Description 11/20/2022 Orders Only [facility] [address] [place] [address] Eryn Valente MD [address] [address] Social History Tobacco Use Types Packs/Day Years Used Date Smoking Tobacco: Never Alcohol Use Standard Drinks/Week Comments No 0 (1 standard drink = 0.6 oz pur e alcohol) Comments Unknown Sex and Gender Information Value Date Recorded Sex Assigned at Not on file Legal Sex Female 6:06 PM EDT Gender Identity Not on file Sexual Orientation Not on file documented as of this encounter Plan of Treatment Upcoming Encounters Date Type Department Care Team (Late st Contact Info) Description 06/04/2025 1:00 PM EDT Office Visit [facility] Medicine Specialties [address] [place] [address] Jefferson Barger, PA [address] [place] [address] 07/03/2025 12:30 PM EDT Appointment [facility] [address] [place] [address] 07/06/2025 11:00 AM EDT Office Visit [facility] Vascular Interventional Radiology [address] [place] [address] documented as of this encounter Procedures Procedure Name Priority Date/Time Associated Diagnosis Comments PLATELET COUNT-CITRATE Routine 11/20/2022 9:17 AM EDT documented in this encounter Results * Platelet Count, Citrate (11/20/2022 9:17 AM EDT) External Platelets 63 K/uL [facility] Comment: Platelet result from sodium citrate specimen. No normal range has been established for sodium citrate. 11/20/2022 9:17 AM EDT 11/20/2022 9:40 AM EDT us Eryn Valente MD LAB BLOOD ORDERABLES Final Re sult Performing Organization Address City/State/[facility] Co de Phone Number [facility] [address] [place] [address], documented in this encounter Visit Diagnoses Not on filedocumented in this encounter Care Teams Public Administration Teacher Relationship Specialty Start Date End Date Juaquin Anaya MD [address] [place] [address] PCP - General 01/21/21 Eryn Valente MD [address] [facility] [address] [place] [address] Medical Oncologist Hematology and Oncology 11/14/23 documented as of this encounter
--- OUTSIDE RECORDS SUMMARY | 2025-05-21 15:48 | XMS_ITS | Encounter Summary ---
Author Organization [facility] Address [address] [place] [address] Care Team Providers Care Topographical Engineer Name Role Phone Juaquin Anaya MD Primary Care Provider [phone] Eryn Valente MD Unavailable [phone] Encounter Details Date Type Department Care Team (Latest Contact Info) Description 04/02/2025 Travel Social History Tobacco Use Types Packs/Day [...] Description 06/04/2025 1:00 PM EDT Office Visit [facility] Medicine Specialties [address] [place] [address] Jefferson Barger PA [address] [place] [address] 07/03/2025 12:30 PM EDT Appointment [facility] [address] [place] [address] 07/06/2025 11:00 AM EDT Office Visit [facility] Interventional Radiology [address] [place] [address] documented as of this encounter Goals Goal Patient Goal Type Associated Problems Recent Progress Patient-Stated? Author Autogenera dajuan Goal Care Plan Autogenerated Problem No Isabell Farrar Saniya documented as of this encounter Visit Diagnoses [...] documented as of this encounter Care Teams Topographical Engineer Relationship Specialty Start Date End Date Juaquin Anaya MD [address] [place] [address] PCP - General 01/21/21 Eryn Valente MD [address] [facility] [address] [place] [address] Medical Oncologist Hematology and Oncology 11/14/23 documented as of this encounter
--- OUTSIDE RECORDS SUMMARY | 2025-05-21 15:48 | XMS_ITS | Encounter Summary ---
Author Organization [facility] Address [address] [place] [address] Care Team Providers Care Saloon Keeper Name Role Phone Juaquin Anaya MD Primary Care Provider [phone] Eryn Valente MD Unavailable [phone] Encounter Details Date Type Department Care Team (Latest Contact Info) Description 05/15/2025 Travel Social History Tobacco Use Types Packs/Day [...] Description 06/04/2025 1:00 PM EDT Office Visit [place] [facility] Medicine Specialties [address] [place] [address] Jefferson Barger, PA [address] [place] [address] 07/03/2025 12:30 PM EDT Appointment [facility] [address] [place] [address] 07/06/2025 11:00 AM EDT Office Visit [facility] Vascular Interventional Radiology [address] [place] [address] documented as of this encounter Goals Goal [...] documented as of this encounter Care Teams Saloon Keeper Relationship Specialty Start Date End Date Juaquin Anaya MD [facility] [address] [place] [address] PCP - General 01/21/21 Eryn Valente MD [address] [place] [address] Medical Oncologist Hematology and Oncology 11/14/23 documented as of this encounter
--- OUTSIDE RECORDS SUMMARY | 2025-05-21 15:48 | XMS_ITS | Encounter Summary ---
Author Organization [facility] Address [address] [place] [address] Care Team Providers Care Mechanical Striper Name Role Phone Juaquin Anaya MD Primary Care Provider Eryn Valente MD Unavailable [phone] Encounter Details Date Type Department Care Team (Late st Contact Info) Description 10/25/2021 Orders Only [facility] [address] [place] [place] [address] Eryn Valente MD [address] [address] Social History Tobacco Use Types [...] Description 06/04/2025 1:00 PM EDT Office Visit [facility] Medicine Specialties [address] [place] [address] Jefferson Barger, PA [address] [place] [address] 07/03/2025 12:30 PM EDT Appointment [facility] [address] [place] [address] 07/06/2025 11:00 AM EDT Office Visit [facility] Vascular Interventional Radiology [address] [place] [address] documented as of this encounter Procedures Procedure Name Priority Date/Time Associated Diagnosis Comments PLATELET COUNT-CITRATE Routine 10/25/2021 1:10 PM EST documented in this encounter Results * Platelet Count, Citrate (10/25/2021 1:10 PM EST) External Platelets 72 K/uL [facility] Comment:No normal range has been established for sodium citrate. 10/25/2021 1:10 PM EST 10/25/2021 1:18 PM EST us Eryn Valente MD LAB BLOOD ORDERABLES Final Re sult Performing Organization Address City/State/[facility] Co de Phone Number [facility] [address] [place] [address], documented in this encounter Visit Diagnoses Not on filedocumented in this encounter Care Teams Mechanical Striper Relationship Specialty Start Date End Date Juaquin Anaya MD [address] [place] [address] PCP - General 01/21/21 Eryn Valente MD [address] [place] [address] Medical Oncologist Hematology and Oncology 11/14/23 documented as of this encounter
--- OUTSIDE RECORDS SUMMARY | 2025-05-21 15:48 | XMS_ITS | Encounter Summary ---
Author Organization [facility] Address [address] [place] [address] Care Team Providers Care Security Installation Technician Name Role Phone Juaquin Anaya MD Primary Care Provider [phone] Eryn Valente MD Unavailable [phone] Encounter Details Date Type Department Care Team (Late st Contact Info) Description 04/22/2025 Telephone [facility] Medicine Specialties [address] [place] [address] Asaf Simpson, RN MEDIC[facility] Social History Tobacco Use Types Packs/Day Years [...] on file documented as of this encounter Miscellaneous Notes * Telephone Encounter - Asaf iSmpson, RN - 05/15/2025 10:59 AM EDT S/W patient She is on her way to get labs now No questions, thanked me for calling * Telephone Encounter - Asaf Simpson RN - 04/22/2025 2:23 PM EDT S/W patient -gave her Jefferson's message -verbalized understanding -started back on [facility], will complete labs at and f/u with Jefferson later in May -no questions or concerns, thanked me for calling * Telephone Encounter - Asaf Simpson RN - 04/22/2025 2:23 PM EDT ----- Message from DAYANA Amaro sent at 04/22/2025 2:10 PM EDT ----- Please call patient to advise - IR reached out to me stating that she had some changes in her blood work from last week. - I have discussed her case with Dr. Champagne and he recommends: - No need for sooner imaging at this time. Can stay with scheduled MRI end of June. - No significant concern - these changes are likely due to the treatment she underwent with the recent Y-90. - Advised to follow up on these labs in 3 weeks- Orders have been placed. [facility] - Ask if she is having any concerns/questions/pain/symptoms. Thanks- Jefferson documented in this encounter Plan of Treatment Upcoming Encounters Date Type Department Care Team (Late st Contact Info) Description 06/04/2025 1:00 PM EDT Office Visit [facility] Medicine Specialties [address] [place] [address] Jefferson Barger PA [address] [place] [address] 07/03/2025 12:30 PM EDT Appointment [facility] [address] [place] [address] 07/06/2025 11:00 AM EDT Office Visit [facility] Interventional Radiology [address] [place] [address] documented as of this encounter Goals Goal [...] documented as of this encounter Care Teams Security Installation Technician Relationship Specialty Start Date End Date Juaquin Anaya MD [address] [place] [address] PCP - General 01/21/21 Eryn Valente MD [address] [place] [address] Medical Oncologist Hematology and Oncology 11/14/23 documented as of this encounter
--- OUTSIDE RECORDS SUMMARY | 2025-05-21 15:48 | XMS_ITS | Encounter Summary ---
Author Organization [facility] Address [address] [id number] Care Team Providers Care Food Dehydrator Operator Name Role Phone Juaquin Anaya MD Primary Care Provider [phone] Eryn Valente MD Unavailable [phone] Reason for Referral * Consultation (Routine) - Closed Specialty Diagnoses / Procedures Referred By Salvador chopra Referred To Contact Gastroenterology Diagnoses Pancytopenia Elevated liver enzymes Hepatic cirrhosis, unspecified hepatic cirrhosis type, unspecified whether ascites present (CMS/HCC) Hypoalbuminemia Fatty liver Diabetes mellitus associated with hormonal etiology Brittany Crespo APRN [address] [place] [address] Phone: tel: fax: Referral ID Status Reason Start Date Expiration Date V isits Requested Visits Authorized [id number] Closed Specialty Services Required 08/28/2024 02/27/2026 1 1 Encounter Details Date Type Department Care Team (Latest Contact Info) Description 08/28/2024 Community [facility] [address] [place] [address] Brittany Crespo APRN [address] [id number] Pancytopenia (CMS/HCC) (Primary Dx); Elevated liver enzymes; Hepatic cirrhosis, unspecified hepatic cirrhosis type, unspecified whether ascites present (CMS/HCC); Hypoalbuminemia; Fatty liver; Diabetes mellitus associated with hormonal etiology (CMS/HCC) Social History Tobacco Use Types Packs/Day Years [...] Description 06/04/2025 1:00 PM EDT Office Visit [facility] Medicine Specialties [address] [place] [address] Jefferson Barger PA [address] [place] [address] 07/03/2025 12:30 PM EDT [facility]ment [facility] [address] [place] [address] 07/06/2025 11:00 AM EDT Office Visit [facility] Vascular Interventional Radiology [address] [facility] [address] [place] [address] Scheduled Referrals Name Type Priority Associated Diagnoses Order Schedule Ambulatory referral to Gastroenterology Outpatient Referral Routine Pancytopenia (CMS/HCC) Elevated liver enzymes Hepatic cirrhosis, unspecified hepatic cirrhosis type, unspecified whether ascites present (CMS/HCC) Hypoalbuminemia Fatty liver Diabetes mellitus associated with hormonal etiology (CMS/HCC) Ordered: 08/28/2024 documented as of this encounter Visit Diagnoses Diagnosis Pancytopenia- Primary Elevated liver enzymes Other nonspecific abnormal serum enzyme levels Hepatic cirrhosis, unspecified hepatic cirrhosis type, unspecified whether ascites present (CMS/HCC) Hypoalbuminemia Other disorders of plasma protein metabolism Fatty liver Other chronic 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
--- OUTSIDE RECORDS SUMMARY | 2025-05-21 15:48 | XMS_ITS | Encounter Summary ---
Author Organization [facility] Address [address] [place] [address] Care Team Providers Care Railroad Car Repairman Name Role Phone Juaquin Anaya MD Primary Care Provider [phone] Eryn Valente MD Unavailable [phone] Reason for Visit * Reason Onset Date Comments Medication Reaction 04/16/2025 Encounter Details Date Type Department Care Team (Late st Contact Info) Description 04/16/2025 Telephone [facility] Medicine Specialties [address] [place] [address] [place] [address] Medication Reaction Social History Tobacco Use Types Packs/Day Years [...] Miscellaneous Notes * Telephone Encounter - Asaf Simpson RN - 04/17/2025 1:26 PM EDT F/U for labs * Telephone Encounter - Asaf Simpson RN - 04/17/2025 1:15 PM EDT S/W patient -gave her Jefferson's message -patient reports that she stopped taking medication Sunday04/13/25 afternoon and feels better already -denies s/sx of bleeding -Y90 F/U yesterday in D/C clinic -Will have labs completed at -verbalized understanding of all, thanked me for calling * Telephone Encounter - Ava Meyers - 04/16/2025 11:42 AM EDT Received call from patient Patient calling back to relay most recent BP Patient states that her BP right now is 113/64 Patient states that she looked up what her BP was at her dr appt- it was 113/64 as well * Telephone Encounter - Ava Meyers - 04/16/2025 10:28 AM EDT Received call from patient Patient states that she is having a hard time with it Patient is requesting a change in medication Patient states since started carvedilol she has been very fatigued and SOB- patient has been on medication since February Patient states that her last BP was ??/60- patient couldn't remember the top number Patient did not have a BP machine at home to retake BP Advised patient to hold medication until seen by provider and retake her BP for an up to date reading Advised patient also to advise appeals examiner Patient verbalized understading CB: [phone] documented in this encounter Plan of Treatment Upcoming Encounters Date Type Department Care Team (Late st Contact Info) Description 06/04/2025 1:00 PM EDT Office Visit [facility] Medicine Specialties [address] [place] [address] Jefferson Barger, PA [address] [place] [address] 07/03/2025 12:30 PM EDT Appointment [facility] [address] [place] [address] 07/06/2025 11:00 AM EDT Office Visit [facility] Vascular Interventional Radiology [address] [facility] [address] [place] [address] documented as of this encounter [...] documented as of this encounter Care Teams Railroad Car Repairman Relationship Specialty Start Date End Date Juaquin Anaya MD [address] [place] [address] PCP - General 01/21/21 Eryn Valente MD [address] [address] Medical Oncologist Hematology and Oncology 11/14/23 documented as of this encounter
--- OUTSIDE RECORDS SUMMARY | 2025-05-21 15:48 | XMS_ITS | Encounter Summary ---
Author Organization [facility] Address [address] [place] [address] Care Team Providers Care Head Insulation Board Saw Operator Name Role Phone Juaquin Anaya MD Primary Care Provider Eryn Valente MD Unavailable [phone] Encounter Details Date Type Department Care Team (Late st Contact Info) Description 03/15/2021 Orders Only [facility] [address] [place] [address] Eryn Valente MD [address] [address] Social History Tobacco Use Types [...] Description 06/04/2025 1:00 PM EDT Office Visit [facility] Medicine Specialties [address] [place] [address] Jefferson Barger, PA [address] [place] [address] 07/03/2025 12:30 PM EDT Appointment [facility] [address] [place] [id number] 07/06/2025 11:00 AM EDT Office Visit [facility] Vascular Interventional Radiology [address] [place] [address] documented as of this encounter Procedures Procedure Name Priority Date/Time Associated Diagnosis Comments CBC WITH AUTO DIFFERENTIAL Routine 03/15/2021 4:43 PM EDT documented in this encounter Results * (ABNORMAL) CBC and Differential (03/15/2021 4:43 PM EDT) External WBC 7.9 3.8 - 10.8 K/uL [facility] External Red Blood Cell (RBC) 4.40 3.80 - 5.20 M/uL [facility] External Hemoglobin 15.5 12.0 - 16.0 G/DL [facility] External Hematocrit 43.5 35.0 - 47.0 % [facility] External MCV 99 80 - 100 fL [facility] External MCH 35 26 - 35 PG [facility] External MCHC 36 32 - 36 G/DL [facility] External RDW 13.8 11.0 - 15.0 % [facility] External Mean Platelet Volume 8.9 6.2 - 10.5 fL [facility] External Platelets 89(L) 130 - 400 K/uL [facility] External Neutrophil# 4.5 1.6 - 8.4 K/uL [facility] External Lymphocyte# 2.0 0.4 - 5.1 K/uL [facility] External Absolute Monocyte (Abs [place]) 0.9 0.0 - 1.2 K/uL [facility] External Eosinophils# 0.4 0.0 - 0.8 K/uL [facility] External Baso# 0.1 0.0 - 0.3 K/uL [facility] External Neutrophils % 57.9 42.0 - 78.0 % [facility] External Lymphocyte % 25.5 11.0 - 47.0 % [facility] External Monocyte % 11.3(H) 0.0 - 11.0 % [facility] External Eosinophil% 4.5 0.0 - 7.0 % [facility] External Basophil % 0.8 0.0 - 3.0 % [facility] External Nucleated RBC%-Auto 0.0 0.0 - 0.9 % [facility] External Nucleated RBC Absolute 0.00 Not Estab. K/uL [facility] 03/15/2021 4:43 PM EDT 03/15/2021 5:07 PM EDT us Eryn Valente MD LAB BLOOD ORDERABLES Final Re sult [facility] [address] [place] [address], documented in this encounter Visit Diagnoses Not on filedocumented in this encounter Care Teams Head Insulation Board Saw Operator Relationship Specialty Start Date End Date Juaquin Anaya MD [address] [place] [address] PCP - General 01/21/21 Eryn Valente MD [address] [address] Medical Oncologist Hematology and Oncology 11/14/23 documented as of this encounter
--- OUTSIDE RECORDS SUMMARY | 2025-05-21 15:48 | XMS_ITS | Encounter Summary ---
Author Organization [facility] Address [address] [place] [address] Care Team Providers Care Director Corporate Compliance Name Role Phone Juaquin Anaya MD Primary Care Provider [phone] Eryn Valente MD Unavailable [phone] Encounter Details Date Type Department Care Team (Late st Contact Info) Description 10/25/2021 Orders Only [facility] [address] [place] [address] Eryn Valente MD [address] [address] Social History Tobacco Use Types [...] 06/04/2025 1:00 PM EDT Office Visit [facility] Medicine Specialties [address] [place] [address] Jefferson Barger, PA [address] [place] [phone] 07/03/2025 12:30 PM EDT Appointment [facility] [address] [place] [phone] 07/06/2025 11:00 AM EDT Office [facility] Vascular Interventional Radiology [address] [place] [address] documented as of this encounter Procedures Procedure Name Priority Date/Time Associated Diagnosis Comments CBC WITH AUTO DIFFERENTIAL Routine 10/25/2021 1:10 PM EST documented in this encounter Results * (ABNORMAL) CBC and Differential (10/25/2021 1:10 PM EST) External WBC 4.7 3.8 - 10.8 K/uL [facility] External Red Blood Cell (RBC) 4.19 3.80 - 5.20 M/uL [facility] External Hemoglobin 14.7 12.0 - 16.0 G/DL [facility] External Hematocrit 41.4 35.0 - 47.0 % [facility] External MCV 99 80 - 100 fL [facility] External MCH 35 26 - 35 PG [facility] External MCHC 36 32 - 36 G/DL [facility] External RDW 13.8 11.0 - 15.0 % [facility] External Mean Platelet Volume 9.8 6.2 - 10.5 fL [facility] External Platelets 74(L) 130 - 400 K/uL [facility] External Neutrophil# 2.6 1.6 - 8.4 K/uL [facility] External Lymphocyte# 1.3 0.4 - 5.1 K/uL [facility] External Absolute Monocyte (Abs [place]) 0.5 0.0 - 1.2 K/uL [facility] External Eosinophils# 0.2 0.0 - 0.8 K/uL [facility] External Baso# 0.1 0.0 - 0.3 K/uL [facility] External Neutrophils % 55.3 42.0 - 78.0 % [facility] External Lymphocyte % 28.3 11.0 - 47.0 % [facility] External Monocyte % 10.7 0.0 - 11.0 % [facility] External Eosinophil% 4.6 0.0 - 7.0 % [facility] External Basophil % 1.1 0.0 - 3.0 % [facility] External Nucleated RBC%-Auto 0.0 0.0 - 0.9 % [facility] External Nucleated RBC Absolute 0.00 Not Estab. K/uL [facility] 10/25/2021 1:10 PM EST 10/25/2021 1:18 PM EST us Eryn Valente MD LAB BLOOD ORDERABLES Final Re sult Performing Organization Address City/State/[facility] Co de Phone Number [facility] [address] [place] [address], documented in this encounter Visit Diagnoses Not on filedocumented in this encounter Care Teams Director Corporate Compliance Relationship Specialty Start Date End Date Juaquin Anaya MD [address] [facility] [address] [place] [address] PCP - General 01/21/21 Eryn Valente MD [address] [address] Medical Oncologist Hematology and Oncology 11/14/23 documented as of this encounter
--- OUTSIDE RECORDS SUMMARY | 2025-05-21 15:49 | XMS_ITS | Clinical Summary ---
Author Organization [facility] Address [address] [place] [address] Care Team Providers Care Medical Technologist Prn Name Role Phone Juaquin Anaya MD Primary Care Provider [phone] Eryn Valente MD Unavailable [phone] Allergies Active Allergy Reactions Criticality Noted Date Comments Sulfa Drugs Nausea And Vomiting 02/15/2018 Medications Calcium Carb-Cholecalc iferol (Caltrate 600+D3 Soft) 600-20 MG-MCG chewable tablet in the morning. Acti ve Semaglutide,0. 25 or 0.5MG/DOS, (Ozempic, 0.25 or 0.5 MG/DOSE,) 2 MG/3ML solution pen-injector Active spironolactone (Aldactone) 25 MG tablet Take 1 tablet by mouth twice a day. 07/09/20 24 Active losartan-hydro CHLOROthiazide (Hyzaar) 100-25 MG tablet Take 1 tablet by mouth Daily. Active nutrional drink glucose control (Boost Glucose Control) liquid liquid Drink 1 supplement up to 3 times a day or As Directed as a nutritional supplement. Flavor preference: per patient. Please dispense up to 4 cases at a time per patient request 237 mL 25 12/03/19 25 Active carvedilol (Coreg) 3.125 MG tablet TAKE 1 TABLET BY MOUTH EVERY MORNING AND TAKE 1 TABLET BY MOUTH EVERY EVENING with food 60 tablet 2 03/04/20 25 Active Additional Information Patient not taking.Reported on 04/16/2025 escitalopram (Lexapro) 10 MG tablet TAKE 1 TABLET DAILY. 07/31/20 19 024 Discontinue d([facility] Reorder) furosemide (Lasix) 20 MG tablet 07/31/20 19 024 Discontinue d([facility] Reorder) metFORMIN (Glucophage) 500 MG tablet 07/31/20 024 Discontinue d([facility] Re[facility]) Active Problems Problem Noted Date Diagnosed Date Class III obesity with body mass index (BMI) of 40.0 or higher 04/21/2025 Coronary artery disease invo lving [place] coronary artery of [place] heart without angina pectoris 12/02/2024 Pancytopenia 12/02/2024 Hypertension, essential 10/09/2024 PAC (premature atrial contraction) 10/09/2024 Takotsubo cardiomyopathy 10/09/2024 Overview (12/02/2024): 2012 after . Normal [facility] 2012 Ventricular premature beats 04/18/2020 Abnormal LFTs 07/31/2019 NAFLD (nonalcoholic fatty liver disease) 019 Obesity 07/31/2019 Portal hypertension 07/25/2019 Thrombocytopenia 02/15/2018 Encounters Date Type Department Care Team Description 05/15/2025 Travel 04/22/2025 Telephone [facility] Medicine Specialties [address] [place] [address] Asaf Simpson, RN 04/22/2025 Orders Only [facility] Medicine Specialties [address] [place] [address] Jefferson Barger PA Abnormal LFTs (Primary Dx); NAFLD (nonalcoholic fatty liver disease); Hepatocellular carcinoma 04/17/2025 Travel 04/17/2025 Orders Only [facility] Medicine Specialties [address] [place] [address] Jefferson Barger PA Other cirrhosis of liver (CMS/HCC) (Primary Dx); Other fatigue; Dyspnea, unspecified type 04/16/2025 2:30 PM EDT Office Visit [facility] Vascular Interventional Radiology [address] [place] [address] Solange Diop, THERMAL CUTTER HAND, DNP Abnormal LFTs (Primary Dx); Hepatocellular carcinoma 04/16/2025 Travel 04/16/2025 Telephone [facility] Medicine Specialties [address] [place] [address] Ava Meyers Medication Reaction 04/02/2025 10:00 AM EDT - 04/02/2025 11:59 PM EDT Hospital Encounter [facility] [address] [place] [address] Liver cell carcinoma Discharge Disposition: Home or Self Care 04/02/2025 8:00 AM EDT - 04/02/2025 9:59 AM EDT Hospital Encounter [facility] [address] [place] [address] Liver cell carcinoma Discharge Disposition: Home or Self Care 04/02/2025 6:13 AM EDT - 04/02/2025 7:59 AM EDT Hospital Encounter [facility] [address] [place] [address] Kanika Diaz MD Crawford, Tamara M, RN Liver cell carcinoma Discharge Disposition: Home or Self Care 04/02/2025 Travel 03/16/2025 4:35 PM EDT - 03/16/2025 11:59 PM EDT Hospital Encounter [facility] [address] [place] [address] Ilan Rudolph, shoe lining fitter Disposition: Home or Self Care 03/16/2025 10:30 AM EDT - 03/16/2025 4:34 PM EDT Hospital Encounter [facility] [address] [place] [address] Liver cell carcinoma Discharge Disposition: Home or Self Care 03/16/2025 8:47 AM EDT - 03/16/2025 10:29 AM EDT Hospital Encounter [facility] [address] [place] [address] Kanika Diaz MD Velez, Alexa Liver cell carcinoma Discharge Disposition: Home or Self Care 03/16/2025 Travel 03/11/2025 9:30 AM EDT Office Visit [facility] Vascular Interventional Radiology [address] [place] [address] Kala Anguiano, THERMAL CUTTER HAND Encounter for other preprocedural examination (Primary Dx) 03/11/2025 Travel 03/04/2025 Refill [facility] Medicine Specialties [address] [place] [address] Jefferson Barger PA 02/20/2025 Orders Only [facility] Medicine Specialties [address] [place] [address] Jefferson Barger PA Hepatocellular carcinoma (Primary Dx); Other cirrhosis of liver (CMS/HCC); NAFLD (nonalcoholic fatty liver disease) 02/19/2025 Results Follow-Up [facility] Medicine Specialties [address] [place] [address] Jefferson Barger PA 02/18/2025 5:52 PM EDT - 02/18/2025 11:59 PM EDT Hospital Encounter [facility] [address] [place] [address] Portal hypertension (CMS/HCC); Thrombocytopenia (CMS/HCC); Other cirrhosis of liver (CMS/HCC) Discharge Disposition: Home or Self Care 02/18/2025 Travel from Last 3 Months Immunizations Immunization Administration Dates Next Due Influenza, High-dose, Split Virus, Trivalent, Injectable, preservative free 07/22/2024,05/22/2023,06/26/2022,06/09,06/24/2020,07/24/2019,07/10/2018 Influenza, high-dose, quadrivalent 06/10/2021 Influenza, injectable, quadrivalent 06/25/2017 Moderna COVID-19 Vaccine (Re d Cap) 12+ years 01/08/2021 Pneumococcal Polysaccharide PPV23 09/19/2018 Tdap 12/08/2021 Zoster, Recombinant 03/25/2024,11/27/2023 Family History Medical History Relation Name Comments Aneurysm Mother Relation Name Status Comments Mother Social History Tobacco Use Types Packs/Day Years Used Date Smoking Tobacco: Never Passive Smoke Exposure: Never Smokeless Tobacco: Never Tobacco Cessation:Counseling Given: Not Answered Alcohol Use Standard Drinks/Week Comments Never 0 [...] on file Sexual Orientation Not on file Last Filed Vital Signs Vital Sign Reading Time Taken Comments Blood Pressure 118/75 04/16/2025 2:19 PM EDT Pulse 58 04/16/2025 2:19 PM EDT Temperature 36.4 C (97.5 F) 04/16/2025 2:19 PM EDT Respiratory Rate 14 04/02/2025 12:15 PM EDT Oxygen Saturation 98% 04/16/2025 2:19 PM EDT Inhaled Oxygen Concentration - - Weight 104 kg (228 lb 2.8 oz) 04/16/2025 2:19 PM EDT Height 160 cm (5' 2.99 ) 04/16/2025 2:19 PM EDT Body Mass Index 40.43 04/16/2025 2:19 PM EDT Plan of Treatment Upcoming Encounters Date Type Department Care Team (Late st Contact Info) Description 06/04/2025 1:00 PM EDT Office Visit [facility] Medicine Specialties [address] [place] [address] Jefferson Barger PA [address] [place] [address] 07/03/2025 12:30 PM EDT Appointment [facility] [address] [place] [address] 07/06/2025 11:00 AM EDT Office Visit [facility] Vascular Interventional Radiology [address] [place] [address] Health Maintenance Due Date Last Done Comments [facility]-Bone Density Scan 1950 [facility]-Medicare Annual Wellness (AWV) 1950 [facility]-Infant/Child/Adol SDOH Screenings 1950 Diabetes: Dental Exam 1959 [facility]- SDOH Screenings 1967 [facility]-Adult SDOH Screenings 1967 [facility]-Hepatitis A Vaccines (1 of 2 - Risk 2-dose series) 1968 [facility]-Diabetes: Hemoglobin A1C 01/28/2020 07/31/2019 [id number] Vaccine (2024- season) 2025 01/08/2021, 11/10/2020, 10/14/2020 [facility]-Influenza Vaccine (#1) 05/11/202507/22, 05/22/2023, 07/10/2022, Additional history exists [facility]-Depression Screening 12/02/2025 12/02/2024, 11/09 [facility]-DTaP,Tdap,and Td Vaccines (2 - Td or Tdap) 12/09/2031 12/08/2021 [facility]-Pneumococcal Vaccine: 50+ Years Completed 09/19/2018, 10/02/2016 [facility]-Hepatitis C Screening Completed 07/31/2019 [facility]-Zoster Vaccines Completed 03/25/2024, [facility]-Obesity Intervention Completed 025, 04/02/2025, 03/16/2025, Additional history exists [facility]-RSV Vaccine: 60+ Years or Completed 05/14/2025 HPV Vaccines Aged Out No longer eligi ble based on patient's age to complete this topic [facility]-HIB Vaccines Aged Out No longer e ligible based on patient's age to complete this topic [facility]-IPV Vaccines Aged Out No longer e ligible based on patient's age to complete this topic [facility]-Rotavirus Vaccines Aged Out No lo nger eligible based on patient's age to complete this topic Goals Goal Patient Goal Type Associated Problems Recent Progress Patient-Stated? Author Autogenera dajuan Goal Care Plan Autogenerated Problem No Hopper, Isabell A Medical Devices Implanted Type Area Ob Scrub Tech Device Identifier Shelf Expiration Date Model / Serial / Lot Therasphere Cruz Iii Admin Set Implanted:Qty: 1 on 04/02/2025 by Kanika Diaz MD at [facility] Implant 09/30/2025 [id number] / / [id number] Therasphere Cruz Iii Admin Set Implanted:Qty: 1 on 04/02/2025 by Kanika Diaz MD at [facility] Implant 10/17/2025 [id number] / / [id number] Vip Vascular Closure Device 6 Fr - [id number] Implanted:Qty: 1 on 04/02/2025 by Kanika Diaz MD at [facility] [id number] 11/24/2025 [id number] / / [id number] Procedures Procedure Name Priority Date/Time Associated Diagnosis Comments ALPHA FETOPROTEIN, SERUM Routine 025 12:31 PM EDT Abnormal LFTs NAFLD (nonalcoholic fatty liver disease) Hepatocellular carcinoma CBC WITH AUTO DIFFERENTIAL Routine 05/15/2025 12:31 PM EDT Abnormal LFTs NAFLD (nonalcoholic fatty liver disease) Hepatocellular carcinoma COMPREHENSIVE METABOLIC PANEL, PLASMA Routine 05/15/2025 12:31 PM EDT Abnormal LFTs NAFLD (nonalcoholic fatty liver disease) Hepatocellular carcinoma PROTHROMBIN TIME(PT) / INR Routine 05/15/2025 12:31 PM EDT Abnormal LFTs NAFLD (nonalcoholic fatty liver disease) Hepatocellular carcinoma CBC WITH AUTO DIFFERENTIAL Routine 04/17/2025 2:45 PM EDT Other cirrhosis of liver (CMS/HCC) Other fatigue Dyspnea, unspecified type PROTHROMBIN TIME(PT) / INR Routine 04/17/2025 2:45 PM EDT Other cirrhosis of liver (CMS/HCC) Other fatigue Dyspnea, unspecified type IRON & TOTAL IRON BINDING CAPACITY, PLASMA (INCLUDES TRANSFERRIN) Routine 04/17/2025 2:45 PM EDT Other cirrhosis of liver (CMS/HCC) Other fatigue Dyspnea, unspecified type FERRITIN, SERUM Routine 04/17/2025 2:45 PM EDT Other cirrhosis of liver (CMS/HCC) Other fatigue Dyspnea, unspecified type COMPREHENSIVE METABOLIC PANEL, PLASMA Routine 04/16/2025 3:08 PM EDT Abnormal LFTs ALPHA FETOPROTEIN, SERUM Routine 3:08 PM EDT Abnormal LFTs NM LIVER SPLEEN SCAN W SPECT/CT Routine 04/02/2025 11:29 AM EDT Liver cell carcinoma NM SUPERVISION PARENTERAL RADIOMICROSPHERES THERAPY LIVER TUMOR Routine 04/02/2025 10:30 AM EDT Liver cell carcinoma IR THERASPHERE TREATMENT Routine 10:30 AM EDT Liver cell carcinoma EXTRA TUBE LAVENDER TOP Routine 04/02/20 7:28 AM EDT EXTRA TUBES Routine 04/02/2025 7:28 AM EDT COMPREHENSIVE METABOLIC PANEL, PLASMA STAT 04/02/2025 7:28 AM EDT NM LIVER SPLEEN SCAN W SPECT/CT Routine 03/16/2025 5:52 PM EDT Liver cell carcinoma IR THERASPHERE MAPPING Routine 4:22 PM EDT Liver cell carcinoma POCT GLUCOSE METER UNSOLICITED RESULTS Routine 03/16/2025 9:34 AM EDT PROTHROMBIN TIME(PT) / INR Routine 03/11/2025 10:13 AM EDT Encounter for other preprocedural examination COMPREHENSIVE METABOLIC PANEL, PLASMA Routine 03/11/2025 10:13 AM EDT Encounter for other preprocedural examination CBC W/O DIFFERENTIAL Routine 03/11/2025 10:13 AM EDT Encounter for other preprocedural examination CT CHEST W IV CONTRAST STAT 6:23 PM EDT Portal hypertension (CMS/HCC) Thrombocytopenia (CMS/HCC) Other cirrhosis of liver (CMS/HCC) HEPATITIS C ANTIBODY W/REFLEX TO HCV QUANT PCR Routine 07/31/2019 11:13 AM EST HEMOGLOBIN A1C Routine 07/31/2019 11:13 AM EST from Last 3 Months or Most Recently Relevant to Health Maintenance Results * (ABNORMAL) Alpha Fetoprotein, Serum (05/15/2025 12:31 PM EDT) Only the most recent of2 resultswithin the time period is included. Alpha Fetoprotein, Serum 24.4(H) <10.0 ng/mL 05/15/2025 3:49 PM EDT [facility] Blood Venous blood specimen / Unknown Venipuncture / Unknown 05/15/2025 12:31 PM EDT 05/15/2025 12:31 PM EDT Narrative [facility] - 05/15/2025 3:49 PM EDT Performed by Jamal electrochemiluminescent immunoassay which is traceable to the 1st AFP IRP WHO Reference standard 72/255. Results obtained with different test methods or kits cannot be used interchangeably. us [facility] BLOOD ORDERABLES Final Res ult [facility] [address] [place] [address] * (ABNORMAL) Prothrombin Time/INR (05/15/2025 12:31 PM EDT) Only the most recent of3 resultswithin the time period is included. Prothrombin Time 16.9(H) 12.0 - 14.3 sec LAB COAGULATION METHOD 05/15/2025 2:34 PM EDT [facility] INR 1.4(H) 0.9 - 1.1 LAB COAGULATION METHOD 05/15/2025 2:34 PM EDT [facility] Blood Venous blood specimen / Unknown Venipuncture / Unknown 05/15/2025 12:31 PM EDT 05/15/2025 12:31 PM EDT Narrative [facility] - 05/15/2025 2:34 PM EDT OPTIMAL INR RANGES FOR PATIENT ON ORAL ANTICOAGULANT THERAPY Prevention of venous thromboembolism INR 2.0 to 3.0 In patients with heart disease: Atrial fibrillation INR 2.0 to 3.0 Valvular heart disease INR 2.0 to 3.0 Tissue heart valves INR 2.0 to 3.0 Mechanical prosthetic valves INR 2.5 to 3.5 Prevention of recurrent OR INR 2.5 to 3.5 us [facility] BLOOD ORDERABLES Final Res ult [facility] [address] [place] [address] * (ABNORMAL) CBC and Differential (05/15/2025 12:31 PM EDT) Only the most recent of2 resultswithin the time period is included. WBC Count 4.17 3.70 - 10.30 10*3/uL LAB HEMATOLOGY METHOD 05/15/2025 2:18 PM EDT [facility] RBC Count 2.62(L) 3.90 - 5.20 10*6/uL LAB HEMATOLOGY METHOD 05/15/2025 2:18 PM EDT [facility] HGB 9.8(L) 11.2 - 15.7 g/dL LAB HEMATOLOGY METHOD 05/15/2025 2:18 PM EDT [facility] HCT 26.9(L) 34.0 - 45.0 % LAB HEMATOLOGY METHOD 05/15/2025 2:18 PM EDT [facility] Platelet Count 64(L) 155 - 369 10*3/uL LAB HEMATOLOGY METHOD 05/15/2025 2:18 PM EDT [facility] MCV 103(H) 79 - 98 fL LAB HEMATOLOGY METHOD 05/15/2025 2:18 PM EDT [facility] MCH 37.4(H) 26.0 - 32.0 pg LAB HEMATOLOGY METHOD 05/15/2025 2:18 PM EDT [facility] MCHC 36.4(H) 30.7 - 35.5 g/dL LAB HEMATOLOGY METHOD 05/15/2025 2:18 PM EDT [facility] RDW 13.5 11.5 - 14.5 % LAB HEMATOLOGY METHOD 05/15/2025 2:18 PM EDT [facility] MPV 10.3 8.8 - 12.5 fL LAB HEMATOLOGY METHOD 05/15/2025 2:18 PM EDT [facility] nRBC 0.0 <=0.0 per 100 WBCs LAB HEMATOLOGY METHOD 05/15/2025 2:18 PM EDT [facility] Differential Type Automated LAB HEMATOLOGY METHOD 05/15/2025 2:18 PM EDT [facility] Neutrophils % 63 % LAB HEMATOLOGY METHOD 05/15/2025 2:18 PM EDT [facility] Lymphocytes % 10 % LAB HEMATOLOGY METHOD 05/15/2025 2:18 PM EDT [facility] Monocytes % 16 % LAB HEMATOLOGY METHOD 05/15/2025 2:18 PM EDT [facility] Eosinophils % 8 % LAB HEMATOLOGY METHOD 05/15/2025 2:18 PM EDT [facility] Basophils % 1 % LAB HEMATOLOGY METHOD 05/15/2025 2:18 PM EDT [facility] Immature Granulocytes % 2 % LAB HEMATOLOGY METHOD 05/15/2025 2:18 PM EDT [facility] Neutrophils Absolute 2.63 1.60 - 6.10 10*3/uL LAB HEMATOLOGY METHOD 05/15/2025 2:18 PM EDT [facility] Lymphocytes Absolute 0.41(L) 1.20 - 3.90 10*3/uL LAB HEMATOLOGY METHOD 05/15/2025 2:18 PM EDT [facility] Monocytes Absolute 0.68 0.30 - 0.90 10*3/uL LAB HEMATOLOGY METHOD 05/15/2025 2:18 PM EDT [facility] Eosinophils Absolute 0.34 0.00 - 0.50 10*3/uL LAB HEMATOLOGY METHOD 05/15/2025 2:18 PM EDT [facility] Basophils Absolute 0.03 0.00 - 0.10 10*3/uL LAB HEMATOLOGY METHOD 05/15/2025 2:18 PM EDT [facility] Immature Granulocytes Absolute 0.08(H) 0.00 - 0.06 10*3/uL LAB HEMATOLOGY METHOD 05/15/2025 2:18 PM EDT [facility] Blood Venous blood specimen / Unknown Venipuncture / Unknown 05/15/2025 12:31 PM EDT 05/15/2025 12:31 PM EDT Narrative [facility] - 05/15/2025 2:18 PM EDT Therapeutic decision making should be based on absolute values, rather than percentages. us [facility] BLOOD ORDERABLES Final Res ult [facility] [address] [place] [address] * (ABNORMAL) Comprehensive Metabolic Panel, Plasma (05/15/2025 12:31 PM EDT) Only the most recent of4 resultswithin the time period is included. Glucose, Plasma 137(H) 74 - 99 mg/dL 05/15/2025 2:36 PM EDT [facility] BUN, Plasma 17 8 - 23 mg/dL 05/15/2025 2:36 PM EDT [facility] Creatinine, Plasma 0.97 0.60 - 1.10 mg/dL 05/15/2025 2:36 PM EDT [facility] BUN/Creatinine Ratio 18 05/15/2025 2:36 PM EDT [facility] Sodium, Plasma 127(L) 136 - 145 mmol/L 05/15/2025 2:36 PM EDT [facility] Potassium, Plasma 4.9 3.6 - 4.9 mmol/L 05/15/2025 2:36 PM EDT [facility] Chloride, Plasma 98 97 - 107 mmol/L 05/15/2025 2:36 PM EDT [facility] CO2, Plasma 20(L) 22 - 29 mmol/L 05/15/2025 2:36 PM EDT [facility] Anion Gap 9 6 - 16 mmol/L 05/15/2025 2:36 PM EDT [facility] Total Calcium, Plasma 9.1 8.9 - 10.2 mg/dL 05/15/2025 2:36 PM EDT [facility] Total Protein 6.1(L) 6.3 - 7.9 g/dL 05/15/2025 2:36 PM EDT [facility] Albumin, Plasma 3.1(L) 3.5 - 5.2 g/dL 05/15/2025 2:36 PM EDT [facility] AST, Plasma 60(H) 10 - 35 U/L 05/15/2025 2:36 PM EDT [facility] ALT, Plasma 33 10 - 35 U/L 05/15/2025 2:36 PM EDT [facility] Alkaline Phosphatase, Plasma 185(H) 46 - 142 U/L 05/15/2025 2:36 PM EDT [facility] Total Bilirubin, Plasma 2.2(H) 0.2 - 1.1 mg/dL 05/15/2025 2:36 PM EDT [facility] eGFRcr 60.7 mL/min/1.7 3m*2 05/15/2025 2:36 PM EDT [facility] Comment:Reported eGFRcr in m L/min/1.73m2 is based the CKD-EPI 2020 equation that does not use a race coefficient. Blood Venous blood specimen / Unknown Venipuncture / Unknown 05/15/2025 12:31 PM EDT 05/15/2025 12:31 PM EDT us [facility] BLOOD ORDERABLES Final Res ult [facility] [address] [place] [address] * (ABNORMAL) Iron & Total Iron Binding Capacity, Plasma (Includes Transferrin) (04/17/2025 2:45 PM EDT) Iron, Plasma 152 30 - 160 ug/dL 04/17/2025 4:12 PM EDT [facility] Transferrin, Plasma 175(L) 200 - 360 mg/dL 04/17/2025 4:12 PM EDT [facility] Total Iron Binding Capacity, Plasma 219(L) 240 - 450 ug/mL 04/17/2025 4:12 PM EDT [facility] Transferrin Saturation 69(H) 14 - 50 % 04/17/2025 4:12 PM EDT [facility] Blood Venous blood specimen / Unknown Venipuncture / Unknown 04/17/2025 2:45 PM EDT 04/17/2025 2:45 PM EDT [facility] BLOOD ORDERABLES Final Res ult Performing Organization Address [facility]/ZIP Co de Phone Number [facility] [address] [place] [address] * (ABNORMAL) Ferritin (04/17/2025 2:45 PM EDT) Ferritin, Serum 548(H) 13 - 150 ng/mL 04/17/2025 4:43 PM EDT [facility] Blood Venous blood specimen / Unknown Venipuncture / Unknown 04/17/2025 2:45 PM EDT 04/17/2025 2:45 PM EDT [facility] BLOOD ORDERABLES Final Res ult Performing Organization Address [facility] [place] [address] * NM Liver Spleen Scan w SPECT/CT (04/02/2025 11:29 AM EDT) Only the most recent of2 resultswithin the time period is included. Anatomical Region Laterality Modality Abdomen Nuclear Medicine [...] upper abdomen were acquired and processed using [employer] 16 SPECT/CT hybrid technology. Three-dimensional attenuation-corrected SPECT, CT and fused SPECT/CT tomographic images in coronal, sagittal, and transverse planes were created and reviewed interactively to optimize sensitivity, specificity, and anatomic localization. CT: low-dose, [id number], without intravenous contrast; TOTAL DLP (Dose Length [...] upper abdomen were acquired and processedusing Siemens Visual [employer] Intevo 16 SPECT/CT hybrid technology.Three-dimensional attenuation-corrected SPECT, CT and fused SPECT/CTtomographic images in coronal, sagittal, and transverse planes werecreated and reviewed interactively to optimize sensitivity, specificity,and anatomic localization. CT: low-dose, [id number], withoutintravenous contrast; TOTAL DLP (Dose Length Product): [...] MD IMG NM PROCEDURES Final Res ult * IR Therasphere Treatment (04/02/2025 10:30 AM [...] Theraspheres treatment following mapping on 03/16/25. TECHNIQUE: Boiler/Chiller Operator: Kanika Diaz MD Secondary Air Tube Releaser: Gonzalez Beck M.D. Nurse: Erin Sow Technologist: Eugene Hooks Radiation dose: 2375 mGy Medications: IV [...] and draped in the normal sterile fashion. [facility] Theraspheres safety checklist was followed before, during, [...] a 5 Fr vascular sheath. A 5 [place] Cobra catheter was advanced over the Bentson wire and formed in the descending aorta. Using the 5 [place] catheter, the Celiac artery was catheterized. The position was confirmed with hand contrast injection. The catheter was advanced into the common hepatic artery over a 0.035 inch Glidewire. Hand contrast injection again confirmed appropriate positioning. Digital subtraction angiography was performed. Through the Cobra catheter, a 2.4 [place] Progreat microcatheter in conjunction with the microwire [...] Subsequently, the microcatheter was removed along with [facility]'s administration tubing and placed in appropriate radioactive waste container as per IFU. Attention was then turned to the segment 6 branch of the right hepatic artery supplying the segment 5/6 mass. Through the 5 [place] Cobra catheter, a new 2.4 [place] Progreat microcatheter in conjunction with the microwire [...] use a vascular closure device. The 5 [place]ian [place] sheath was exchanged over a 0.035 inch Bentson wire for a 6 [place] Angio-Seal closure device which was deployed as per IFU followed by 5 minutes of manual compression. A sterile occlusive dressing was then applied. No immediate complications. The patient tolerated the procedure well. The patient was transferred immediately after termination of procedure to obtain [employer]hl[employer] abdominal imaging in stable condition. Radiation safety sealer was present for supervisor vendor quality and radiation safety monitoring. COMPARISON: MRI abdomen [...] for Theraspherestreatment following mapping on 03/16/25. TECHNIQUE: Boiler/Chiller Operator: Kanika Diaz MD Secondary Air Tube Releaser: Gonzalez Beck M.D. Nurse: Erin Sow Technologist: Eugene Hooks Radiation dose: 2375 mGy Medications: IV [...] and draped in the normal sterile fashion. [facility] Podimetricss safetychecklist was followed before, during, and at [...] [facility] After standard exchanges, a 0.035 inch Bentson wire was advanced. Accesswas secured using a 5 Fr vascular sheath. A 5 [place] Cobra catheter wasadvanced over the Bentson wire and formed in the descending aorta. Usingthe 5 Malawian catheter, the Celiac artery was catheterized. The positionwas confirmed with hand contrast injection. The catheter was advanced intothe common hepatic artery over a 0.035 inch Glidewire. Hand contrastinjection again confirmed appropriate positioning. Digital subtractionangiography was performed. Through the Cobra catheter, a 2.4 [place]ian Progreat microcatheter inconjunction with the microwire was [...] Diaz. Subsequently, the microcatheter wasremoved along with BTG's administration tubing and placed in appropriateradioactive waste container as per IFU. Attention was then turned to the segment 6 branch of the right hepaticartery supplying the segment 5/6 mass. Through the 5 Mal[place]ian Cobracatheter, a new 2.4 [place]ian Progreat microcatheter in conjunction with themicrowire was [...] touse a vascular closure device. The 5 Malawian [place] sheath was exchangedover a 0.035 inch Bentson wire for a 6 [place]ian Angio-Seal closure devicewhich was deployed as per IFU followed by 5 minutes of manual compression.A sterile occlusive dressing was then applied. No immediate complications. The patient tolerated the procedure well. Thepatient was transferred immediately after termination of procedure [facility]. Radiationsafety officer was present for supervisor vendor quality and radiation safetymonitoring. COMPARISON: MRI abdomen 02/16/2025, [...] with the finaledited report. Drafted by Gonzalez Beck MD on 04/02/2025 11:45 AM Final report signed by Kanika Diaz MD on 04/06/2025 7:20 PM us Kanika Diaz MD IMG IR PROCEDURES Final Res ult * NM Supervision Parenteral Radiomicrospheres Therapy Liver [...] Herson Mejia MD on 04/02/2025 3:14 PM Narrative 04/02/2025 [...] Y-90 TheraSpheres into segment 8 by interventional radiologist, Kanika Diaz MD. Second Administration: 49.46 mCi of Y-90 TheraSpheres deemed appropriate for treatment of hepatic lesion(s). Delivery apparatus returned [facility] and residual activity measured to determine administered activity. Intra-arterial administration of 48.11 mCi of Y-90 TheraSpheres into segment 6 by interventional radiologist, Kanika Diaz MD. COMPARISON/CORRELATION: Pre-therapy hepatic arterial perfusion scan [...] of Y-90 TheraSpheres intosegment 8 by interventional radiologist, Kanika Diaz MD. Second Administration: 49.46 mCi of Y-90 TheraSpheres deemed appropriatefor treatment of hepatic lesion(s). Delivery apparatus returned to [facility] and residual activitymeasured to determine administered activity. Intra-arterial administration of 48.11 mCi of Y-90 TheraSpheres intosegment 6 by interventional radiologist, Kanika Diaz MD. COMPARISON/CORRELATION: Pre-therapy hepatic arterial perfusion scan [...] Herson Mejia MD on 04/02/2025 3:14 PM us Kanika Diaz MD IMG NM PROCEDURES Final Res ult * Lavender Top (04/02/2025 7:28 AM EDT) Extra Hold for add-ons 04/02/2025 8:13 AM EDT [facility] Comment:Auto resulted. Blood Venous blood specimen / Unknown 04/02/2025 7:28 AM EDT 04/02/2025 7:33 AM EDT us Kanika Diaz MD LAB BLOOD ORDERABLES Final Result [facility] [address] [place] [address] * IR Therasphere Mapping (03/16/2025 4:22 PM EDT) Anatomical Region Laterality Modality X-Ray Angiograph y Impressions 03/26/2025 11:00 AM EDT Arterial mapping as described above for preprocedure Theraspheres selective internal radiation therapy. PLAN: - Bedrest with right leg straight x 2 hours - Patient to return to interventional radiology in approximately 2 weeks for Theraspheres administration CRITICAL RESULT: No. COMMUNICATION: Per this written report. By electronically signing this report, I, the attending physician, attest that I was present for the entire procedure(s) and agree with the final edited report. Drafted by Gonzalez Beck MD on 03/17/2025 5:43 PM Final report signed by Kanika Diaz MD on 03/26/2025 11:00 AM Narrative 03/26/2025 11:00 AM EDT CLINICAL INDICATION: 74 y.o. female with PMH of hepatic steatosis, elevated LFTs, and recently discovered right hepatic lobe mass. MR abdomen on 02/16/25 demonstrated a segment V/ 4.5 cm LI-RADS 5 mass. Patient presents for Theraspheres mapping. TECHNIQUE: Boiler/Chiller Operator: Kanika Diaz MD Secondary Air Tube Releaser: Gonzalez Beck M.D. Nurse: Sotero Carlton Technologist: Eugene Munguia Rad dose: 4271 mGy Medications: IV conscious sedation with continuous physiologic monitoring provided by a qualified healthcare professional using Versed 2 mg IV and Fentanyl 100 mcg IV. 1% Lidocaine SQ. Antibiotics: None. Duration of Conscious Sedation: Time out: 1249 hours close out: 1619 hours Procedure: The patient was identified. After the risks and benefits of the procedure were discussed with the patient, an informed written consent was obtained. The patient was then brought back to the interventional suite and placed supine on the table. A time out was performed. The patient was then prepped and draped in the normal sterile fashion. Strict hand hygiene protocol was observed. All personnel in the room were attired in surgical hat and mask. The operators were in surgical hat, mask, sterile gloves, and gowns. The operative site was prepped with 2% chlorhexidine for cutaneous antisepsis followed by sterile barrier draping. The right common femoral artery was identified in the groin. An infrainguinal site of access was marked on fluoroscopy. Overlying skin was anesthetized using 1% lidocaine. The artery was then accessed using micropuncture technique under ultrasound guidance. After standard exchange techniques, a 0.035 inch LGL/LatinMediosson wire was advanced. Access was secured using a 5 F vascular sheath. Ultrasound images were sent to permanent storage in PACS. We attempted to catheterize the SMA using a 5 F Sos Omni catheter, however the catheter was repeatedly dislodged when attempting digital subtraction angiography. Therefore, over a 0.035 inch stiffglide wire, the 5F Sos Omni catheter was exchanged for a 5F Cobra catheter. Using the 5 F cobra catheter, the SMA was catheterized. The position was confirmed with contrast injection. Digital subtraction angiography of the SMA was performed with a delayed portogram. Using the 5 F Cobra catheter, the celiac artery was catheterized. Digital subtraction angiography demonstrated delayed arterial tumoral blush within the right hepatic lobe. The 5 F cobra catheter was then advanced into the common hepatic artery over a 0.035 inch stiffglide wire. Hand contrast confirmed location. Digital subtraction angiography of the common hepatic artery again demonstrated tumoral blush overlying the right hepatic lobe. Intraprocedural CTA and CTV were performed which demonstrated enhancement of a 4.5cm mass centered in hepatic segment 5/6. An additional 1.3cm lesion in the hepatic dome was noted on the venous phase images. Via the 5 F Cobra catheter, a 2.8 F Progreat microcatheter was advanced into the right hepatic artery and digital subtraction angiography was performed which demonstrated enhancement of the entirety of the tumor. This was followed by CTA and CTV which showed arterial enhancement of the known lesion in hepatic segments 5/6. Subsequently, the microcatheter was advanced into the segment 6 branch of the right hepatic artery. Digital subtraction angiography, CTA, and CTV demonstrated this branch vessel to be the dominant arterial supply to the mass. From this position, 200mcg of intra-arterial nitroglycerin was administered. This was followed by instillation of 2.3mCi of Tc-99 MAA into this branch vessel. The microcatheter was then advanced into the segment 8 branch of the right hepatic artery. Digital subtraction angiography, CTA, and CTV demonstrated this branch vessel to supply the anteriormost portion of the mass. From this position, 100mcg of intra-arterial nitroglycerin was administered. This was followed by instillation of 2.4mCi of Tc-99 MAA into this branch vessel. The catheters were then removed. A run at the groin was performed to assess ability to use a vascular closure device. Arteriotomy site was closed with a 6F angioseal closure device followed by several minutes of manual compression. A sterile dressing was then applied. No immediate complications. The patient was transferred to recovery in stable condition. Postprocedure lower extremity pulses were unchanged. Dosimetry Planning: Complex three-dimensional dosimetry planning was performed using [id number] to guide Y-90 radioembolization with glass microspheres. Volumetric imaging datasets (CT/MRI) were co-registered with SPECT/CT and angiographic roadmaps to delineate hepatic arterial territories, tumor compartments, and adjacent normal liver and extrahepatic structures. A multi-compartment dosimetry model was utilized to calculate absorbed radiation doses at a tissue level. Tumor and liver volumes were segmented in 3D, and dose-volume histograms (DVHs) were generated for the tumor and non-target liver tissue. Perfusion-based modeling was used to simulate microsphere distribution and optimize dose delivery. COMPARISON: MRI abdomen 02/16/2025. FINDINGS: - DSA SMA: No arterial supply to the known right hepatic lobe mass. Patent portal vein. - DSA celiac artery: Patent splenic, left gastric, bilateral phrenic, common hepatic, and gastroduodenal arteries. A replaced left hepatic artery originates from the left gastric artery. Delayed arterial enhancement of a right hepatic lobe mass is noted. Delayed portogram demonstrated a patent portal venous system. - DSA common hepatic artery: Patent right hepatic, middle hepatic, GDA, and right gastric arteries. Delayed arterial enhancement of a right hepatic lobe mass is again noted. - DSA right hepatic artery: No extrahepatic branches. Redemonstration of the arterial enhancing segment 5/6 mass. - DSA, CTA, and CTV of segment 6 branch RHA: Dominant arterial supply to the right hepatic lobe mass. - DSA, CTA, and CTV of segment 8 branch RHA: This branch vessel supplies the anteriormost portion of the right hepatic lobe mass. COMPLICATION: No immediate. Procedure Note Kanika Diaz MD - 03/26/2025 CLINICAL INDICATION: 74 y.o. female with PMH of hepatic steatosis, elevated LFTs, and recentlydiscovered right hepatic lobe mass. MR abdomen on 02/16/25 demonstrated asegment V/ 4.5 cm LI-RADS 5 mass. Patient presents for Theraspheresmapping. TECHNIQUE: Boiler/Chiller Operator: Kanika Diaz MD Secondary Air Tube Releaser: Gonzalez Beck M.D. Nurse: Sotero Carlton Technologist: Eugene Munguia Rad dose: 4271 mGy Medications: IV conscious sedation with continuous physiologic monitoringprovided by a qualified healthcare professional using Versed 2 mg IV andFentanyl 100 mcg IV. 1% Lidocaine SQ. Antibiotics: None. Duration of Conscious Sedation: Time out: 1249 hours close out: 1619hours Procedure: The patient was identified. After the risks and benefits of the procedurewere discussed with the patient, an informed written consent was obtained.The patient was then brought back to the interventional suite and placedsupine on the table. A time out was performed. The patient was thenprepped and draped in the normal sterile fashion. Strict hand hygiene protocol was observed. All personnel in the room wereattired in surgical hat and mask. The operators were in surgical hat,mask, sterile gloves, and gowns. The operative site was prepped with 2%chlorhexidine for cutaneous antisepsis followed by sterile barrierdraping. The right common femoral artery was identified in the groin. Aninfrainguinal site of access was marked on fluoroscopy. Overlying skin wasanesthetized using 1% lidocaine. The artery was then accessed usingmicropuncture technique under ultrasound guidance. After standard exchangetechniques, a 0.035 inch Bentson wire was advanced. Access was securedusing a 5 F vascular sheath. Ultrasound images were sent to permanentstorage in PACS. We attempted to catheterize the SMA using a 5 F Sos Omni catheter, howeverthe catheter was repeatedly dislodged when attempting digital subtractionangiography. Therefore, over a 0.035 inch stiffglide wire, the 5F Sos Omnicatheter was exchanged for a 5F Cobra catheter. Using the 5 F cobracatheter, the SMA was catheterized. The position was confirmed withcontrast injection. Digital subtraction angiography of the SMA wasperformed with a delayed portogram. Using the 5 F Cobra catheter, the celiac artery was catheterized. Digitalsubtraction angiography demonstrated delayed arterial tumoral blush withinthe right hepatic lobe. The 5 F cobra catheter was then advanced into thecommon hepatic artery over a 0.035 inch stiffglide wire. Hand contrastconfirmed location. Digital subtraction angiography of the common hepaticartery again demonstrated tumoral blush overlying the right hepatic lobe.Intraprocedural CTA and CTV were performed which demonstrated enhancementof a 4.5cm mass centered in hepatic segment 5/6. An additional 1.3cmlesion in the hepatic dome was noted on the venous phase images. Via the 5 F Cobra catheter, a 2.8 F Progreat microcatheter was advancedinto the right hepatic artery and digital subtraction angiography wasperformed which demonstrated enhancement of the entirety of the tumor.This was followed by CTA and CTV which showed arterial enhancement of theknown lesion in hepatic segments 5/6. Subsequently, the microcatheter was advanced into the segment 6 branch ofthe right hepatic artery. Digital subtraction angiography, CTA, and CTVdemonstrated this branch vessel to be the dominant arterial supply to themass. From this position, 200mcg of intra-arterial nitroglycerin wasadministered. This was followed by instillation of 2.3mCi of Tc-99 MAAinto this branch vessel. The microcatheter was then advanced into the segment 8 branch of the righthepatic artery. Digital subtraction angiography, CTA, and CTV demonstratedthis branch vessel to supply the anteriormost portion of the mass. Fromthis position, 100mcg of intra-arterial nitroglycerin was administered.This was followed by instillation of 2.4mCi of Tc-99 MAA into this branchvessel. The catheters were then removed. A run at the groin was performed toassess ability to use a vascular closure device. Arteriotomy site wasclosed with a 6F angioseal closure device followed by several minutes ofmanual compression. A sterile dressing was then applied. No immediatecomplications. The patient was transferred to recovery in stablecondition. Postprocedure lower extremity pulses were unchanged. Dosimetry Planning: Complex three-dimensional dosimetry planning was performed [id number] to guide Y-90 radioembolization with glass microspheres.Volumetric imaging datasets (CT/MRI) were co-registered with SPECT/CT andangiographic roadmaps to delineate hepatic arterial territories, tumorcompartments, and adjacent normal liver and extrahepatic structures. A multi-compartment dosimetry model was utilized to calculate absorbedradiation doses at a tissue level. Tumor and liver volumes were segmentedin 3D, and dose-volume histograms (DVHs) were generated for the tumor andnon-target liver tissue. Perfusion-based modeling was used to simulatemicrosphere distribution and optimize dose delivery. COMPARISON: MRI abdomen 02/16/2025. FINDINGS: - DSA SMA: No arterial supply to the known right hepatic lobe mass. Patentportal vein. - DSA celiac artery: Patent splenic, left gastric, bilateral phrenic,common hepatic, and gastroduodenal arteries. A replaced left hepaticartery originates from the left gastric artery. Delayed arterialenhancement of a right hepatic lobe mass is noted. Delayed portogramdemonstrated a patent portal venous system. - DSA common hepatic artery: Patent right hepatic, middle hepatic, GDA,and right gastric arteries. Delayed arterial enhancement of a righthepatic lobe mass is again noted. - DSA right hepatic artery: No extrahepatic branches. Redemonstration ofthe arterial enhancing segment 5/6 mass. - DSA, CTA, and CTV of segment 6 branch RHA: Dominant arterial supply tothe right hepatic lobe mass. - DSA, CTA, and CTV of segment 8 branch RHA: This branch vessel suppliesthe anteriormost portion of the right hepatic lobe mass. COMPLICATION: No immediate. IMPRESSION: Arterial mapping as described above for preprocedure Theraspheresselective internal radiation therapy. PLAN: - Bedrest with right leg straight x 2 hours - Patient to return to interventional radiology in approximately 2 weeksfor Theraspheres administration CRITICAL RESULT: No. COMMUNICATION: Per this written report. By electronically signing this report, I, the attending physician, attestthat I was present for the entire procedure(s) and agree with the finaledited report. Drafted by Gonzalez Beck MD on 03/17/2025 5:43 PM Final report signed by Kanika Diaz MD on 03/26/2025 11:00 AM us Kanika Diaz MD IMG IR PROCEDURES Final Res ult * (ABNORMAL) POCT glucose meter (03/16/2025 9:34 AM EDT) Pathologist [facility] POCT Glucose 103(H) 74 - 99 mg/dL 03/16/2025 9:38 AM EDT [facility] Comment:Accuracy of a glucos e result obtained from a capillary whole blood specimen relies upon adequate, non-compromised capillary blood flow. If the capillary glucose result is not consistent with the patient's clinical signs and symptoms, glucose testing should be repeated with either an arterial or venous sample on the glucometer or sent to the main labortory for testing. Comment 03/16/2025 9:38 AM EDT [facility] Air Tube Releaser ID Natalie Marcelo 03/16/2025 9:38 AM EDT [facility] Device ID [id number] 03/16/2025 9:38 AM EDT [facility] Specimen Type POC Capillary 03/16/2025 9:38 AM EDT [facility] Blood Capillary blood specimen / Unknown 03/16/2025 9:34 AM EDT 03/16/2025 9:38 AM EDT us Kanika Diaz MD LAB POINT OF CARE T EST DOCKED DEVICE UNSOLICITED RESULTS Final Result Performing Organization Address City/State/[facility] Co de Phone Number [facility] [address] [place] [address] * (ABNORMAL) CBC W/O Differential (03/11/2025 10:13 AM EDT) Pathologist [facility] WBC Count 6.09 3.70 - 10.30 10*3/uL LAB HEMATOLOGY METHOD 03/11/2025 1:41 PM EDT [facility] RBC Count 2.92(L) 3.90 - 5.20 10*6/uL LAB HEMATOLOGY METHOD 03/11/2025 1:41 PM EDT [facility] HGB 10.6(L) 11.2 - 15.7 g/dL LAB HEMATOLOGY METHOD 03/11/2025 1:41 PM EDT [facility] HCT 29.4(L) 34.0 - 45.0 % LAB HEMATOLOGY METHOD 03/11/2025 1:41 PM EDT [facility] Platelet Count 95(L) 155 - 369 10*3/uL LAB HEMATOLOGY METHOD 03/11/2025 1:41 PM EDT [facility] MCV 101(H) 79 - 98 fL LAB HEMATOLOGY METHOD 03/11/2025 1:41 PM EDT [facility] MCH 36.3(H) 26.0 - 32.0 pg LAB HEMATOLOGY METHOD 03/11/2025 1:41 PM EDT [facility] MCHC 36.1(H) 30.7 - 35.5 g/dL LAB HEMATOLOGY METHOD 03/11/2025 1:41 PM EDT [facility] RDW 13.2 11.5 - 14.5 % LAB HEMATOLOGY METHOD 03/11/2025 1:41 PM EDT [facility] MPV 10.6 8.8 - 12.5 fL LAB HEMATOLOGY METHOD 03/11/2025 1:41 PM EDT [facility] nRBC 0.0 <=0.0 per 100 WBCs LAB HEMATOLOGY METHOD 03/11/2025 1:41 PM EDT [facility] Blood Venous blood specimen / Unknown Venipuncture / Unknown 03/11/2025 10:13 AM EDT 03/11/2025 10:13 AM EDT us Kala Anguiano [facility]ER[employer] [employer] LAB BLOOD ORDERABLES Final R esult [facility] [address] [place] [address] * CT Chest w IV Contrast (02/18/2025 6:23 PM EDT) Anatomical Region Laterality Modality Chest Computed Tomogra phy Impressions 02/19/2025 8:44 AM EDT No evidence of metastatic disease in the chest. CRITICAL RESULT: No. COMMUNICATION: Per this written report. Drafted by Ilan Bishop MD on 02/19/2025 8:40 AM Final report signed by Ilan Bishop MD on 02/19/2025 8:44 AM Narrative 02/19/2025 8:44 AM EDT CLINICAL INDICATION: HCC on recent MRI; eval for METS TECHNIQUE: Multiple CT helical images were obtained from thoracic inlet through upper abdomen with administration of IV contrast. 100 mL of Omnipaque-300 were administered intravenously. Total DLP (Dose-Length Product): 216.78 mGy.cm. Please note: The reported value represents the total of one or more individual components during the CT acquisition on this date and at this time, and as such, the same value may appear in more than one CT report depending on the interpreting/reporting physicians. COMPARISON: None FINDINGS: Mediastinum and Pleura: No mediastinal or hilar adenopathy. Moderate coronary artery calcifications. No pleural or pericardial effusion. Lungs: No airspace opacities or suspicious pulmonary nodules. Upper Abdomen: Nodular hepatic contour and portosystemic collaterals. The patient's known HCC is visible but not well depicted on this study; please refer to recent prior abdominal MRI. Musculoskeletal: No suspicious lytic or sclerotic lesion. Procedure Note Ilan Bishop MD - 02/19/2025 CLINICAL INDICATION: HCC on recent MRI; eval for METS TECHNIQUE: Multiple CT helical images were obtained from thoracic inlet through upperabdomen with administration of IV contrast. 100 mL of Omnipaque-300 wereadministered intravenously. Total DLP (Dose-Length Product): 216.78 mGy.cm. Please note: The reportedvalue represents the total of one or more individual components during theCT acquisition on this date and at this time, and as such, the same valuemay appear in more than one CT report depending on theinterpreting/reporting physicians. COMPARISON: None FINDINGS: Mediastinum and Pleura: No mediastinal or hilar adenopathy. Moderatecoronary artery calcifications. No pleural or pericardial effusion. Lungs: No airspace opacities or suspicious pulmonary nodules. Upper Abdomen: Nodular hepatic contour and portosystemic collaterals. Thepatient's known HCC is visible but not well depicted on this study; pleaserefer to recent prior abdominal MRI. Musculoskeletal: No suspicious lytic or sclerotic lesion. IMPRESSION: No evidence of metastatic disease in the chest. CRITICAL RESULT: No. COMMUNICATION: Per this written report. Drafted by Ilan Bishop MD on 02/19/2025 8:40 AM Final report signed by Ilan Bishop MD on 02/19/2025 8:44 AM [facility] PROCEDURES Final Result * Hepatitis C Antibody (07/31/2019 11:13 AM EST) Hepatitis C Antibody NEGATIVE Reference Range: Negative [facility] 07/31/2019 11:1 3 AM EST 07/31/2019 12:13 PM EST Result [facility] Darren Pinto MD LAB BLOOD ORDERABLES Final Resu lt SUNQUEST * (ABNORMAL) Hemoglobin A1c (07/31/2019 11:13 AM EST) Hemoglobin A1c 6.2(H) 4.7 - 6.0 % [facility] Comment: Glycohemoglobin Reference Range, 0 years and up: 4.7 to 6.0% . HA1C Interpretive Data: Diagnosis of Diabetes: Diabetic > or = 6.5% Pre-diabetic 5.7 to 6.4% Non-diabetic < or = 5.6% . Glycemic Targets for Type I and Type II Diabetics: Non- Adults <7.0% Adults <6.0% Children and Adolescents <7.5% . Source: [place] Diabetes Association. Standards of medical care in diabetes, 2017. Diabetes Care.2017:40 (suppl 1):S1-S135. . HbA1c assay performed by an ion-exchange chromatography method that is certified traceable to the DCCT. 07/31/2019 11:1 3 AM EST 07/31/2019 12:27 PM EST Result [facility] Darren Pinto MD LAB BLOOD ORDERABLES Final Resu lt SUNQUEST from Last 3 Months or Most Recently Relevant to Health Maintenance Additional Health Concerns Active Problems Noted Date Diagnosed Date Autogenerated Problem 12/03/2024 Insurance [facility] MEDICARE Care Teams Medical Technologist Prn Relationship Specialty Start Date End Date Juaquin Anaya MD [address] [place] [address] PCP - General 01/21/21 Eryn Valente MD [address] [phone] Medical Oncologist Hematology and Oncology 11/14/23
--- OUTSIDE RECORDS SUMMARY | 2025-05-21 15:49 | XMS_ITS | Clinical Summary ---
Author Organization [facility] Address [address] [place] [address] Care Team Providers Care Service Order Taker Name Role Phone Brittany Crespo APRN Primary Care Provid er Allergies Active Allergy Reactions Criticality Noted Date Comments Sulfa Antibiotics Nausea And Vomiting 8 Medications escitalopram (LEXAPRO) 10 MG tablet Take 1 tablet by mouth As Needed. Active Calcium Carbonate-Vitam in D (CALTRATE 600+D PO) Take by mouth 2 (Two) Times a Day. Active losartan-hydroc hlorothiazide (HYZAAR) 100-25 MG per tablet Take 1 tablet by mouth Daily. Active Ozempic, 0.25 or 0.5 MG/DOSE, 2 MG/3ML solution pen-injector Inject 0.25 mg under the skin into the appropriate area as directed 1 (One) Time Per Week. 4 Active spironolactone (ALDACTONE) 25 MG tablet Take 1 tablet by mouth 2 (Two) Times a Day. 4 Active Active Problems Problem Noted Date Diagnosed Date Takotsubo cardiomyopathy 10/09/2024 Overview (10/09/2024): 2012 after . Normal [facility] 2012 Hypertension, essential 10/09/2024 PAC (premature atrial contraction) 10/09/2024 Portal hypertension 07/25/2019 Thrombocytopenia 02/15/2018 Family History Medical History Relation Name Comments Aneurysm Maternal Uncle Aneurysm Mother Relation Name Status Comments Father Maternal Uncle Mother Social History Tobacco Use Types Packs/Day Years Used Date Smoking Tobacco: Never Smokeless Tobacco: Never Alcohol Use Standard Drinks/Week Comments No 0 (1 standard drink = 0.6 oz pur e alcohol) Comments Unknown Sex and Gender Information Value Date Recorded Sex Assigned at Not on file Legal Sex Female 1:44 PM EDT Gender Identity Not on file Sexual Orientation Not on file Last Filed Vital Signs Vital Sign Reading Time Taken Comments Blood Pressure 132/64 10/09/2024 10:19 AM EST Pulse 59 10/09/2024 10:19 AM EST Temperature 36.6 C (97.9 F) 07/25/2019 10:25 AM EST Respiratory Rate 18 07/25/2019 10:25 AM EST Oxygen Saturation 99% 10/09/2024 10:19 AM EST Inhaled Oxygen Concentration - - Weight 98.1 kg (216 lb 3.2 oz) 10/09/2024 10:19 AM EST Height 162.6 cm (5' 4 ) 10/09/2024 10:19 AM EST Body Mass Index 37.11 10/09/2024 10:19 AM EST Plan of Treatment Upcoming Encounters Date Type Department Care Team (Late st Contact Info) Description 10/15/2025 10:30 AM EST Office Visit [facility] [address] [id number] Cornell Ramos MD [address] [address] Health Maintenance Due Date Last Done Comments DXA SCAN 1949 DIABETIC EYE EXAM 1959 DIABETIC FOOT EXAM 1959 URINE MICROALBUMIN-CREATININ E RATIO (uACR) 1959 Pneumococcal Vaccine 50+ (1 of 2 - PCV) 1968 TDAP/TD VACCINES (1 - Tdap) 1968 COLOGUARD 1994 COLON CANCER SCREENING 5 YEA R SIGMOIDOSCOPY 1994 COLONOSCOPY 1994 COLORECTAL CANCER SCREENING 1994 CT COLONOGRAPHY 1994 FECAL OCCULT BLOOD TEST 1994 FIT Testing (1 year) 1994 ZOSTER VACCINE (1 of 2) 1999 Hepatitis B (1 of 3 - Risk 3 -dose series) 2009 ANNUAL WELLNESS VISIT 02/15/2018 HEMOGLOBIN A1C 01/29/2020 07/31/2019, 05/12/2014 RSV Vaccine - Adults (1 - 1- dose 75+ series) 2024 COVID-19 Vaccine (2024- season) 2025 01/08/2021, 11/10/2020, 10/11/2020 INFLUENZA VACCINE 06/10/2025 07/10/2022, 06/10/2021 HEPATITIS C SCREENING Completed 07/31/2019 Procedures Procedure Name Priority Date/Time Associated Diagnosis Comments HEMOGLOBIN A1C Routine 05/12/2014 9:54 AM EDT from Last 3 Months or Most Recently Relevant to Health Maintenance Results * (ABNORMAL) Hemoglobin A1c (05/12/2014 9:54 AM EDT) Hemoglobin A1C 7.0(H) 4.00 - 6.00 % [facility] Comment: DF by IF @ 05/12/2014 10:33 The [place] [employer] recommends maintenance of Hemoglobin A1C at 7.0% or lower. Goals for Hemoglobin A1C reduction may need to be modified if hypoglycemia is a problem. Mean Bld Glu Estim. 150 mg/dL [facility] Blood specimen (specimen) 05/12/2014 9:54 AM EDT Narrative [facility] - 05/12/2014 10:33 AM EDT Specimen Type: Blood Vadim Seaman MD LAB BLOOD ORDERABLES Final Re sult [facility] [address] [place] [address], from Last 3 Months or Most Recently Relevant to Health Maintenance Insurance [employer] PPO Care Teams Service Order Taker Relationship Specialty Start Date End Date Brittany Crespo APRN [address] [facility] [address] [place] [address] PCP - General Family Medicine 02/15/18
--- OUTSIDE RECORDS SUMMARY | 2025-05-21 15:49 | XMS_ITS | Encounter Summary ---
Author Organization Healthcare Address [address] [place] [address] Care Team Providers Care Beadworker Name Role Phone Juaquin Anaya MD Primary Care Provider [phone] Eryn Valente MD Unavailable [phone] Encounter Details Date Type Department Care Team (Late st Contact Info) Description 04/22/2025 Orders Only [facility] Medicine Specialties [address] [place] [address] Jefferson Barger, PA [address] [place] [address] Abnormal LFTs (Primary Dx); NAFLD (nonalcoholic fatty liver disease); Hepatocellular carcinoma Social History Tobacco Use Types [...] PM EDT Office Visit [facility] Medicine Specialties [address] [place] [address] Jefferson Barger PA [address] [place] [address] 07/03/2025 12:30 PM EDT Appointment [facility] [address] [place] [address] 07/06/2025 11:00 AM EDT Office Visit [facility] Vascular Interventional Radiology [address], [facility] [address] [place] [address] documented as of this encounter Goals Goal Patient Goal Type Associated Problems Recent Progress Patient-Stated? Author Autogenera dajuan Goal Care Plan Autogenerated Problem No Isabell Farrar documented as of this encounter Results * (ABNORMAL) Prothrombin Time/INR (05/15/2025 12:31 PM EDT) Prothrombin Time 16.9(H) 12.0 - 14.3 sec LAB COAGULATION METHOD 05/15/2025 2:34 PM EDT [facility] INR 1.4(H) 0.9 - 1.1 LAB COAGULATION METHOD 05/15/2025 2:34 PM EDT [facility] Blood Venous blood specimen / Unknown Venipuncture / Unknown 05/15/2025 12:31 PM EDT 05/15/2025 12:31 PM EDT Narrative [facility] - 05/15/2025 2:34 PM EDT OPTIMAL INR RANGES FOR PATIENT ON ORAL ANTICOAGULANT THERAPY Prevention of venous thromboembolism INR 2.0 to 3.0 In patients with heart disease: Atrial fibrillation INR 2.0 to 3.0 Valvular heart disease INR 2.0 to 3.0 Tissue heart valves INR 2.0 to 3.0 Mechanical prosthetic valves INR 2.5 to 3.5 Prevention of recurrent IA INR 2.5 to 3.5 us [facility] BLOOD ORDERABLES Final Res ult [facility] [address] [place] [address] * (ABNORMAL) Comprehensive Metabolic Panel, Plasma (05/15/2025 12:31 PM EDT) Glucose, Plasma 137(H) 74 - 99 mg/dL 05/15/2025 2:36 PM EDT [facility] BUN, Plasma 17 8 - 23 mg/dL 05/15/2025 2:36 PM EDT [facility] Creatinine, Plasma 0.97 0.60 - 1.10 mg/dL 05/15/2025 2:36 PM EDT [facility] BUN/Creatinine Ratio 18 05/15/2025 2:36 PM EDT [facility] Sodium, Plasma 127(L) 136 - 145 mmol/L 05/15/2025 2:36 PM EDT [facility] Potassium, Plasma 4.9 3.6 - 4.9 mmol/L 05/15/2025 2:36 PM EDT [facility] Chloride, Plasma 98 97 - 107 mmol/L 05/15/2025 2:36 PM EDT [facility] CO2, Plasma 20(L) 22 - 29 mmol/L 05/15/2025 2:36 PM EDT [facility] Anion Gap 9 6 - 16 mmol/L 05/15/2025 2:36 PM EDT [facility] Total Calcium, Plasma 9.1 8.9 - 10.2 mg/dL 05/15/2025 2:36 PM EDT [facility] Total Protein 6.1(L) 6.3 - 7.9 g/dL 05/15/2025 2:36 PM EDT [facility] Albumin, Plasma 3.1(L) 3.5 - 5.2 g/dL 05/15/2025 2:36 PM EDT [facility] AST, Plasma 60(H) 10 - 35 U/L 05/15/2025 2:36 PM EDT [facility] ALT, Plasma 33 10 - 35 U/L 05/15/2025 2:36 PM EDT [facility] Alkaline Phosphatase, Plasma 185(H) 46 - 142 U/L 05/15/2025 2:36 PM EDT [facility] Total Bilirubin, Plasma 2.2(H) 0.2 - 1.1 mg/dL 05/15/2025 2:36 PM EDT [facility] eGFRcr 60.7 mL/min/1.7 3m*2 05/15/2025 2:36 PM EDT [facility] Comment:Reported eGFRcr in m L/min/1.73m2 is based the CKD-EPI 2020 equation that does not use a race coefficient. Blood Venous blood specimen / Unknown Venipuncture / Unknown 05/15/2025 12:31 PM EDT 05/15/2025 12:31 PM EDT us [facility] BLOOD ORDERABLES Final Res ult [facility] [address] [place] [address] * (ABNORMAL) CBC and Differential (05/15/2025 12:31 PM EDT) WBC Count 4.17 3.70 - 10.30 10*3/uL LAB HEMATOLOGY METHOD 05/15/2025 2:18 PM EDT [facility] RBC Count 2.62(L) 3.90 - 5.20 10*6/uL LAB HEMATOLOGY METHOD 05/15/2025 2:18 PM EDT [facility] HGB 9.8(L) 11.2 - 15.7 g/dL LAB HEMATOLOGY METHOD 05/15/2025 2:18 PM EDT [facility] HCT 26.9(L) 34.0 - 45.0 % LAB HEMATOLOGY METHOD 05/15/2025 2:18 PM EDT [facility] Platelet Count 64(L) 155 - 369 10*3/uL LAB HEMATOLOGY METHOD 05/15/2025 2:18 PM EDT [facility] MCV 103(H) 79 - 98 fL LAB HEMATOLOGY METHOD 05/15/2025 2:18 PM EDT [facility] MCH 37.4(H) 26.0 - 32.0 pg LAB HEMATOLOGY METHOD 05/15/2025 2:18 PM EDT [facility] MCHC 36.4(H) 30.7 - 35.5 g/dL LAB HEMATOLOGY METHOD 05/15/2025 2:18 PM EDT [facility] RDW 13.5 11.5 - 14.5 % LAB HEMATOLOGY METHOD 05/15/2025 2:18 PM EDT [facility] MPV 10.3 8.8 - 12.5 fL LAB HEMATOLOGY METHOD 05/15/2025 2:18 PM EDT [facility] nRBC 0.0 <=0.0 per 100 WBCs LAB HEMATOLOGY METHOD 05/15/2025 2:18 PM EDT [facility] Differential Type Automated LAB HEMATOLOGY METHOD 05/15/2025 2:18 PM EDT [facility] Neutrophils % 63 % LAB HEMATOLOGY METHOD 05/15/2025 2:18 PM EDT [facility] Lymphocytes % 10 % LAB HEMATOLOGY METHOD 05/15/2025 2:18 PM EDT [facility] Monocytes % 16 % LAB HEMATOLOGY METHOD 05/15/2025 2:18 PM EDT [facility] Eosinophils % 8 % LAB HEMATOLOGY METHOD 05/15/2025 2:18 PM EDT [facility] Basophils % 1 % LAB HEMATOLOGY METHOD 05/15/2025 2:18 PM EDT [facility] Immature Granulocytes % 2 % LAB HEMATOLOGY METHOD 05/15/2025 2:18 PM EDT [facility] Neutrophils Absolute 2.63 1.60 - 6.10 10*3/uL LAB HEMATOLOGY METHOD 05/15/2025 2:18 PM EDT [facility] Lymphocytes Absolute 0.41(L) 1.20 - 3.90 10*3/uL LAB HEMATOLOGY METHOD 05/15/2025 2:18 PM EDT [facility] Monocytes Absolute 0.68 0.30 - 0.90 10*3/uL LAB HEMATOLOGY METHOD 05/15/2025 2:18 PM EDT [facility] Eosinophils Absolute 0.34 0.00 - 0.50 10*3/uL LAB HEMATOLOGY METHOD 05/15/2025 2:18 PM EDT [facility] Basophils Absolute 0.03 0.00 - 0.10 10*3/uL LAB HEMATOLOGY METHOD 05/15/2025 2:18 PM EDT [facility] Immature Granulocytes Absolute 0.08(H) 0.00 - 0.06 10*3/uL LAB HEMATOLOGY METHOD 05/15/2025 2:18 PM EDT [facility] Blood Venous blood specimen / Unknown Venipuncture / Unknown 05/15/2025 12:31 PM EDT 05/15/2025 12:31 PM EDT Narrative [facility] - 05/15/2025 2:18 PM EDT Therapeutic decision making should be based on absolute values, rather than percentages. [facility] BLOOD ORDERABLES Final Res ult Performing Organization Address [facility] Co de Phone Number [facility] [address] [place] [address] * (ABNORMAL) Alpha Fetoprotein, Serum (05/15/2025 12:31 PM EDT) Alpha Fetoprotein, Serum 24.4(H) <10.0 ng/mL 05/15/2025 3:49 PM EDT [facility] Blood Venous blood specimen / Unknown Venipuncture / Unknown 05/15/2025 12:31 PM EDT 05/15/2025 12:31 PM EDT [facility] - 05/15/2025 3:49 PM EDT Performed by Jamal electrochemiluminescent immunoassay which is traceable to the 1st AFP IRP WHO Reference standard 72/255. Results obtained with different test methods or kits cannot be used interchangeably. [facility] BLOOD ORDERABLES Final Res ult Performing Organization Address [facility]/ZIP Co de Phone Number [facility] [address] [place] [address] documented in this encounter Visit Diagnoses Diagnosis Abnormal LFTs- Primary NAFLD (nonalcoholic fatty liver disease) Hepatocellular carcinoma Malignant neoplasm of liver, primary [...] documented as of this encounter Care Teams Beadworker Relationship Specialty Start Date End Date Juaquin Anaya MD [address] [place] [address] PCP - General 01/21/21 Eryn Valente MD [address] [id number] Medical Oncologist Hematology and Oncology 11/14/23 documented as of this encounter
--- OUTSIDE RECORDS SUMMARY | 2025-05-21 15:49 | XMS_ITS | Patient Health Record ---
Author Organization [facility] Address [address] [place] [address] Care Team Providers Care Insurance Checker Name Role Phone Juaquin Anaya Primary Care Provider Brittany Crespo Unavailable [phone] Migration, Provider Unavailable Unavailable Allergies No Known Allergies Results Component Value Reference Range Notes Microalbumin (In-House) Reviewed date:05/14/2025 01:52:02 PM Interpretation:Normal Performing Lab: Notes/Report: Normal ALB 10 mg CRE 100 mg A:C < 30 mg/g LIPID PANEL, STANDARD (7600) Reviewed date:05/18/2025 11:20:44 AM Interpretation: Performing Lab:CB, [facility] [id number] [facility], [facility]dnv[facility]J[address] Dominic Ruth Notes/Report: NON-FASTING; NON-FASTING FASTING:YES FASTING: [...] LDL-C. Ari ROJAS et al. RIDDHI. 2013;310(19): 9762-8790 (http://education.LIFX.SynAgile/faq/DTF595) CHOL/HDLC RATIO 2.9 <5.0 (calc) NON HDL CHOLESTEROL 78 <130 mg/dL (calc) For patients with diabetes plus 1 major ASCVD risk factor, treating to a non-HDL-C goal of <100 mg/dL (LDL-C of <70 mg/dL) is considered a therapeutic option. HEMOGLOBIN A1c (496) Reviewed date:05/18/2025 11:20:44 AM Interpretation: Performing Lab:CB, [facility] [id number], [facility] HospitalYalaVY[address] Dominic Ruth Notes/Report: NON-FASTING; NON-FASTING FASTING:YES FASTING: [...] diagnosis of diabetes in children. According to [place] Diabetes Association (ADA) guidelines, hemoglobin A1c <7.0% represents optimal control in non- diabetic patients. Different metrics may apply to specific patient populations. Standards of Medical Care in Diabetes(ADA). M-Lipid Panel Reviewed date:07/08/2024 08:48:14 AM Interpretation: Performing Lab: Notes/Report: Patient Fasting? Y TRIG 74 30-150 mg/dl CHOL 136 140-200 mg/dl DLDL 61.34 100-129 mg/dL VLDL 15 0-40 mg/dL HDL 39 40-60 mg/dl CHLHDL 3.5 1-3.5 M-Hemoglobin A1C Reviewed date:07/08/2024 08:48:14 AM Interpretation: Performing Lab: Notes/Report: HGBA1C 4.7 4.0-6.0 % < 6% Non-Diabetic Level < 7% Controlled Diabetic Level > 8% Poorly Controlled Diabetic Level M-Comprehensive Metabolic Pa damian Reviewed date:07/08/2024 08:48:14 AM Interpretation: Performing Lab: Notes/Report: NA 139 136-145 mmol/L K 3.8 3.5-5.1 mmoL/L CL 108 98-107 mmol/L CO2 28 22.0-30.0 mmol/L GAP 6.8 5-15 mEq/L BUN 11 7-17 mg/dl CREATT 0.80 0.52-1.04 mg/dl GFRAA 85 >60 ML/MIN EGFR 70 >60 ml/min GLU 109 74-100 mg/dl CA 8.8 8.4-10.2 mg/dl BILIT 1.9 0.2-1.3 mg/dl AST 53 14-36 U/L ALT 30 12-78 U/L TP 5.6 6.3-8.2 g/dl ALB 2.4 3.5-5.0 g/dl GLOB 3.2 1.3-3.2 g/dL AGRATIO 0.8 1.1-1.8 ALP 105 38-126 U/L M-Complete Blood Count Auto Diff Reviewed date:07/08/2024 08:48:13 AM Interpretation: Performing Lab: Notes/Report: WBC 3.9 4.8-10.8 K/mm3 RBC 3.38 4.20-5.40 M/mm3 HGB 12.3 12.2-16.2 g/dL HCT 34.6 37.0-47.0 % MCV 102.3 81-99 fl MCH 36.2 27.0-31.2 pg MCHC 35.4 31.8-35.4 g/dL RDW 14.5 11.5-17.5 % PLT 69 142-424 K/mm3 MPV 8.3 7.4-10.4 fl NE% 52.6 37.0-80.0 % LY% 29.2 10-50 % MO% 10.0 1.7-9.3 % EO% 7.2 0.1-12.0 % BA% 0.9 0.1-2.0 % NE# 2.1 1.8-7.8 K/mm3 LY# 1.2 0.7-4.5 K/mm3 MO# 0.4 0.1-1.0 K/mm3 EO# 0.3 0.0-0.4 K/mm3 BA# 0.0 0-0.2 K/mm3 Medications Medication SIG (Take, Route, Frequency, Duration) Notes Start Date End Date Status Losartan Potassium-HCTZ 100-25 MG TAKE ONE TABLET BY MOUTH ONCE A DAY; Duration: 90 Active Triamcinolone Acetonide 0.1 % 1 application Externally twice a day; Duration: 7 days 03/10/2025 Active Nystop 286747 UNIT/GM 1 ko applied topi akosua 3 times a day; Duration: 10 days prn 11/23/2021 Active Caltrate 600+D Plus Minerals 600-800 MG-UNIT 1 tab(s) orally 2 times a day Active Escitalopram Oxalate 10 MG 1 tab(s) oral ly once a day at night; Duration: 90 days Active Triamcinolone Acetonide 0.1 % 1 ko applied topically 3 times a day; Duration: 7 days 05/22/2023 Active Levocetirizine Dihydrochloride 5 MG 1 tablet in the evening Orally Once a day; Duration: 30 days 04/06/2025 Active Carvedilol 3.125 MG 1 tablet with food O rally Twice a day Active Spironolactone 25 mg TAKE 1 TABLET [facility] DAILY; Duration: 30 Active FREE STYLE LITE TEST STRIPS DIRECTED BID AND PRN 04/03/2011 Active Ozempic (0.25 or 0.5 MG/DOSE) 2 MG/3ML INJECT 0.25 MG SUBCUTANEOUSLY ONCE WEEKLY; Duration: 28 Active FreeStyle Lancets DIRECTED BID AND PRN 04/03/20 11 Active Immunizations Vaccine Route Administration Date Status Comme nts Adacel (Tdap) Unknown 12/08/2021 Administered Arexvy IM Intramuscular 05/14/2025 Administered Fluzone High Dose IM Intramuscular 07/10/2018 Administered Fluzone High Dose IM Intramuscular 07/24/2019 Administered Fluzone High Dose IM Intramuscular 06/24/2020 Administered Fluzone High Dose IM Intramuscular 06/09/2021 Administered Fluzone High Dose IM Intramuscular 06/26/2022 Administered Fluzone High Dose IM Intramuscular 05/22/2023 Administered Fluzone High Dose IM Intramuscular 07/22/2024 Administered Influenza (Fluzone)--Medicare only IM Intramuscular 08/08/2016 Administered Influenza (Fluzone)--Medicare only IM Intramuscular 06/25/2017 Administered Pneumovax 23 IM Intramuscular 09/19/2018 Administered Prevnar PCV-13 (Pneumococcal conjugate 13) IM Intramuscular 10/02/2016 Administered SHINGRIX IM Intramuscular 11/27/2023 Administered SHINGRIX IM Intramuscular 03/25/2024 Administered Problems Problem Type SNOMED Code ICD Code Onset Dates Problem Status W/U Status Risk Notes Problem Type 2 diabetes mellitus with other specified complication (E11.69) Active confirmed Problem Type II diabetes mellitus without complication (821624153) Type 2 diabetes mellitus without complications (E11.9) Active confirmed Problem Mixed hyperlipidemia (777175988) Mixed hyperlipidemia (E78.2) Active confirmed Problem Hyperlipidemia (49463389) Hyperlipidemia, unspecified (E78.5) Active confirmed Problem Sciatica (74522784) Lumbago with sciatica, left side (M54.42) Active confirmed Problem Abnormal results of liver function studies (088672977) Abnormal results of liver function studies (R94.5) Active confirmed Problem Anxiety (56510610) Anxiety (F41.9) Active confi rmed Problem Vitamin D deficiency (67026504) Vitamin D deficiency (E55.9) Active confirmed Problem Essential hypertension (13538435) Essential hypertension (I10) Active confirmed Problem Body mass index 40+ - morbidly obese (905256815) BMI 40.0-44.9, adult (Z68.41) Active confirmed Problem Photodermatitis due to sun (L56.8) Active confirmed Problem Chronic pain (67636300) Other chronic pain (G89.29) Active confirmed Problem Obese class II (894981731618596) BMI 39.0-39.9,adult (Z68.39) Active confirmed Problem Obese class II (483166633240849) BMI 38.0-38.9,adult (Z68.38) Active confirmed Problem Thrombocytopenia (079850343) Thrombocytopenia (D69.6) Active confirmed Problem Atherosclerotic hear t disease of [place] coronary artery without angina pectoris (027599353907984) Coronary artery disease involving [place] coronary artery of [place] heart without angina pectoris (I25.10) Active confirmed Problem Pancytopenia (687568608) Pancytopenia (D61.818) Active confirmed Problem Hypoalbuminemia (442088007) Hypoalbuminemia (E88.09) Active confirmed Problem Cirrhosis - non-alcoholic (705290618) Cirrhosis of liver without ascites, unspecified hepatic cirrhosis type (K74.60) Active confirmed Problem Fatty liver (151989147) Fatty liver disease, nonalcoholic (K76.0) Active confirmed Problem Sacroiliac disorder (disorder) (323546033) Sacroiliac dysfunction (M53.3) Active confirmed Problem Osteopenia (disorder ) (158801133) Osteopenia determined by x-ray (M85.80) Active confirmed Problem Swelling of first metatarsophalangeal joint of hallux (893853320) Bunion of great toe of right foot (M21.611) Active confirmed Problem Osteoarthritis of left knee joint (393409874987501) Localized osteoarthritis of left knee (M17.12) Active confirmed Problem Primary malignant neoplasm of liver (44672348) HCC (hepatocellular carcinoma) (C22.0) Active confirmed Problem Cirrhosis - non-alcoholic (512622405) Hepatic cirrhosis, unspecified hepatic cirrhosis type, unspecified whether ascites present (K74.60) Active confirmed Vital Signs Heart Rate 74 /min 05/14/2025 Temperature 97.2 degrees Fahrenheit 05/14/2025 Blood pressure diastolic 58 mm Hg 05/14/2025 Height 63.75 in 05/14/2025 Blood pressure systolic 106 mm Hg 05/14/2025 Weight 224.8 lbs 05/14/2025 BMI 38.89 kg/m2 05/14/2025 Encounters Encounter Location Date Provider Diagnosis [facility] [address] [facility] [address] [place] [address] 12/13/2024 Provider Migration Type 2 diabetes mellitus with other specified complication E11.69 [facility] [address] [address] 07/09/2024 Brittany Crespo Essential hypertensi on I10 ; Type 2 diabetes mellitus with other specified complication E11.69 ; Thrombocytopenia D69.6 ; Anxiety F41.9 ; Fatty liver disease, nonalcoholic K76.0 ; Mixed hyperlipidemia E78.2 ; Hypoalbuminemia E88.09 and Lower extremity edema R60.0 [facility] [address] [place], [place] [address] 07/22/2024 Brittany Crespo Immunization(s) administered Z23 [facility] [place] [address] [address] 08/27/2024 Brittany Crespo Type 2 diabetes nohemi itus with other specified complication E11.69 ; Coronary artery disease involving [place] coronary artery of [place] heart without angina pectoris I25.10 ; Anxiety F41.9 ; Fatty liver disease, nonalcoholic K76.0 ; Hypoalbuminemia E88.09 and Pancytopenia D61.818 [facility] [place] [address] [address] 01/14/2025 Brittany Cherie Bronchitis J40 and Hepatic cirrhosis, unspecified hepatic cirrhosis type, unspecified whether ascites present K74.60 [facility] [address] [place] [address] [facility] L50.9 ; Cirrhosis of liver without ascites, unspecified hepatic cirrhosis type K74.60 ; HCC (hepatocellular carcinoma) C22.0 and Yeast dermatitis B37.2 [facility] [address] [place] [address] 04/06[facility] Lower resp. tract infection J22 ; Wheezing R06.2 and Nasal congestion R09.81 [facility] [address] [place] [address] 04/16/20[facility] Lower resp. tract infection J22 ; Wheezing R06.2 and Nasal congestion R09.81 [facility] [address] [place] [address] 05/14/2025 [facility] Visit for screening mammogram Z12.31 ; Medicare annual wellness visit, subsequent Z00.00 ; Type 2 diabetes mellitus with other specified complication E11.69 ; Encounter for immunization Z23 ; Cirrhosis of liver without ascites, unspecified hepatic cirrhosis type K74.60 ; HCC (hepatocellular carcinoma) C22.0 ; Essential hypertension I10 ; Thrombocytopenia D69.6 ; Anxiety F41.9 ; BMI 38.0-38.9,adult Z68.38 and Mixed hyperlipidemia E78.2 [facility] [address] [place] [address] 06/12/20[facility] Essential hypertensi on I10 ; Hyperlipidemia, unspecified E78.5 and Type 2 diabetes mellitus without complications E11.9 [facility] [place] [address] [address] 08/22/2024 Brittany Cherie [facility] [place] [address] [facility] [address] [place] [address] 01/07/2025 Juaquin Anaya Lower extremity oren a R60.0 [facility] with [facility] [address] [place] [address] 03/10/2025 Brittany Crespo Assessments Encounter Date Diagnosis (ICD Code) Assessment Notes Treatment Notes Treatment Clinical Notes Section Notes 06/12/2024 Hyperlipidemia, unspecified (ICD-10 - E78.5) 06/12/2024 Essential hypertension (ICD-10 - I10) 07/09/2024 Type 2 diabetes mellitus with other specified complication (ICD-10 - E11.69) Microalbumin normal. Labs are stable, weight gain is significant. Possibly from combination of stopping GLP1I and edema. No statin due to liver disease. 07/09/2024 Essential hypertension (ICD-10 - I10) Well-controlled on current regimen 07/22/2024 Immunization(s) administered (ICD-10 - Z23) 08/27/2024 Type 2 diabetes mellitus with other specified complication (ICD-10 - E11.69) well controlled on Ozempic 08/27/2024 Coronary artery disease involving [place] coronary artery of [place] heart without angina pectoris (ICD-10 - I25.10) 12/13/2024 Type 2 diabetes mellitus with other specified complication (ICD-10 - E11.69) 01/07/2025 Lower extremity edema (ICD-10 - R60.0) 01/14/2025 Bronchitis (ICD-10 - J40) Viral versus bacterial etiology discussed, recommend start antibiotics given her age and other risk factors. Encouraged to use her albuterol at night prior to sleep and as needed. Add plain Mucinex twice a day, continue Bella. Return precautions reviewed 01/14/2025 Hepatic cirrhosis, unspecified hepatic cirrhosis type, unspecified whether ascites present (ICD-10 - K74.60) Reviewed plan from the [facility], recent workup, medication regimen. Reassurance provided that I agree with this. 03/10/2025 Cirrhosis of liver without ascites, unspecified hepatic cirrhosis type (ICD-10 - K74.60) continue FU with , notes reviewed with patient 03/10/2025 Urticaria (ICD-10 - L50.9) if no improvement would recommend touching base with dermatology but has resolved previously with topical steroid. low dose HC cream and aquaphor over the involved area of the face 04/06/2025 Wheezing (ICD-10 - R06.2) 04/06/2025 Lower resp. tract infection (ICD-10 - J22) Given her age, sputum production, abnormal lung sounds and multiple risk factors for pneumonia we will start on oral antibiotics as noted. Encourage close follow-up in 1 week, sooner with any progressive symptoms. Also encouraged her to start plain Mucinex, use her albuterol as needed and add levocetirizine once a day. Return precautions reviewed 04/16/2025 Wheezing (ICD-10 - R06.2) 04/16/2025 Lower resp. tract infection (ICD-10 - J22) Lung exam is improved Continue xyzal, albuterol as needed, provided her a spacer to use with her inhaler encouraged to discuss coreg with her hepatology team, consider different beta collin if symptoms progress she needs CXR 05/14/2025 Visit for screening mammogram (ICD-10 - Z12.31) 05/14/2025 Medicare annual wellness visit, subsequent (ICD-10 - Z00.00) wellness is UTD with exception of updating mammogram. Declines DEXA repeat 05/14/2025 Type 2 diabetes mellitus with other specified complication (ICD-10 - E11.69) well controlled, labs as noted 04/16/2025 Nasal congestion (ICD-10 - R09.81) 04/06/2025 Nasal congestion (ICD-10 - R09.81) 03/10/2025 HCC (hepatocellular carcinoma) (ICD-10 - C22.0) 08/27/2024 Anxiety (ICD-10 - F41.9) Continue Lexapro, well-controlled 07/09/2024 Thrombocytopenia (ICD-10 - D69.6) stable and has hematology FU 06/12/2024 Type 2 diabetes mellitus without complications (ICD-10 - E11.9) 07/09/2024 Anxiety (ICD-10 - F41.9) Continue Lexapro, well-controlled 03/10/2025 Yeast dermatitis (ICD-10 - B37.2) 08/27/2024 Fatty liver disease, nonalcoholic (ICD-10 - K76.0) Has had workup previously, did not desire any additional specialty follow-up for some time but is agreeable now to further evaluate for cirrhosis contributing to her pancytopenia, elevated liver enzymes and low protein levels, continue low-fat diet, weight loss efforts 05/14/2025 Encounter for immunization (ICD-10 - Z23) 05/14/2025 Cirrhosis of liver without ascites, unspecified hepatic cirrhosis type (ICD-10 - K74.60) continue FU with [facility], notes reviewed with patient 07/09/2024 Fatty liver disease, nonalcoholic (ICD-10 - K76.0) Has had workup previously, does not desire any additional specialty follow-up at this point, continue low-fat diet, weight loss efforts 08/27/2024 Hypoalbuminemia (ICD-10 - E88.09) encouraged increased dietary protein 07/09/2024 Mixed hyperlipidemia (ICD-10 - E78.2) Statin therapy held secondary to liver disease, cardiology has reviewed this as well 08/27/2024 Pancytopenia (ICD-10 - D61.818) 05/14/2025 HCC (hepatocellular carcinoma) (ICD-10 - C22.0) s/p treatment and following with [facility] 05/14/2025 Essential hypertension (ICD-10 - I10) Well-controlled on current regimen 07/09/2024 Hypoalbuminemia (ICD-10 - E88.09) encouraged increased dietary protein 07/09/2024 Lower extremity edema (ICD-10 - R60.0) rec additon of spironolactone and if this is effective could stop lasix. keep FU with cardiology as well 05/14/2025 Thrombocytopenia (ICD-10 - D69.6) stable, due to cirrhosis 05/14/2025 Anxiety (ICD-10 - F41.9) continue lexapro 05/14/2025 BMI 38.0-38.9,adult (ICD-10 - Z68.38) weight is down overall, continue efforts 05/14/2025 Mixed hyperlipidemia (ICD-10 - E78.2) Statin therapy held secondary to liver disease, cardiology has reviewed this as well Plan Of Treatment Pending Test Test Name Order Date Ultrasound : Right Upper Quadrant 2012 Microalbumin (In-House) 01/05/2014 Echocardiogram 04/06/2014 Physical Therapy 07/28/2015 Mammogram : Bilateral 08/31/2011 H-CBC with AUTO DIFF 11/07/2012 H-CMP 11/07/2012 H-LIPID PANEL 11/07/2012 H-HGBA1C 11/07/2012 H-MICROALBUMIN URINE 11/07/2012 C-FERRITIN 12/20/2017 C-GGT 08/16/2015 C-CBC 12/20/2017 C-CBC 01/11/2011 C-CBC 04/03/2014 C-CBC 09/16/2014 C-CBC 10/14/2020 C-CBC 03/20/2019 C-CBC 07/20/2015 C-CBC 06/15/2020 C-CBC 06/06/2018 C-CMP 06/06/2018 C-CMP 09/19/2018 C-CMP 06/15/2020 C-CMP 07/20/2015 C-CMP 03/20/2019 C-CMP 10/14/2020 C-CMP 05/22/2011 C-CMP 01/05/2014 C-CMP 09/16/2014 C-CMP 06/25/2017 C-CMP 04/03/2014 C-CMP 01/11/2011 C-CMP 03/21/2016 C-CMP 10/02/2016 C-CMP 12/20/2017 C-MICROALBUMIN 10/02/2016 C-MICROALBUMIN 03/21/2016 C-MICROALBUMIN 04/03/2014 C-MICROALBUMIN 06/25/2017 C-MICROALBUMIN 09/16/2014 C-MICROALBUMIN 01/05/2014 C-MICROALBUMIN 03/20/2019 C-MICROALBUMIN 07/20/2015 C-MICROALBUMIN 06/15/2020 C-MICROALBUMIN 06/06/2018 C-LIPID PANEL 09/19/2018 C-LIPID PANEL 06/06/2018 C-LIPID PANEL 06/15/2020 C-LIPID PANEL 01/05/2014 C-LIPID PANEL 09/16/2014 C-LIPID PANEL 10/14/2020 C-LIPID PANEL 03/20/2019 C-LIPID PANEL 07/20/2015 C-LIPID PANEL 06/25/2017 C-LIPID PANEL 04/03/2014 C-LIPID PANEL 01/11/2011 C-LIPID PANEL 10/02/2016 C-LIPID PANEL 03/21/2016 C-LIPID PANEL 12/20/2017 C-AMYLASE 08/16/2015 C-TSH 12/20/2017 C-TSH 01/11/2011 C-CORY 08/16/2015 C-CORY 08/09/2017 C-URINE CULTURE 02/28/2021 C-URINE CULTURE 02/10/2021 C-URINE CULTURE 01/20/2021 C-HGBA1C 07/20/2015 C-HGBA1C 01/05/2014 C-HGBA1C 10/14/2020 C-HGBA1C 03/20/2019 C-HGBA1C 06/06/2018 C-HGBA1C 09/19/2018 C-HGBA1C 06/15/2020 C-HGBA1C 05/22/2011 C-HGBA1C 12/20/2017 C-HGBA1C 04/03/2014 C-HGBA1C 06/25/2017 C-HGBA1C 09/16/2014 C-HGBA1C 03/21/2016 C-HGBA1C 10/02/2016 C-HGBA1C 01/11/2011 C-VITAMIN D, 25-HYDROXY 03/21/2016 C-VITAMIN D, 25-HYDROXY 12/20/2017 C-VITAMIN D, 25-HYDROXY 09/19/2018 C-VITAMIN D, 25-HYDROXY 06/06/2018 C-VITAMIN D, 25-HYDROXY 10/14/2020 C-VITAMIN D, 25-HYDROXY 07/20/2015 M-Complete Blood Count Auto Diff 021 M-Complete Blood Count Auto Diff 024 M-Complete Blood Count Auto Diff 023 M-Complete Blood Count Auto Diff 024 M-Complete Blood Count Auto Diff 024 M-Comprehensive Metabolic Panel 11/08/19 24 M-Comprehensive Metabolic Panel 02/25/20 24 M-Comprehensive Metabolic Panel 10/24/19 23 M-Comprehensive Metabolic Panel 06/12/20 24 M-Comprehensive Metabolic Panel 02/11/20 21 M-Hemoglobin A1C 10/24/2022 M-Hemoglobin A1C 11/08/2023 M-Hemoglobin A1C 02/25/2024 M-Hemoglobin A1C 06/12/2024 M-Hemoglobin A1C 02/10/2021 M-Lipid Panel 06/12/2024 M-Lipid Panel 11/08/2023 M-Lipid Panel 10/24/2022 M-Lipid Panel 02/10/2021 M-Thyroid Stimulating Hormone 02/10/2021 M-Vitamin D 25 Hydroxy 02/10/2021 M-Vitamin D 25 Hydroxy 05/15/2023 M-Vitamin D 25 Hydroxy 02/25/2024 M-Microalb/Creat Ratio, Randm Ur 023 Culture, Urine 11/23/2021 Mammogram: Screening 05/14/2025 Future Test Test Name Order Date C-CBC 12/02/2020 C-CMP 12/02/2020 M-Vitamin D 25 Hydroxy 09/08/2021 Insurance Providers Payer Name Payer Address Payer Phone Subscriber Number Group Number Insured Name Patient Relationship to Insured Coverage Start Date Coverage End Date [employer] [address] [address] [place] [address] [id number] Malini Ma Self - patient is the insured Medications Administered Medication Instructions Date of Administration Dosage Notes Bicillin CR (adult dose) 09/04/2014 1.2 Ceftriaxone 500 12/14/2021 500 mg Kenalog 40mg 03/08/2017 40 mg Triamcinolone Acetonide 40mg Injection 04/26/2020 1 mL Kenalog 08/28/2014 1 mL Kenalog 09/04/2014 1 Kenalog 03/01/2015 1 mL Kenalog 06/09/2015 1 mL Kenalog 08/03/2015 1 mL Medical (General) History Medical History History ICD Code Degenerative Disc Disease s/p surgery wi Dr Ceja Right middle finger tendon rupture type II diabetes hypertension dysrhymthia Osteopenia noncritical CAD Chronic thrombocytopenia, evaluated by B aptist Hem/Onc clinic Portal HTN/Fatty liver disease positive cologuard test in January 2020 Liver cirrhosis Hepatocellular cancer Surgical History Surgery Date(Month/Year) Back surgery MARIBELL BSO Cholecystectomy heart catherization 2013 colonoscopy 05/2020 Y90 03/2025 Hospitalization History Reason Date(Month/Year) Surgeries Childbirth
--- OUTSIDE RECORDS SUMMARY | 2025-05-21 15:49 | XMS_ITS | Encounter Summary ---
Author Organization Healthcare Address [address] [id number] Care Team Providers Care Pie Dough Roller Name Role Phone Juaquin Anaya MD Primary Care Provider [phone] Eryn Valente MD Unavailable [phone] Encounter Details Date Type Department Care Team (Late st Contact Info) Description 02/16/2025 Results Follow-Up [facility] [address] [place] [address] Jefferson Barger, PA [address] [place] [address] Social History Tobacco Use Types Packs/Day Years [...] 2:22 PM EDT Magda Dooley R N * Calculated C-SSRS Risk Score (Lifetime/Recent) Answer Date of Assessment Author No Risk Indicated 03/16/2025 9:25 AM EDT Scarlett Ramey * Question Answer Date of Assessment Author 1. Wish to be (Past 1 Month) No 9:25 AM EDT Scarlett Ramey 2. Non-Specific Active Suici lilly Thoughts (Past 1 Month) No 03/16/2025 9:25 AM EDT Scarlett Ramey 6. Suicidal Behavior (Lifetime) No 9:25 AM EDT Scarlett Ramey documented as of this encounter Plan of Treatment Upcoming Encounters Date Type Department Care Team (Late st Contact Info) Description 06/04/2025 1:00 PM EDT Office Visit [facility] [address] [place] [address] Jefferson Barger PA [address] [place] [address] 07/03/2025 12:30 PM EDT Appointment [facility] [address] [place] [address] 07/06/2025 11:00 AM EDT Office Visit [facility] Vascular Interventional Radiology [address] [facility] [address] [place] [address] documented as of this encounter Goals Goal [...] has been complete d for the patient 12/02/2024 11:48 AM EDT A Body Mass Index follow-up plan has been documented for the patient 12/03/2024 1:03 AM EDT documented as of this encounter Care Teams Pie Dough Roller Relationship Specialty Start Date End Date Juaquin Anaya MD [address] [place] [address] PCP - General 01/21/21 Eryn Valente MD [address] [facility] [address] [place] [address] Medical Oncologist Hematology and Oncology 11/14/23 documented as of this encounter
== END 2025-05-21 23:59 | disposition home or self-care (01) ==
LOC: RAD 15:46
PROVIDERS: PCP Nurse Practitioner Family; Visit Provider Nurse Practitioner Family
DX: Z12.31 Encounter for screening mammogram for malignant neoplasm of breast (principal)
CPT/HCPCS: 77063; 77067